=== PATIENT | male | born 1940 ===

== ENCOUNTER 2018-09-16 08:32 | Inpatient (IN) | payer MEDICARE, OTHER ==
--- NOTE | 2018-09-16 08:44 | ED PDOC ---
Arrival/HPI - General Time Seen by Provider: 09/16/18 08:44 Historian: Patient, Family (daughter) - History of Present Illness Narrative History of Present Illness (Text): 09/16/18 09:18 A 78 year old male, whose past medical history includes hypertension, orthopnea and possible cirrhosis, presents to the emergency department complaining of abdominal bloating and chest tightness. Patient is accompanied by daughter, who translates some Macedonian for patient when patient does not understand. Patient reports he has been feeling bloated for several days, having woken up to find abdomen bloated and as well as bilateral leg swelling. Per daughter, patient saw PMD yesterday and PMD instructed for patient to visit the ER as soon as possible. States also experiencing hematuria, nausea, vomiting, and shortness of breath. Patient denies any chest pain, abdominal pain, fever, chills, cough, stool changes, or any other complaints at this time. Also, patient denies any history of diabetes, cardiac issues. Patient has not taken his blood pressure medication for 1 month due to not having received them. Last bowel movement was earlier this morning. Patient denies history of smoking, however has been drinking, according to patient, since he was 9 years old. PMD: Dr. Felipe May Past Medical History - Provider Review Nursing Documentation Reviewed: Yes - Cardiac Hx Angina: No Hx Atrial Fibrillation: No Hx Congestive Heart Failure: No Hx WV: No Hx Hypertension: Yes Hx Pacemaker: No Hx Peripheral Vascular Disease: No - Pulmonary Hx Asthma: No Hx Chronic Obstructive Pulmonary Disease (COPD): No - Neurological Hx Seizures: No - Musculoskeletal/Rheumatological Hx Arthritis: Yes - Surgical History Hx Cardiac Catheterization: No Hx Coronary Artery Bypass Graft: No Family/Social History - Physician Review Nursing Documentation Reviewed: Yes Family/Social History: No Known Family HX Allergies/Home Meds Allergies/Adverse Reactions: Allergies No Known Allergies Allergy (Verified 07/24/16 11:28) Home Medications: Home Meds Medication Instructions Recorded Confirmed Aspirin [Ecotrin] 81 mg PO DAILY 07/24/16 09/16/18 Losartan [Cozaar] 50 mg PO DAILY 07/24/16 09/16/18 Review of Systems - Physician Review All systems were reviewed & negative as marked: Yes - Review of Systems Constitutional: absent: Fevers, Night Sweats Respiratory: SOB. absent: Cough Cardiovascular: absent: Chest Pain (chest tightness instead) Gastrointestinal: Nausea, Vomiting. absent: Abdominal Pain, Stool Changes Genitourinary Male: Hematuria Musculoskeletal: Other (bilateral lower extremity swelling.) Physical Exam Vital Signs Reviewed: Yes Vital Signs Temp Pulse Resp BP Pulse Ox 09/16/18 08:43 98.1 F 148 H 18 140/114 H 97 Temperature: Afebrile Blood Pressure: Normal Pulse: Tachycardic Respiratory Rate: Normal Appearance: Positive for: Well-Appearing, Non-Toxic, Comfortable Pain Distress: None Mental Status: Positive for: Alert and Oriented X 3 - Systems Exam Head: Present: Atraumatic, Normocephalic Pupils: Present: PERRL Extroacular Muscles: Present: EOMI Conjunctiva: Present: Normal Mouth: Present: Moist Mucous Membranes Neck: Present: Normal Range of Motion Respiratory/Chest: Present: Clear to Auscultation, Good Air Exchange. No: Respiratory Distress, Accessory Muscle Use Cardiovascular: Present: Tachycardic Abdomen: Present: Distention, Normal Bowel Sounds. No: Tenderness, Peritoneal Signs Genitourinary Male: Present: Other (scrotum edema) Back: Present: Normal Inspection Upper Extremity: Present: Normal Inspection. No: Cyanosis, Edema Lower Extremity: Present: Edema (from abdomen to scrotum to lower extremities b/l) Neurological: Present: GCS=15, CN II-XII Intact, Speech Normal Skin: Present: Warm, Dry, Normal Color. No: Rashes Psychiatric: Present: Alert, Oriented x 3, Normal Insight, Normal Concentration Medical Decision Making ED Course and Treatment: 09/16/18 09:22 Impression: 78 year old male with abdominal bloating, lower extremity bilateral swelling, scrotum swelling, chest tightness, nausea, vomiting, hematuria, and shortness of breath. Physical exam shows abdomen is distended with positive bowel sounds; lower extremity and scrotum edema. Plan: -- EKG -- Abd/Pelvis CT -- Chest X-ray -- Labs -- Dextrose -- Zofran -- Venous Blood Gas -- Urinalysis -- Reassess and disposition Progress Notes: EKG: Ordered, reviewed, and independently interpreted the EKG. Rate : 148 BPM Rhythm : Atrial Fibrillation Interpretation : No ST-segment elevations or depressions, no T-wave inversions, normal intervals. Comparison : No previous EKG for comparison. 09/16/2018 10:58 Abd/Pelvis CT IMPRESSION: Minimal ascites and subcutaneous edema. Moderate size right pleural effusion with adjacent consolidation in the right lo wer lobe. Small left effusion. Study otherwise unremarkable. Dictator: Guillaume Mann MD 09/16/2018 11:15 Chest X-ray IMPRESSION: Bilateral pleural effusions right larger than left with associated compressive atelectasis. These are new findings compared to the prior chest radiograph and are better visualized, confirmed on recent CT scan. Dictator: Guillaume Mann MD 09/16/18 11:24 Results discussed with patient. Lactate is 2.2 elevated; elevated BNP 8500, BUN is 25, and heart rate currently ranging from 110-mid 120s. After reviewing findings of CT Abd/Pelvis, blood culture and abx ordered for patient. Patient to be admitted. 09/16/18 12:25 Repeat EKG shows A-fib @ 125 BPM with normal QRS, no T-wave changes. Case discussed with Dr. Mckeon, who accepts patient for admission. Patient star yariel on Bernardo drip. - Lab Interpretations I have reviewed the lab results: Yes - Scribe Statement The provider has reviewed the documentation as recorded by the Scribe Gary Hernandez Provider Scribe Attestation: All medical record entries made by the Scribe were at my direction and personally dictated by me. I have reviewed the chart and agree that the record accurately reflects my personal performance of the history, physical exam, medical decision making, and the department course for this patient. I have also personally directed, reviewed, and agree with the discharge instructions and disposition. Disposition/Present on Arrival - Present on Arrival Any Indicators Present on Arrival: No History of DVT/PE: No History of Uncontrolled Diabetes: No Urinary Catheter: No History of Decub. Ulcer: No - Disposition Have Diagnosis and Disposition been Completed?: Yes Diagnosis: Cirrhosis of liver, Atrial fibrillation with RVR, Dyspnea Disposition: HOSPITALIZED Disposition Time: 12:00 Patient Plan: Admission, Telemetry Patient Problems: Current Active Problems Problem Status Onset Cirrhosis of liver Acute Atrial fibrillation with RVR Acute Dyspnea Acute Condition: FAIR
[2018-09-16] MEDS ORDERED: Multivitamin (MVI) 10 ML, Thiamine 100 MG, Folic Acid 1 MG in Dextrose 5% In Water 1,00... IV ONE (09:13)
[2018-09-16 09:32] LABS: VENOUS BLOOD GAS BASE EXCESS -1.1 mmol/L (0.0-2.0); VENOUS BLOOD GAS PO2 39 mm/Hg (30-55); VENOUS BLOOD PH 7.33 (7.32-7.43)
[2018-09-16 09:39] LABS: BASO # 0.02 K/mm3 (0.0-2.0); BASO % 0.3 % (0.0-3.0); EOS # 0.1 (0.0-0.7); EOS % 0.8 % (1.5-5.0); GRAN # 5.78 (1.4-6.5); GRAN % 76.8 % (50.0-68.0); HEMOGLOBIN 15.1 g/dL (14.0-18.0); LYMPH # 1.1 (1.2-3.4); LYMPH % 14.5 % (22.0-35.0); MEAN CELL VOLUME 91.1 fl (80.0-105.0); MEAN CORPUSCULAR HEMOGLOBIN 31.1 pg (25.0-35.0); MEAN CORPUSCULAR HGB CONC 34.2 g/dl (31.0-37.0); MEAN PLATELET VOLUME 11.8 fl (7.0-11.0); MONO # 0.6 (0.1-0.6); MONO % 7.6 % (1.0-6.0); RBC 4.85 10^6/uL (3.5-6.1); RED CELL DISTRIBUTION WIDTH 13.2 % (11.5-14.5); WHITE BLOOD COUNT 7.5 10^3/uL (4.5-11.0)
[2018-09-16 09:40] LABS: ALB/GLOB RATIO 1.3 (1.1-1.8); ALBUMIN 3.6 g/dL (3.0-4.8); ALT/SGPT 74 U/L (7-56); AST/SGOT 70 U/L (17-59); BLOOD UREA NITROGEN 25 mg/dL (7-21); CALCIUM 8.9 mg/dL (8.4-10.5); GFR NON-AFRICAN AMERICAN 58; LIPASE 230 U/L (23-300)
[2018-09-16 09:43] LABS: INR 1.39; PARTIAL THROMBOPLASTIN TIME 28.4 Seconds (25.1-36.5); PROTHROMBIN TIME 16.1 SECONDS (9.4-12.5)
[2018-09-16 09:51] LABS: B-TYPE NATRIURETIC PEPTIDE 8510 pg/mL (0-450); TROPONIN I 0.05 ng/mL
--- NOTE | 2018-09-16 11:02 | CT ---
Date of service: 09/16/2018 PROCEDURE: CT Abdomen and Pelvis with contrast HISTORY: abd pain/ascites COMPARISON: None. TECHNIQUE: Contrast dose: 150 cc of Omni 350 Radiation dose: Total exam DLP = 930.35 mGy-cm. This CT exam was performed using one or more of the following dose reduction techniques: Automated exposure control, adjustment of the mA and/or kV according to patient size, and/or use of iterative reconstruction technique. FINDINGS: LOWER THORAX: Moderate size right pleural effusion with adjacent consolidation in the right lower lobe. Small left effusion LIVER: Unremarkable. No gross lesion or ductal dilatation. GALLBLADDER AND BILE DUCTS: Unremarkable. PANCREAS: Unremarkable. No gross lesion or ductal dilatation. SPLEEN: Unremarkable. ADRENALS: Unremarkable. No mass. KIDNEYS AND URETERS: Unremarkable. No hydronephrosis. No solid mass. VASCULATURE: Unremarkable. No aortic aneurysm. Aortic calcification BOWEL: Unremarkable. No obstruction. No gross mural thickening. APPENDIX: Normal appendix. PERITONEUM: Minimal ascites. Mild subcutaneous edema LYMPH NODES: Unremarkable. No enlarged lymph nodes. BLADDER: Unremarkable. REPRODUCTIVE: Unremarkable. BONES: Multilevel disc degeneration OTHER FINDINGS: None. IMPRESSION: Minimal ascites and subcutaneous edema. Moderate size right pleural effusion with adjacent consolidation in the right lower lobe. Small left effusion The study is otherwise unremarkable
[2018-09-16] MEDS ORDERED: cefTRIAXone 1 gm 1 GM/100 ML BAG IVPB STA (11:10)
--- NOTE | 2018-09-16 11:19 | RAD ---
Date of service: 09/16/2018 HISTORY: Shortness of breath. COMPARISON: 03/20/2016 single-view chest September 16, 2018 CT abdomen and pelvis demonstrating right pleural effusion and compressive atelectasis. Small left pleural effusion was also identified. FINDINGS: LUNGS: Consolidative changes bilaterally right greater than left lower lobe distribution. PLEURA: Bilateral pleural effusions right larger than left. CARDIOVASCULAR: No atherosclerotic calcification present No radiographic findings to suggest acute or significant cardiovascular disease. OSSEOUS STRUCTURES: No significant abnormalities. VISUALIZED UPPER ABDOMEN: Normal. OTHER FINDINGS: None. IMPRESSION: Bilateral pleural effusions right larger than left with associated compressive atelectasis. These are new findings compared to the prior chest radiograph and are better visualize, confirmed on recent CT scan.
[2018-09-16] MEDS ORDERED: diltiaZEM IVPB 100mg in NS 100 ML IV PRN (12:26)
[2018-09-16 13:56] LABS: VENOUS BLOOD GAS BASE EXCESS -0.7 mmol/L (0.0-2.0); VENOUS BLOOD GAS PO2 33 mm/Hg (30-55); VENOUS BLOOD PH 7.29 (7.32-7.43)
[2018-09-16] MEDS ORDERED: Enoxaparin 100 mg Syringe SC STA (14:33)
--- NOTE | 2018-09-16 14:48 | CP.PCM.HP ---
<Mitch Reinoso - Last Filed: 09/16/18 15:34> History of Present Illness - History of Present Illness History of Present Illness: Mitch Reinoso DO, PGY-1 Hospitalist Admission History and Physical for Dr. Barraza CC: worsening LE swelling, chest discomfort, shortness of breath Mr. Arias is a 78 year old male with PMH of HTN, alcoholic liver cirrhosis, intermittent angina (stress test in 2016 was normal), and BPH presented to [facility] ED with a complaint of b/l LE swelling worsening over the past two months. He saw his PMD, Dr. Mya, about this problem who was concerned and recommended he come to ED. He admits to a history of heavy drinking, approximately 4-5 beers per day and/or hard liquor nearly everyday since he was 9 years old. He states that he also has chest discomfort that has been worsening over the past few days. He describes the pain as a dull, achy type pain that is intermittent and worse with exertion. He also admits to SOB with exertion. He also endorses dry cough, orthopnea, PND, and gross hematuria. Otherwise he denies fever, chills, palpitations, nausea/vomiting/diarrhea, peripheral numbness tingling, BENTLEY, vision changes, or dysuria. Further evaluation in the ED revealed patient is in AFib. He denies hx of AFib, and states he saw Dr. Molina in the past for stress test but has otherwise had no heart problems. 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 Denies current or prior tobacco use. Denies other drug use. Present on Admission - Present on Admission Any Indicators Present on Admission: No History of DVT/PE: No History of Uncontrolled Diabetes: No Urinary Catheter: No Decubitus Ulcer Present: No Review of Systems - Constitutional Constitutional: absent: Chills, Fever - EENT Eyes: absent: Change in Vision, Loss of Vision - Cardiovascular Cardiovascular: Chest Pain, Claudication, Dyspnea, Irregular Heart Rhythm, Orthopnea, Paroxysmal Nocturnal Dyspnea, Pedal Edema, Rapid Heart Rate. absent: Chest Pain at Rest, Diaphoresis - Respiratory Respiratory: Cough, Dyspnea, Dyspnea on Exertion. absent: Wheezing, Chest Congestion, Pain with Coughing - Gastrointestinal Gastrointestinal: Bloating. absent: Abdominal Pain, Diarrhea, Nausea, Vomiting - Genitourinary Genitourinary: Hematuria. absent: Change in Urinary Stream, Difficulty Urinating, Dysuria, Flank Pain - Reproductive: Male Additional comments: testicular and penile swelling - Musculoskeletal Musculoskeletal: Joint Swelling. absent: Muscle Weakness, Numbness - Integumentary Integumentary: Swelling. absent: Skin Pain, Sores - Neurological Neurological: absent: Numbness, Weakness - Endocrine Endocrine: absent: Excessive Sweating, Fatigue, Palpitations - Hematologic/Lymphatic Hematologic: absent: Easy Bleeding, Easy Bruising Past Patient History - Infectious Disease Hx of Infectious Diseases: None - Past Social History Smoking Status: Unknown If Ever Smoked - CARDIAC Hx Angina: No Hx Atrial Fibrillation: No Hx Congestive Heart Failure: No Hx Heart Attack: No Hx Hypertension: Yes Hx Pacemaker: No Hx Peripheral Vascular Disease: No - PULMONARY Hx Asthma: No Hx Chronic Obstructive Pulmonary Disease (COPD): No - NEUROLOGICAL Hx Seizures: No - MUSCULOSKELETAL/RHEUMATOLOGICAL Hx Arthritis: Yes - PSYCHIATRIC Hx Substance Use: No - SURGICAL HISTORY Hx Cardiac Catheterization: No Hx Coronary Artery Bypass Graft: No - ANESTHESIA Hx Anesthesia Reactions: No Meds Allergies/Adverse Reactions: Allergies Allergy/AdvReac Type Severity Reaction Status Date / Time No Known Allergies Allergy Verified 09/16/18 15:21 Physical Exam - Constitutional Appears: Non-toxic, No Acute Distress - Head Exam Head Exam: ATRAUMATIC, NORMOCEPHALIC - Eye Exam Eye Exam: EOMI, Scleral icterus - ENT Exam ENT Exam: Mucous Membranes Moist - Neck Exam Neck exam: Positive for: Full Rom, Normal Inspection - Respiratory Exam Respiratory Exam: Decreased Breath Sounds (slight decreased breath sounds at bases b/l), Clear to Auscultation Bilateral. absent: Accessory Muscle Use, Chest Wall Tenderness, Rales, Rhonchi, Wheezes - Cardiovascular Exam Cardiovascular Exam: Irregular Rhythm, +S1, +S2. absent: Diastolic murmur, Gallop, Rubs, Systolic Murmur - GI/Abdominal Exam GI & Abdominal Exam: Distended, Normal Bowel Sounds. absent: Firm, Guarding, Hernia, Rebound Additional comments: significant hepatomegaly palpated - Exam Exam: Scrotal Swelling. absent: Circumcision, Testicular Tenderness, Uretheral Discharge - Extremities Exam Extremities exam: Positive for: pedal edema, tenderness (calf tenderness on right), pedal pulses present Additional comments: significant b/l LE 2+ pitting edema - Back Exam Back exam: NORMAL INSPECTION - Neurological Exam Neurological exam: Alert, Oriented x3 - Psychiatric Exam Psychiatric exam: Normal Affect, Normal Mood - Skin Skin Exam: Dry, Intact, Warm Results - Vital Signs Recent Vital Signs: Last Vital Signs Temp 98.9 F 09/16/18 14:00 Pulse 108 H 09/16/18 14:00 Resp 18 09/16/18 13:33 BP 131/80 09/16/18 14:00 Pulse Ox 97 09/16/18 14:00 - Labs Result Diagrams: 09/16/18 09:20 09/16/18 09:20 Labs: Laboratory Results - last 24 hr 09/16/18 09/16/18 09/16/18 09:20 09:20 09:20 WBC 7.5 RBC 4.85 Hgb 15.1 Hct 44.2 MCV 91.1 MCH 31.1 MCHC 34.2 RDW 13.2 Plt Count 219 MPV 11.8 H Gran % 76.8 H Lymph % (Auto) 14.5 L Snyder % (Auto) 7.6 H Eos % (Auto) 0.8 L Baso % (Auto) 0.3 Gran # 5.78 Lymph # (Auto) 1.1 L Snyder # (Auto) 0.6 Eos # (Auto) 0.1 Baso # (Auto) 0.02 PT 16.1 H INR 1.39 APTT 28.4 pO2 39 VBG pH 7.33 VBG pCO2 48.0 VBG HCO3 25.3 VBG Total CO2 26.8 VBG O2 Sat (Calc) 74.5 H VBG Base Excess -1.1 L VBG Potassium 4.1 Sodium 133.0 Chloride 97.0 L Glucose 124 H Lactate 2.2 H FiO2 21.0 Potassium Carbon Dioxide Anion Gap BUN Creatinine Est GFR ( Amer) Est GFR (Non-Af Amer) Random Glucose Calcium Magnesium Total Bilirubin AST ALT Alkaline Phosphatase Troponin I NT-Pro-B Natriuret Pep Total Protein Albumin Globulin Albumin/Globulin Ratio Lipase Venous Blood Potassium 4.1 09/16/18 09/16/18 09:20 13:20 WBC RBC Hgb Hct MCV MCH MCHC RDW Plt Count MPV Gran % Lymph % (Auto) Snyder % (Auto) Eos % (Auto) Baso % (Auto) Gran # Lymph # (Auto) Snyder # (Auto) Eos # (Auto) Baso # (Auto) PT INR APTT pO2 33 VBG pH 7.29 L VBG pCO2 56.0 VBG HCO3 26.9 VBG Total CO2 28.6 H VBG O2 Sat (Calc) 63.6 VBG Base Excess -0.7 L VBG Potassium 4.2 Sodium 134 131.0 L Chloride 99 95.0 L Glucose 125 H Lactate 2.4 H FiO2 21.0 Potassium 4.2 Carbon Dioxide 26 Anion Gap 14 BUN 25 H Creatinine 1.2 Est GFR ( Amer) > 60 Est GFR (Non-Af Amer) 58 Random Glucose 122 H Calcium 8.9 Magnesium 1.9 Total Bilirubin 2.8 H AST 70 H ALT 74 H Alkaline Phosphatase 157 H Troponin I 0.05 NT-Pro-B Natriuret Pep 8510 H Total Protein 6.4 Albumin 3.6 Globulin 2.8 Albumin/Globulin Ratio 1.3 Lipase 230 Venous Blood Potassium 4.2 Assessment & Plan - Assessment and Plan (Free Text) Assessment: 78 yo M with PMH of HTN, alcoholic liver cirrhosis, angina (prior normal stress test) presents with worsening LE edema, in AFib, has chest discomfort, orthopnea, PND, b/l pleural effusions, and gross hematuria. Plan: 1. LE edema Likely 2/2 undiagnosed alcoholic liver cirrhosis Patient admits to heavy drinking history Patient appears jaundiced, icteric on exam, and has significant hepatomegaly CTAP shows ascites surrounding the liver and basilar pleural effusions b/l Will start lasix 40 mg IVP q12h Will get b/l LE doppler to r/o DVT On therapeutic lovenox for episode of AFib On empiric rocephin, zithromax for SBP ppx, f/u procal GI consulted, recs appreciated 2. Chest discomfort/new onset AFib Found on EKG on admission, still has irregularly irregular rhythm on exam Patient does not admit to any prior cardiac history other than negative stress test At the time he had anginal symptoms with exertion which he states have not returned He saw Dr. Molina in the past Continue diltiazem drip Monitor HR closely on telemetry Therapeutic lovenox given today BNP also elevated at 8510 Will get baseline echo F/u further cardiology recs Cardiology consulted, recs appreciated 3. Gross hematuria Patient states he has noticed blood in his urine for the past week Will get UA, urine cx Patient states he has history of BPH and has seen urologist in the past On empiric rocephin, zithromax for SBP ppx Consider urology and/or ID consult depending on results of UA, cx 4. B/l Pleural effusions Basilar effusions found on CTAP Likely 2/2 volume overload from worsening cirrhosis Has dyspnea on exertion, orthopnea, PND F/u pulmonology recs for possible thoracentesis vs medical management Pulmonology following, reccs appreciated 5. Cirrhosis Likely 2/2 chronic alcohol abuse MELD score of 18 GI consulted, recs appreciated 6. Abdominal bloating On protonix for ppx Consider adding malox as needed DVT/GI PPX: Lovenox (therapeutic for AFib, f/u further cardiology recs), SCD, protonix Full Code HHD Monitor on telemetry Case and plan reviewed and discussed with my attending Dr. Christi Reinoso, IM Resident PGY-1 Pager: [phone] <Cathi Barraza - Last Filed: 09/18/18 08:17> Results - Vital Signs Recent Vital Signs: Last Vital Signs Temp 98.3 F 09/18/18 06:00 Pulse 110 H 09/18/18 06:00 Resp 20 09/18/18 06:00 BP 103/68 09/18/18 06:00 Pulse Ox 96 09/18/18 06:00 - Labs Result Diagrams: 09/18/18 06:00 09/18/18 06:00 Labs: Laboratory Results - last 24 hr 09/16/18 09/16/18 09/17/18 17:00 17:00 06:00 WBC RBC Hgb Hct MCV MCH MCHC RDW Plt Count MPV Gran % Lymph % (Auto) Snyder % (Auto) Eos % (Auto) Baso % (Auto) Gran # Lymph # (Auto) Snyder # (Auto) Eos # (Auto) Baso # (Auto) Sodium Potassium Chloride Carbon Dioxide Anion Gap BUN Creatinine Est GFR ( Amer) Est GFR (Non-Af Amer) Random Glucose Hemoglobin A1c 6.0 Calcium Phosphorus Magnesium Total Bilirubin AST ALT Alkaline Phosphatase Total Protein Albumin Globulin Albumin/Globulin Ratio Procalcitonin < 0.05 L Hepatitis A IgM Ab Negative Hep Bs Antigen Negative Hep B Core IgM Ab Negative Hepatitis C Antibody Negative 09/18/18 09/18/18 06:00 06:00 WBC 6.0 D RBC 4.55 Hgb 13.8 L Hct 40.9 L MCV 89.9 MCH 30.3 MCHC 33.7 RDW 13.0 Plt Count 193 MPV 11.8 H Gran % 70.5 H Lymph % (Auto) 18.3 L Snyder % (Auto) 8.2 H Eos % (Auto) 2.5 Baso % (Auto) 0.5 Gran # 4.24 Lymph # (Auto) 1.1 L Snyder # (Auto) 0.5 Eos # (Auto) 0.2 Baso # (Auto) 0.03 Sodium 134 Potassium 3.3 L Chloride 95 L Carbon Dioxide 32 Anion Gap 11 BUN 21 Creatinine 1.2 Est GFR ( Amer) > 60 Est GFR (Non-Af Amer) 58 Random Glucose 88 Hemoglobin A1c Calcium 8.5 Phosphorus 4.6 H Magnesium 1.9 Total Bilirubin 1.6 H AST 47 ALT 52 Alkaline Phosphatase 106 Total Protein 5.6 L Albumin 3.0 Globulin 2.6 Albumin/Globulin Ratio 1.1 Procalcitonin Hepatitis A IgM Ab Hep Bs Antigen Hep B Core IgM Ab Hepatitis C Antibody Attending/Attestation - Attestation I have personally seen and examined this patient.: Yes I have fully participated in the care of the patient.: Yes I have reviewed all pertinent clinical information: Yes Notes (Text): 09/18/18 08:13 Attending note; Patient seen and examined with resident in ER. Patient's daughter by the bedside. History from patient's daughter. Patient is a 78 year old male with PMH of HTN, alcohol abuse, intermittent angina (stress test in 2016 was normal), BPH admitted with bilateral lower extremity swelling worsening over the past two months. Patient is also complaining of some exertional dyspnea. 1. Exertional dyspnea and bilateral lower extremity swelling. Possible CHF. Started on IV Lasix. Echocardiogram ordered. Lower extremity Doppler ordered to rule out DVT. Cardiology evaluation requested. 2. New-onset A. fib; currently on Cardizem. Started on therapeutic dose Lovenox. Follow-up with cardiology closely. 3. Chronic alcohol abuse. Complete alcohol cessation is strongly recommended. Monitor with CIWA protocol. Ativan when necessary ordered. 4. Elevated LFTs and mild ascites; secondary to alcohol abuse. Monitor closely. 5. Bilateral pleural effusion; mostly secondary to CHF. Pulmonary evaluation requested. IR requested for possible thoracentesis. 6. Dark urine; possibly concentrated urine.UA ordered. Physical therapy evaluation requested. Upon discharge the patient will follow up with PMD .
[2018-09-16 16:04] VITALS: BMI 34.3
[2018-09-16] MEDS ORDERED: Influenza Vaccine 60 mcg/0.5 mL SYR (4YR UP) IM ONE (16:04)
[2018-09-16] MEDS ORDERED: Pneumococcal 23-Valent Vaccine IM ONE (16:04)
--- NOTE | 2018-09-16 17:03 | CP.PCM.CON ---
History of Present Illness - History of Present Illness History of Present Illness: PULMONARY CONSULT NOTE HPI Patient is 78yo male with PMHx of HTN, heavy etoh abuse, BPH, presented to the ER complaining of b/l LE edema worsening over last 2 months, associated with chronic cough productive of clear sputum, and SOB, particularly on exertion. Pt denies, fever, chills, chest pain, palpitations, BENT[place], dizziness. Pt drinks 3-4 beers/day for 64years. No other constitutional symptoms. CXR revealed R>L pleural effusion, which is new. PMH: HTN, alcoholic liver cirrhosis, BPH PSH: hand surgery Allergies: NKDA Meds: as per EMR Fam Hx: non-contributory Soc Hx: admits to drinking about 4-5 beers or more daily since age 9. Denies current or prior tobacco use. Denies other drug use. 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 ASCITES,SCROTAL EDEMA - MUSCULOSKELETAL/RHEUMATOLOGICAL Hx Arthritis: Yes - GASTROINTESTINAL Hx Gastrointestinal Disorders: Yes Hx Liver Failure: Yes (CIRRHOSIS OF LIVER.) - GENITOURINARY/GYNECOLOGICAL Hx Genitourinary Disorders: No - PSYCHIATRIC Hx Substance Use: No - SURGICAL HISTORY Hx Cardiac Catheterization: No Hx Coronary Artery Bypass Graft: No - ANESTHESIA Hx Anesthesia Reactions: No Meds Allergies/Adverse Reactions: Allergies Allergy/AdvReac Type Severity Reaction Status Date / Time No Known Allergies Allergy Verified 09/16/18 15:21 - Medications Medications: Current Medications Aspirin (Aspirin Chewable) 81 mg PO DAILY [facility] Last Admin: 09/16/18 15:05 Dose: 81 mg Enoxaparin Sodium (Lovenox) 90 mg SC Q12 ROSANNE; Protocol Furosemide (Lasix) 40 mg IVP Q12H ROSANNE Last Admin: 09/16/18 15:05 Dose: 40 mg diltiaZEM IVPB 100mg in NS (Cardizem 100mg In Ns) 100 mls @ 5 mls/hr IV .Q20H PRN; Protocol PRN Reason: TITRATE PER MD ORDER Last Admin: 09/16/18 12:49 Dose: 5 mg/hr, 5 mls/hr Ceftriaxone Sodium (Rocephin 1 Gram Ivpb) 1 gm in 100 mls @ 100 mls/hr IVPB DAILY [facility]ANNE; Protocol Azithromycin (Zithromax 500mg In Ns) 500 mg in 250 mls @ 167 mls/hr IVPB DAILY [facility]ANNE; Protocol Lorazepam (Ativan) 2 mg IVP Q6H PRN; Protocol PRN Reason: Symptoms of alcohol withdrawl Pantoprazole Sodium (Protonix Ec Tab) 40 mg PO 0600 [facility] Physical Exam - Constitutional Appears: Non-toxic, No Acute Distress, Younger Than Stated Age - Head Exam Head Exam: NORMAL INSPECTION - Eye Exam Eye Exam: Normal appearance - ENT Exam ENT Exam: Mucous Membranes Moist - Neck Exam Neck exam: Positive for: Full Rom - Respiratory Exam Respiratory Exam: Decreased Breath Sounds, Rales, NORMAL BREATHING PATTERN - Cardiovascular Exam Cardiovascular Exam: REGULAR RHYTHM, +S1, +S2 - GI/Abdominal Exam GI & Abdominal Exam: Normal Bowel Sounds, Soft - Extremities Exam Additional comments: +2 edema b/l - Back Exam Back exam: NORMAL INSPECTION - Neurological Exam Neurological exam: Alert, Oriented x3 Results - Vital Signs Recent Vital Signs: Last Vital Signs Temp 98.9 F 09/16/18 14:00 Pulse 108 H 09/16/18 14:00 Resp 18 09/16/18 15:23 BP 133/87 09/16/18 15:05 Pulse Ox 97 09/16/18 14:00 - Labs Result Diagrams: 09/16/18 09:20 09/16/18 09:20 Labs: Laboratory Results - last 24 hr 09/16/18 09/16/18 09/16/18 09:20 09:20 09:20 WBC 7.5 RBC 4.85 Hgb 15.1 Hct 44.2 MCV 91.1 MCH 31.1 MCHC 34.2 RDW 13.2 Plt Count 219 MPV 11.8 H Gran % 76.8 H Lymph % (Auto) 14.5 L [place] % (Auto) 7.6 H Eos % (Auto) 0.8 L Baso % (Auto) 0.3 Gran # 5.78 Lymph # (Auto) 1.1 L [place] # (Auto) 0.6 Eos # (Auto) 0.1 Baso # (Auto) 0.02 PT 16.1 H INR 1.39 APTT 28.4 pO2 39 VBG pH 7.33 VBG pCO2 48.0 VBG HCO3 25.3 VBG Total CO2 26.8 VBG O2 Sat (Calc) 74.5 H VBG Base Excess -1.1 L VBG Potassium 4.1 Sodium 133.0 Chloride 97.0 L Glucose 124 H Lactate 2.2 H FiO2 21.0 Potassium Carbon Dioxide Anion Gap BUN Creatinine Est GFR ( Amer) Est GFR (Non-Af Amer) Random Glucose Calcium Magnesium Total Bilirubin AST ALT Alkaline Phosphatase Troponin I NT-Pro-B Natriuret Pep Total Protein Albumin Globulin Albumin/Globulin Ratio Lipase Venous Blood Potassium 4.1 09/16/18 09/16/18 09:20 13:20 WBC RBC Hgb Hct MCV MCH MCHC RDW Plt Count MPV Gran % Lymph % (Auto) Cost[place] % (Auto) Eos % (Auto) Baso % (Auto) Gran # Lymph # (Auto) Costilla # (Auto) Eos # (Auto) Baso # (Auto) PT INR APTT pO2 33 VBG pH 7.29 L VBG pCO2 56.0 VBG HCO3 26.9 VBG Total CO2 28.6 H VBG O2 Sat (Calc) 63.6 VBG Base Excess -0.7 L VBG Potassium 4.2 Sodium 134 131.0 L Chloride 99 95.0 L Glucose 125 H Lactate 2.4 H FiO2 21.0 Potassium 4.2 Carbon Dioxide 26 Anion Gap 14 BUN 25 H Creatinine 1.2 Est GFR ( Amer) > 60 Est GFR (Non-Af Amer) 58 Random Glucose 122 H Calcium 8.9 Magnesium 1.9 Total Bilirubin 2.8 H AST 70 H ALT 74 H Alkaline Phosphatase 157 H Troponin I 0.05 NT-Pro-B Natriuret Pep 8510 H Total Protein 6.4 Albumin 3.6 Globulin 2.8 Albumin/Globulin Ratio 1.3 Lipase 230 Venous Blood Potassium 4.2 Assessment & Plan - Assessment and Plan (Free Text) Assessment: 78 yo male with CAP, Pleural effusion, SOB/GOFF CAP Pleural effusion SOB/GOFF Cirrhosis EtOH abuse - currently afebrile, HD stable, comfortable on room air, on cardizem drip at 5mg/hr, Afib (new) - labs, imaging, chart reviewed - on exam has decreased breath sounds on the right and rales bilaterally - on bedside U/S of lung, demonstrates moderate to large R pleural effusion, with B lines bilaterally - Bedside ECHO demonstrates mild pericardial effusion, and depressed EF (official ECHO pending) - differential diagnosis of pleural effusions is broad, and not limited to volume overload, hepatic hydrothorax, parapneumonic effsion(less likely), mal ignancy (less likely) - obtain CT chest without contrast - obtain ECHO - IR guided thoracentesis - Rocephin, Azithro - Check Procal, Urine Legionella, Strep - Duonebs PRN - Rate control - cardiology eval - Pulmonary will continue to follow
[2018-09-16] MEDS ORDERED: Digoxin 500 mcg/2ml (0.5 mg/2ml) Inj IVP ONE ×2 (17:45→22:00)
[2018-09-16] MEDS ORDERED: metOLazone 5 MG TAB PO STA (17:48)
[2018-09-16 17:58] LABS: URINE BILIRUBIN NEGATIVE (NEGATIVE); URINE BLOOD NEGATIVE (NEGATIVE); URINE GLUCOSE (UA) NEGATIVE (NEGATIVE); URINE LEUKOCYTE ESTERASE NEGATIVE Leu/uL (NEGATIVE); URINE PROTEIN NEGATIVE mg/dL (<30 mg/dL); URINE UROBILINOGEN 0.2 E.U./dL (<1 E.U./dL)
[2018-09-16 18:00] LABS: URINE APPEARANCE CLEAR (CLEAR); URINE COLOR YELLOW (YELLOW)
[2018-09-16] MEDS: Milrinone 20mg/100ml D5W 100 ML IV PRN (18:15)
--- NOTE | 2018-09-16 18:16 | US ---
HISTORY: Leg pain and swelling. Evaluate for DVT PHYSICIAN(S): Uri oDzier MD. TECHNIQUE: Duplex sonography and color-flow Doppler with graded compression were used to evaluate the deep venous systems of both lower extremities. The exam is limited by edema. The tibial veins are not well seen FINDINGS: The visualized deep venous systems of both lower extremities are sonographically normal and compressible. Normal wave forms and augmentation are seen. There is no sonographic evidence for deep venous thrombosis in the visualized segments of both lower extremities. IMPRESSION: No sonographic evidence for deep venous thrombosis in the visualized segments of both lower extremities. Limited study
--- NOTE | 2018-09-16 18:39 | CARD ---
APPROVED REPORT Date of service: 09/16/2018 EKG Measurement Heart [id number] <Conclusion> Atrial fibrillation with rapid ventricular response Low voltage QRS Nonspecific T wave abnormality, probably digitalis effect Abnormal ECG
--- NOTE | 2018-09-16 18:45 | CARD ---
APPROVED REPORT Date of service: 09/16/2018 EKG Measurement Heart [id number] <Conclusion> Atrial fibrillation with rapid ventricular response Low voltage QRS Nonspecific T wave abnormality, probably digitalis effect Abnormal ECG
[2018-09-16 18:59] LABS: PH,URINE 5.5 (4.7-8.0); URINE BILIRUBIN NEGATIVE (NEGATIVE); URINE BLOOD NEGATIVE (NEGATIVE); URINE GLUCOSE (UA) NEGATIVE (NEGATIVE); URINE LEUKOCYTE ESTERASE NEGATIVE Leu/uL (NEGATIVE); URINE PROTEIN NEGATIVE mg/dL (<30 mg/dL); URINE UROBILINOGEN 0.2 E.U./dL (<1 E.U./dL)
[2018-09-16 19:00] LABS: URINE APPEARANCE CLEAR (CLEAR); URINE COLOR YELLOW (YELLOW)
[2018-09-16 19:20] LABS: BODY FLUID TYPE PLEURAL
--- NOTE | 2018-09-16 19:42 | US ---
PROCEDURE: Ultrasound guided right thoracentesis. CLINICAL HISTORY: ETOH abuse. Bilateral pleural effusions, greater on the right than the left. Needs diagnostic and therapeutic thoracentesis PHYSICIAN(S): Uri Dozier MD. TECHNIQUE: The relative risks and indications of the procedure were explained to the patient and consent obtained. The patient was placed in a sitting position on the stretcher and sonography of the chest performed. This revealed a small to moderate right pleural effusion and a tiny left pleural effusion.. A right posterolateral intercostal approach was selected and the area prepped and draped usual sterile fashion. 1% Xylocaine was used to anesthetize the skin and soft tissues. A 7 Bengali thoracentesis catheter was trocared into the right pleural cavity and 850of clear straw-colored fluid aspirated. Specimens were sent to the lab. IMPRESSION: 1. Ultrasound guided right thoracentesis. 850 cc of clear straw-colored fluid was aspirated. The appropriate labs were sent
[2018-09-16 20:43] LABS: BF GROSS APPEARANCE SL CLOUDY (CLEAR)
[2018-09-16 20:44] LABS: BODY FLUID TOTAL COUNT 100 (0-0)
[2018-09-16] MEDS: Enoxaparin 100 mg Syringe SC SCH (22:18)
[2018-09-17] MEDS: Milrinone 20mg/100ml D5W 100 ML IV PRN ×2 (02:32→14:49)
[2018-09-17] MEDS: Pantoprazole 40 mg EC Tab PO SCH (05:40)
[2018-09-17 06:46] LABS: ALB/GLOB RATIO 1.2 (1.1-1.8); ALT/SGPT 61 U/L (7-56); AST/SGOT 53 U/L (17-59); BLOOD UREA NITROGEN 19 mg/dL (7-21); CALCIUM 8.6 mg/dL (8.4-10.5); GFR NON-AFRICAN AMERICAN > 60; HDL CHOLESTEROL 36 mg/dL (29-60)
[2018-09-17 06:53] LABS: LDL CHOLESTEROL 80 mg/dL (0-129)
[2018-09-17 07:04] LABS: BASO # 0.04 K/mm3 (0.0-2.0); BASO % 0.5 % (0.0-3.0); EOS # 0.1 (0.0-0.7); EOS % 1.7 % (1.5-5.0); GRAN # 5.42 (1.4-6.5); GRAN % 71.9 % (50.0-68.0); HEMOGLOBIN 13.8 g/dL (14.0-18.0); LYMPH # 1.4 (1.2-3.4); LYMPH % 18.9 % (22.0-35.0); MEAN CORPUSCULAR HEMOGLOBIN 30.3 pg (25.0-35.0); MEAN CORPUSCULAR HGB CONC 33.3 g/dl (31.0-37.0); MEAN PLATELET VOLUME 11.8 fl (7.0-11.0); MONO # 0.5 (0.1-0.6); RBC 4.56 10^6/uL (3.5-6.1); WHITE BLOOD COUNT 7.6 10^3/uL (4.5-11.0)
--- NOTE | 2018-09-17 08:40 | CON ---
DATE: 09/16/2017 CARDIAC EVALUATION REASON FOR EVALUATION: Admitted with shortness of breath, possibly congestive heart failure. BRIEF CLINICAL HISTORY: A 78-year-old male with past medical history significant for hypertension, alcohol abuse, alcoholic liver disease, cirrhosis, admitted with complaint of progressively worsening shortness of breath, two months, over a period, the patient developed PND, orthopnea and now with dyspnea on minimal exertional activity initially, now with orthopnea and PND. PAST HISTORY: Significant for hypertension, alcoholic liver disease, cirrhosis. Recent cardiac workup as follows. The patient had a stress test, 07/24/2016, that shows an ejection fraction 52%, with essentially significant no reversible ischemia, 07/24/2016. SOCIAL HISTORY: Denies any smoking, but used to drink heavily, starting at the age of 9 and now drinks every day 24 ounces of beer, 3 to 4 cans everyday with hard liquor as well. Family is at the bedside, information obtained through the family, especially the daughter and the son-in-law. The daughter name Ramona, telephone number [phone]. ALLERGIES: NO KNOWN DRUG ALLERGY. CURRENT MEDICATION: The patient at home was taking losartan 50 mg, aspirin 81 mg daily. REVIEW OF SYSTEMS: As per HPI. PHYSICAL EXAMINATION VITAL SIGNS: Height of the patient 5 feet 6 inches, weight of the patient 213 pounds, body mass index 34 kg/m2. Temperature afebrile, heart rate 108, blood pressure 133/62. HEENT: PERRLA. Intact. NECK: Supple. No carotid bruit or thyromegaly. CHEST: Clear to auscultation. HEART: S1, S2, regular. ABDOMEN: Soft. EXTREMITIES: Clubbing and cyanosis negative. LABORATORY DATA: EKG shows AFib with a rate of 70. Blood workup as follows. WBC 7.5, hemoglobin 15.1, hematocrit 44.2, platelet count 215. Chemistry shows sodium 134, potassium 4.2, chloride 99, carbon dioxide 26, anion gap of 14, BUN 25, creatinine 1.2. BNP 8516. IMAGING: Chest x-ray showed possibly bilateral pleural effusion, moderate right, lesser on the left side. IMPRESSION: A 78-year-old male with past medical history significant for alcoholic abuse, alcoholic liver disease, admitted with progressively worsening shortness of breath, congestive heart failure, most likely secondary to systolic dysfunction secondary to alcoholic liver disease as well as alcoholic cardiomyopathy. New onset atrial fibrillation, paroxysmal nocturnal dyspnea, orthopnea, 2+ pedal edema. RECOMMENDATION: Aggressive diuresis, put low dose of Primacor, continue Cardizem for now and later on change to the Cardizem if the rate is well controlled to p.o. versus verapamil p.o. Continue Lovenox for DVT. Discussed with the patient. We will get echo to assess LV function. Further recommendation based on hospital course, we will follow with you. Eventually, the patient may need cardiac catheterization to evaluate coronary anatomy. We will follow with you. Thank you Dr. Barraza for providing an opportunity in taking care of the patient, Jayce Arias. Karan Moore MD
--- NOTE | 2018-09-17 09:03 | RAD ---
Date of service: 09/17/2018 HISTORY: rt thora COMPARISON: Portable chest 09/16/2018 TECHNIQUE: Chest PA and lateral FINDINGS: LUNGS: There is improved aeration of the right base may reflect improved pleural effusion and/or airspace disease. No left pleural effusion or airspace disease appreciated. No pneumothorax bilaterally. PLEURA: As above. CARDIOVASCULAR: Cardiomegaly stable. No pulmonary vascular congestion. No calcified aortic atherosclerotic plaque appreciated. OSSEOUS STRUCTURES: No significant abnormalities. VISUALIZED UPPER ABDOMEN: Normal. OTHER FINDINGS: None. IMPRESSION: Stable cardiomegaly. Improved aeration right base with diminished right pleural effusion and/or airspace disease noted.
--- NOTE | 2018-09-17 09:53 | CP.PCM.PN ---
Subjective - Date & Time of Evaluation Date of Evaluation: 09/17/18 Time of Evaluation: 06:50 - Subjective Subjective: Awake, alert, no distress Reason for consultation and follow up: Cardiac evaluation of leg swelling,shortness of breath intermittent chest pain. History of hypertension,alcoholic liver cirrhosis, intermittent angina and BPH. Seen and examined by me and Dr. Moore Objective - Vital Signs/Intake and Output Vital Signs (last 24 hours): Temp Pulse Resp BP Pulse Ox 97.5 F L 108 H 20 129/81 91 L 09/17/18 06:00 09/17/18 06:00 09/17/18 06:00 09/17/18 06:00 09/17/18 06:00 Intake and Output: 09/17/18 09/17/18 06:59 18:59 Intake Total 245 Output Total 0 Balance -1805 - Medications Medications: Current Medications Aspirin (Aspirin Chewable) 81 mg PO DAILY [facility] Last Admin: 09/16/18 15:05 Dose: 81 mg Carvedilol (Coreg) 3.125 mg PO BID [facility] Last Admin: 09/16/18 18:20 Dose: 3.125 mg Enoxaparin Sodium (Lovenox) 90 mg SC Q12 ROSANNE; Protocol Last Admin: 09/16/18 22:18 Dose: 90 mg Furosemide (Lasix) 40 mg IVP 0600,1800 [facility] Last Admin: 09/17/18 05:39 Dose: 40 mg Ceftriaxone Sodium (Rocephin 1 Gram Ivpb) 1 gm in 100 mls @ 100 mls/hr IVPB DAILY [facility]NE; Protocol Azithromycin (Zithromax 500mg In Ns) 500 mg in 250 mls @ 167 mls/hr IVPB DAILY [facility]ANNE; Protocol Milrinone Lactate/Dextrose (Primacor 20mg/100ml D5w) 100 mls @ 10.869 mls/hr IV .Q9H13M PRN; Protocol PRN Reason: TITRATE PER MD ORDER Last Admin: 09/17/18 02:32 Dose: 0.375 mcg/kg/min, 10.869 mls/hr Lisinopril (Zestril) 2.5 mg PO DAILY [facility] Lorazepam (Ativan) 2 mg IVP Q6H PRN; Protocol PRN Reason: Symptoms of alcohol withdrawl Metolazone (Zaroxolyn) 5 mg PO DAILY [facility] Stop: 09/20/18 23:59 Pantoprazole Sodium (Protonix Ec Tab) 40 mg PO 0600 [facility] Last Admin: 09/17/18 05:40 Dose: 40 mg Spironolactone (Aldactone) 25 mg PO BID [facility] Last Admin: 09/16/18 18:19 Dose: 25 mg Verapamil HCl (Calan Tab) 40 mg PO TID [facility] Last Admin: 09/16/18 18:22 Dose: 40 mg Verapamil HCl (Verapamil Inj) 2.5 mg IVP Q6H PRN PRN Reason: for heart rate >130 - Labs Labs: 09/17/18 06:00 09/17/18 06:00 PT 16.1 SECONDS (9.4-12.5) H 09/16/18 09:20 INR 1.39 09/16/18 09:20 APTT 28.4 Seconds (25.1-36.5) 09/16/18 09:20 - Constitutional Appears: Non-toxic, No Acute Distress - Head Exam Head Exam: NORMAL INSPECTION, NORMOCEPHALIC - Eye Exam Eye Exam: Normal appearance Pupil Exam: NORMAL ACCOMODATION - ENT Exam ENT Exam: Mucous Membranes Moist, Normal Exam - Respiratory Exam Respiratory Exam: Decreased Breath Sounds, NORMAL BREATHING PATTERN - Cardiovascular Exam Cardiovascular Exam: Irregular Rhythm, +S1, +S2 Additional comments: Telemetry Atrial fibrillation 100's - GI/Abdominal Exam GI & Abdominal Exam: Distended, Soft, Normal Bowel Sounds - Exam Exam: Scrotal Swelling - Extremities Exam Extremities Exam: Full ROM, Pedal Edema Additional comments: 2-3+ pedal edema - Neurological Exam Neurological Exam: Alert, Awake, Oriented x3 - Psychiatric Exam Psychiatric exam: Normal Affect, Normal Mood - Skin Skin Exam: Dry, Normal Color, Warm Assessment and Plan - Assessment and Plan (Free Text) Assessment: A 78 year old male who was sent to the ER by PMD due to increasing leg swelling for the past 2 months. Current alcohol drinker of 4-5 beers per day. He has been drinking since he was 9 years old. Also complained of chest discomfort worsening for the past few days. History of alcoholic liver cirrhosis, hypertension, BPH. EKG showed atrial fibrillation.New onset atrial fibrillation, Cardizem drip started. Congestive heart failure,systolic dysfunction,secondary to alcoholic liver cirrhosis. On Primacor drip. CT of chest positive for moderate right pleural effusion, status post right thoracenthesis (Ultrasound guided). Plan: Status post ultrasound guided right pleural thoracenthesis done by Dr. Dozier About 850 cc fluid aspirated. Telemetry Atrial fibrillation, controlled rate 100's Cardizem drip discontinued and started on Verapamil 40 mg TID Controlled blood pressure ECHO done-will follow up results Continue Primacor drip Continue to diurese Strict I&O Denies shortness of breath Alcohol withdrawal precaution On ASA 81 mg daily,Coreg 3.125 mg BID, Lovenox 90 mg every 12 hours Lasix 40 mg BID,Zestril 2.5 mg daily, Zaroxylyn 5 mg daily,Aldactone 25 mg BID Verapamil 40 mg TID Continue IV antibiotics as ordered Continue current treatment Continue current medications Chart reviewed Will follow up Plan and treatment discussed with Dr. Moore
--- NOTE | 2018-09-17 10:07 | CT ---
Date of service: 09/16/2018 PROCEDURE: CT Chest without contrast HISTORY: worsening R pleural effusion COMPARISON: CT abdomen 09/16/2018 TECHNIQUE: Contiguous axial images were obtained through the chest without intravenous contrast enhancement. Sagittal and coronal reconstructions were performed. Radiation dose: Total exam DLP = 771.84 mGy-cm. This CT exam was performed using one or more of the following dose reduction techniques: Automated exposure control, adjustment of the mA and/or kV according to patient size, and/or use of iterative reconstruction technique. FINDINGS: LUNGS: There is a moderate size right effusion and a small left effusion. There is a small amount of consolidation adjacent to the right effusion. MEDIASTINUM: Unremarkable thoracic aorta. No aneurysm. Normal sized heart. Main pulmonary artery unremarkable. No vascular congestion. No lymphadenopathy. Aortic calcification PLEURA: No pleural fluid. No pneumothorax. BONES: No fracture. No destructive lesion. UPPER ABDOMEN: Grossly unremarkable. OTHER FINDINGS: None. IMPRESSION: There is a moderate size right effusion and a small left effusion. There is a small amount of consolidation adjacent to the right effusion.
--- NOTE | 2018-09-17 11:32 | CP.PCM.PN ---
Addendum entered and electronically signed by Mitch Reinoso DO 09/18/18 12:41: Problem number 4 "gross hematuria" should read dark urine. Clarified with patient that he did not see blood, only dark urine. UA x 2 was negative for blood. Original Note: <Mitch Reinoso - Last Filed: 09/17/18 13:01> Subjective - Date & Time of Evaluation Date of Evaluation: 09/17/18 Time of Evaluation: 09:30 - Subjective Subjective: Mitch Reinoso DO, PGY-1 Hospitalist Progress Note for Dr. Barraza Patient was seen and examined at bedside this AM. He states he feels better this AM. He feels less swollen and short of breath. He continues to deny fever/chills, CP, SOB, dyspnea on exertion, or peripheral numbness/tingling. Objective - Vital Signs/Intake and Output Vital Signs (last 24 hours): Temp Pulse Resp BP Pulse Ox 97.5 F L 108 H 20 129/81 91 L 09/17/18 06:00 09/17/18 06:00 09/17/18 06:00 09/17/18 06:00 09/17/18 06:00 Intake and Output: 09/17/18 09/17/18 06:59 18:59 Intake Total 245 Output Total 0 Balance -1805 - Medications Medications: Current Medications Aspirin (Aspirin Chewable) 81 mg PO DAILY [facility] Last Admin: 09/16/18 15:05 Dose: 81 mg Carvedilol (Coreg) 3.125 mg PO BID [facility] Last Admin: 09/16/18 18:20 Dose: 3.125 mg Enoxaparin Sodium (Lovenox) 90 mg SC Q12 [facility]; Protocol Last Admin: 09/16/18 22:18 Dose: 90 mg Furosemide (Lasix) 40 mg IVP 0600,1800 [facility] Last Admin: 09/17/18 05:39 Dose: 40 mg Ceftriaxone Sodium (Rocephin 1 Gram Ivpb) 1 gm in 100 mls @ 100 mls/hr IVPB D AILY [facility]; Protocol Azithromycin (Zithromax 500mg In Ns) 500 mg in 250 mls @ 167 mls/hr IVPB DAILY [facility]; Protocol Milrinone Lactate/Dextrose (Primacor 20mg/100ml D5w) 100 mls @ 10.869 mls/hr IV .Q9H13M PRN; Protocol PRN Reason: TITRATE PER MD ORDER Last Admin: 09/17/18 02:32 Dose: 0.375 mcg/kg/min, 10.869 mls/hr Lisinopril (Zestril) 2.5 mg PO DAILY [facility] Lorazepam (Ativan) 2 mg IVP Q6H PRN; Protocol PRN Reason: Symptoms of alcohol withdrawl Metolazone (Zaroxolyn) 5 mg PO DAILY [facility] Stop: 09/20/18 23:59 Pantoprazole Sodium (Protonix Ec Tab) 40 mg PO 0600 [facility] Last Admin: 09/17/18 05:40 Dose: 40 mg Spironolactone (Aldactone) 25 mg PO BID [facility] Last Admin: 09/16/18 18:19 Dose: 25 mg Verapamil HCl (Calan Tab) 40 mg PO TID [facility] Last Admin: 09/16/18 18:22 Dose: 40 mg Verapamil HCl (Verapamil Inj) 2.5 mg IVP Q6H PRN PRN Reason: for heart rate >130 - Labs Labs: 09/17/18 06:00 09/17/18 06:00 PT 16.1 SECONDS (9.4-12.5) H 09/16/18 09:20 INR 1.39 09/16/18 09:20 APTT 28.4 Seconds (25.1-36.5) 09/16/18 09:20 - Constitutional Appears: Non-toxic, No Acute Distress - Head Exam Head Exam: ATRAUMATIC, NORMOCEPHALIC - Eye Exam Eye Exam: EOMI, PERRL, Scleral icterus - ENT Exam ENT Exam: Mucous Membranes Moist - Neck Exam Neck Exam: Full ROM, Normal Inspection. absent: Tenderness, Thyromegaly - Respiratory Exam Respiratory Exam: Decreased Breath Sounds (slight decreased breath sounds bases b/l), NORMAL BREATHING PATTERN. absent: Accessory Muscle Use, Rales, Rhonchi, Wheezes, Respiratory Distress - Cardiovascular Exam Cardiovascular Exam: REGULAR RHYTHM, RRR, +S1, +S2. absent: Gallop, Rubs, Murmur - GI/Abdominal Exam GI & Abdominal Exam: Soft, Normal Bowel Sounds. absent: Guarding, Tenderness - Extremities Exam Extremities Exam: Normal Capillary Refill, Pedal Edema. absent: Calf Ten derness, Tenderness Additional comments: 2+ pitting edema b/l improved from yesterday. Hyperpigmented, erythematous patches c/w venous stasis dermatitis b/l. A larger area of erythema surrounding a healing laceration present on LLE. May represent an area of cellulitis. - Back Exam Back Exam: NORMAL INSPECTION - Neurological Exam Neurological Exam: Alert, Awake, Oriented x3 - Psychiatric Exam Psychiatric exam: Normal Affect, Normal Mood - Skin Skin Exam: Dry, Intact, Warm Additional comments: appears diffusely jaundiced Assessment and Plan - Assessment and Plan (Free Text) Assessment: 78 yo M with PMH of HTN, alcoholic liver cirrhosis, angina (prior normal stress test) presents with worsening LE edema, in AFib, has chest discomfort, orthopnea, PND, b/l pleural effusions, and gross hematuria. Plan: 1. Acute liver dysfunction Likely 2/2 alcoholic hepatitis. May also have component of cirrhosis from chronic alcohol abuse. Patient appears less jaundiced today No sign of significant ascites at this time Continue lasix 40 q12h GI consulted, recs appreciated 2. B/l Pleural Effusions Likely 2/2 component of both liver dysfunction and CHF exacerbation Thoracentesis completed yesterday Cytology, LDH, protein sent. Called [facility] lab to verify receipt. Test will take 2-3 days to complete. LE Doppler negative for DVT Continue therapeutic lovenox per cardiology recs On empiric rocephin, zithromax for SBP ppx, f/u procal 3. New onset AFib May be 2/2 worsening alcohol induced cardiomyopathy Echo completed preliminary read with EF of 30%, official read pending Per cardiology, ok to d/c cardizem drip and start on PO verapamil Rate and rhythm controlled so far on PO verapamil Continue lovenox Also start coreg, aldactone, digoxin, milrinone F/u further cardiology recs Cardiology consulted, recs appreciated 4. Gross hematuria Patient states he has noticed blood in his urine for the past week UA x 2 negative for blood Patient states he has history of BPH and has seen urologist in the past On empiric rocephin, zithromax for SBP ppx Consider urology and/or ID consult depending on results of UA, cx 5. Abdominal bloating On protonix for ppx Consider adding malox as needed DVT/GI PPX: Lovenox (therapeutic for AFib, f/u further cardiology recs), SCD, protonix Full Code HHD Monitor on telemetry Case and plan reviewed and discussed with my attending Dr. Christi Reinoso, IM Resident PGY-1 Pager: [phone] <Cathi Barraza - Last Filed: 09/18/18 13:38> Objective - Vital Signs/Intake and Output Vital Signs (last 24 hours): Temp Pulse Resp BP Pulse Ox 98.3 F 123 H 20 149/63 96 09/18/18 06:00 09/18/18 11:05 09/18/18 06:00 09/18/18 11:05 09/18/18 06:00 Intake and Output: 09/18/18 09/18/18 06:59 18:59 Intake Total 531 Output Total 650 Balance -119 - Medications Medications: Current Medications Aspirin (Aspirin Chewable) 81 mg PO DAILY [facility] Last Admin: 09/18/18 11:05 Dose: 81 mg Atorvastatin Calcium (Lipitor) 10 mg PO DIN [facility] Carvedilol (Coreg) 3.125 mg PO BID [facility] Last Admin: 09/18/18 11:05 Dose: 3.125 mg Enoxaparin Sodium (Lovenox) 90 mg SC Q12 [facility]; Protocol Last Admin: 09/18/18 11:06 Dose: 90 mg Furosemide (Lasix) 40 mg IVP 0600,1800 [facility] Last Admin: 09/18/18 05:50 Dose: Not Given Ceftriaxone Sodium (Rocephin 1 Gram Ivpb) 1 gm in 100 mls @ 100 mls/hr IVPB DAILY [facility]; Protocol Last Admin: 09/18/18 11:06 Dose: 100 mls/hr Azithromycin (Zithromax 500mg In Ns) 500 mg in 250 mls @ 167 mls/hr IVPB DAILY [facility]; Protocol Last Admin: 09/18/18 11:07 Dose: 167 mls/hr Milrinone Lactate/Dextrose (Primacor 20mg/100ml D5w) 100 mls @ 10.869 mls/hr IV .Q9H13M PRN; Protocol PRN Reason: TITRATE PER MD ORDER Last Admin: 09/18/18 02:25 Dose: 0.375 mcg/kg/min, 10.869 mls/hr Magnesium Sulfate (Magnesium Sulfate 2 Gm/50 Ml Water) 2 gm in 50 mls @ 50 mls/hr IVPB ONCE ONE Stop: 09/18/18 14:26 Lisinopril (Zestril) 2.5 mg PO DAILY [facility] Last Admin: 09/18/18 11:05 Dose: 2.5 mg Lorazepam (Ativan) 2 mg IVP Q6H PRN; Protocol PRN Reason: Symptoms of alcohol withdrawl Metolazone (Zaroxolyn) 5 mg PO DAILY [facility] Stop: 09/20/18 23:59 Last Admin: 09/18/18 11:05 Dose: 5 mg Pantoprazole Sodium (Protonix Ec Tab) 40 mg PO 0600 [facility] Last Admin: 09/18/18 05:50 Dose: 40 mg Spironolactone (Aldactone) 25 mg PO BID [facility] Last Admin: 09/18/18 11:05 Dose: 25 mg Verapamil HCl (Calan Tab) 40 mg PO TID [facility] Last Admin: 09/18/18 11:04 Dose: 40 mg Verapamil HCl (Verapamil Inj) 2.5 mg IVP Q6H PRN PRN Reason: for heart rate >130 Last Admin: 09/18/18 08:47 Dose: 2.5 mg - Labs Labs: 09/18/18 06:00 09/18/18 06:00 PT 16.1 SECONDS (9.4-12.5) H 09/16/18 09:20 INR 1.39 09/16/18 09:20 APTT 28.4 Seconds (25.1-36.5) 09/16/18 09:20 Attending/Attestation - Attestation I have personally seen and examined this patient.: Yes I have fully participated in the care of the patient.: Yes I have reviewed all pertinent clinical information, including history, physical exam and plan: Yes Notes (Text): 09/18/18 13:31 Attending note; Patient seen and examined with resident. Patient is alert and awake. Leg swelling is improving. Shortness of breath improved significantly. Urine output increased. Patient is a 78 year old male with PMH of HTN, alcohol abuse, intermittent angina (stress test in 2016 was normal), BPH admitted with bilateral lower extr emity swelling worsening over the past two months. Patient is also complaining of some exertional dyspnea. 1. Exertional dyspnea and bilateral lower extremity swelling. Secondary to severe cardiomyopathy. Ejection fraction of 25-30%. Patient is started on milrinone drip by cardiology. Urine output is increasing. Respiratory distress is improving. on IV Lasix. Lower extremity Doppler is negative DVT. Cardiology evaluation appreciated. Continue aspirin, Coreg, lisinopril, metolazone, Lasix, Aldactone and Lipitor. 2. New-onset A. fib; currently on verapamil, Started on therapeutic dose Lovenox . Currently rate controlled. 3. Chronic alcohol abuse. Complete alcohol cessation is strongly recommended. Currently not in alcohol withdrawal. Ativan when necessary ordered. 4. Elevated LFTs and mild ascites; secondary to alcohol abuse. Monitor closely. 5. Bilateral pleural effusion; mostly secondary to CHF. Pulmonary evaluation appreciated Status post thoracentesis. Significantly improved respiratory status. Denies any fevers, chills. 6. Dark urine; possibly concentrated urine.UA is normal. Physical therapy evaluation requested. Upon discharge the patient will follow up with PMD .
[2018-09-17] MEDS: Azithromycin 500MG/NS 250ml 500 MG/250 ML BAG IVPB SCH (12:07)
[2018-09-17] MEDS: Enoxaparin 100 mg Syringe SC SCH ×2 (12:10→22:21)
[2018-09-17] MEDS: metOLazone 5 MG TAB PO SCH (12:10)
[2018-09-17] MEDS: cefTRIAXone 1 gm 1 GM/100 ML BAG IVPB SCH (12:10)
--- NOTE | 2018-09-17 12:53 | CP.PCM.CON ---
<Branden Evans - Last Filed: 09/17/18 12:54> History of Present Illness - History of Present Illness History of Present Illness: PGY-4 GI Fellow Consult Note Pt is a 78 yo Hisp Male with h/o HTN, EtOH cirrhosis (recent dx it seems as pt not aware upon interview), BPH presenting with complaint of worsening LE edema. He states over the last few weeks he has had progressive bilateral LE edema. He also reports intermittent CP as well as PND, orthopnea and dry cough. He denies any N/V, abd pain and reports "normal" BMs. Reports daily EtOH consumption since 9 years old. In the ED, he was found to be in volume overload as well was new Afib with RVR. 12 point ROS negative other than stated above MHx: HTN, EtOH liver cirrhosis, angina (prior normal stress test), BPH SurgHx: hand surgery many years ago Meds: Reviewed Fam Hx: Denied GI problems Soc Hx: admits to drinking about 4-5 beers or more daily since age 9. Denies current or prior tobacco use. Denies other drug use. 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 ASCITES,SCROTAL EDEMA - MUSCULOSKELETAL/RHEUMATOLOGICAL Hx Arthritis: Yes - GASTROINTESTINAL Hx Gastrointestinal Disorders: Yes Hx Liver Failure: Yes (CIRRHOSIS OF LIVER.) - GENITOURINARY/GYNECOLOGICAL Hx Genitourinary Disorders: No - PSYCHIATRIC Hx Substance Use: No - SURGICAL HISTORY Hx Cardiac Catheterization: No Hx Coronary Artery Bypass Graft: No - ANESTHESIA Hx Anesthesia Reactions: No Meds Allergies/Adverse Reactions: Allergies Allergy/AdvReac Type Severity Reaction Status Date / Time No Known Allergies Allergy Verified 09/16/18 15:21 - Medications Medications: Current Medications Aspirin (Aspirin Chewable) 81 mg PO DAILY [facility] Last Admin: 09/17/18 12:07 Dose: 81 mg Carvedilol (Coreg) 3.125 mg PO BID [facility] Last Admin: 09/17/18 12:08 Dose: 3.125 mg Enoxaparin Sodium (Lovenox) 90 mg SC Q12 [facility]; Protocol Last Admin: 09/17/18 12:10 Dose: 90 mg Furosemide (Lasix) 40 mg IVP 0600,1800 [facility] Last Admin: 09/17/18 05:39 Dose: 40 mg Ceftriaxone Sodium (Rocephin 1 Gram Ivpb) 1 gm in 100 mls @ 100 mls/hr IVPB DAILY [facility]; Protocol Last Admin: 09/17/18 12:10 Dose: 100 mls/hr Azithromycin (Zithromax 500mg In Ns) 500 mg in 250 mls @ 167 mls/hr IVPB DAILY [facility]; Protocol Last Admin: 09/17/18 12:07 Dose: 167 mls/hr Milrinone Lactate/Dextrose (Primacor 20mg/100ml D5w) 100 mls @ 10.869 mls/hr IV .Q9H13M PRN; Protocol PRN Reason: TITRATE PER MD ORDER Last Admin: 09/17/18 02:32 Dose: 0.375 mcg/kg/min, 10.869 mls/hr Lisinopril (Zestril) 2.5 mg PO DAILY [facility] Last Admin: 09/17/18 12:07 Dose: 2.5 mg Lorazepam (Ativan) 2 mg IVP Q6H PRN; Protocol PRN Reason: Symptoms of alcohol withdrawl Metolazone (Zaroxolyn) 5 mg PO DAILY [facility] Stop: 09/20/18 23:59 Last Admin: 09/17/18 12:10 Dose: 5 mg Pantoprazole Sodium (Protonix Ec Tab) 40 mg PO 0600 [facility] Last Admin: 09/17/18 05:40 Dose: 40 mg Spironolactone (Aldactone) 25 mg PO BID [facility] Last Admin: 09/17/18 12:07 Dose: 25 mg Verapamil HCl (Calan Tab) 40 mg PO TID [facility] Last Admin: 09/17/18 12:10 Dose: 40 mg Verapamil HCl (Verapamil Inj) 2.5 mg IVP Q6H PRN PRN Reason: for heart rate >130 Physical Exam - Constitutional Appears: Well, No Acute Distress - Head Exam Head Exam: ATRAUMATIC, NORMAL INSPECTION - Eye Exam Eye Exam: EOMI. absent: Conjunctival injection, Scleral icterus - ENT Exam ENT Exam: Mucous Membranes Moist, Normal External Ear Exam. absent: Mucous Membranes Dry - Respiratory Exam Respiratory Exam: NORMAL BREATHING PATTERN. absent: Accessory Muscle Use, Respiratory Distress - Cardiovascular Exam Cardiovascular Exam: REGULAR RHYTHM, RRR - GI/Abdominal Exam GI & Abdominal Exam: Normal Bowel Sounds, Soft. absent: Bruit, Diminished Bowel Sounds, Distended, Firm, Guarding, Hernia, Organomegaly, Pulsatile Mass, Rigid, Tenderness - Rectal Exam Rectal Exam: Deferred - Extremities Exam Additional comments: +2 pitting bilateral LE edema - Neurological Exam Neurological exam: Alert, CN II-XII Intact Additional comments: no asterixis - Psychiatric Exam Psychiatric exam: Normal Affect, Normal Mood - Skin Skin Exam: Normal Color, Warm Results - Vital Signs Recent Vital Signs: Last Vital Signs Temp 97.1 F L 09/17/18 12:00 Pulse 108 H 09/17/18 12:07 Resp 20 09/17/18 12:00 BP 90/58 L 09/17/18 12:00 Pulse Ox 91 L 09/17/18 06:00 - Labs Result Diagrams: 09/17/18 06:00 09/17/18 06:00 Labs: Laboratory Results - last 24 hr 09/16/18 09/16/18 09/16/18 13:20 17:00 17:00 WBC RBC Hgb Hct MCV MCH MCHC RDW Plt Count MPV Gran % Lymph % (Auto) Hodgeman % (Auto) Eos % (Auto) Baso % (Auto) Gran # Lymph # (Auto) Hodgeman # (Auto) Eos # (Auto) Baso # (Auto) pO2 33 VBG pH 7.29 L VBG pCO2 56.0 VBG HCO3 26.9 VBG Total CO2 28.6 H VBG O2 Sat (Calc) 63.6 VBG Base Excess -0.7 L VBG Potassium 4.2 Sodium 131.0 L Chloride 95.0 L Glucose 125 H Lactate 2.4 H FiO2 21.0 Potassium Carbon Dioxide Anion Gap BUN Creatinine Est GFR ( Amer) Est GFR (Non-Af Amer) Random Glucose Hemoglobin A1c 6.0 Calcium Phosphorus Magnesium Total Bilirubin AST ALT Alkaline Phosphatase Troponin I 0.04 Total Protein Albumin Globulin Albumin/Globulin Ratio Triglycerides Cholesterol LDL Cholesterol Direct HDL Cholesterol TSH 3rd Generation Venous Blood Potassium 4.2 Urine Color Urine Appearance Urine pH Ur Specific [place] Urine Protein Urine Glucose (UA) Urine Ketones Urine Blood Urine Nitrate Urine Bilirubin Urine Urobilinogen Ur Leukocyte Esterase Fluid Source Fluid Appearance Fluid WBC Fluid RBC Fluid Tot Cell Count Fluid Neutrophils Fluid Lymphocytes Fld Monocyte/Macrophag Fluid Comment Pleural pH 09/16/18 09/16/18 09/16/18 17:00 17:30 18:53 WBC RBC Hgb Hct MCV MCH MCHC RDW Plt Count MPV Gran % Lymph % (Auto) Hod[place]eman % (Auto) Eos % (Auto) Baso % (Auto) Gran # Lymph # (Auto) [place]eman # (Auto) Eos # (Auto) Baso # (Auto) pO2 VBG pH VBG pCO2 VBG HCO3 VBG Total CO2 VBG O2 Sat (Calc) VBG Base Excess VBG Potassium Sodium Chloride Glucose Lactate FiO2 Potassium Carbon Dioxide Anion Gap BUN Creatinine Est GFR ( Amer) Est GFR (Non-Af Amer) Random Glucose Hemoglobin A1c Calcium Phosphorus Magnesium Total Bilirubin AST ALT Alkaline Phosphatase Troponin I Total Protein Albumin Globulin Albumin/Globulin Ratio Triglycerides Cholesterol LDL Cholesterol Direct HDL Cholesterol TSH 3rd Generation 1.17 Venous Blood Potassium Urine Color Yellow Yellow Urine Appearance Clear Clear Urine pH 6.0 5.5 Ur Specific [place] 1.010 <= 1.005 Urine Protein Negative Negative Urine Glucose (UA) Negative Negative Urine Ketones Negative Negative Urine Blood Negative Negative Urine Nitrate Negative Negative Urine Bilirubin Negative Negative Urine Urobilinogen 0.2 0.2 Ur Leukocyte Esterase Negative Negative Fluid Source Fluid Appearance Fluid WBC Fluid RBC Fluid Tot Cell Count Fluid Neutrophils Fluid Lymphocytes Fld Monocyte/Macrophag Fluid Comment Pleural pH 09/16/18 09/16/18 09/16/18 19:20 19:20 21:20 WBC RBC Hgb Hct MCV MCH MCHC RDW Plt Count MPV Gran % Lymph % (Auto) [place]eman % (Auto) Eos % (Auto) Baso % (Auto) Gran # Lymph # (Auto) [place] # (Auto) Eos # (Auto) Baso # (Auto) pO2 VBG pH VBG pCO2 VBG HCO3 VBG Total CO2 VBG O2 Sat (Calc) VBG Base Excess VBG Potassium Sodium Chloride Glucose Lactate FiO2 Potassium Carbon Dioxide Anion Gap BUN Creatinine Est GFR ( Amer) Est GFR (Non-Af Amer) Random Glucose Hemoglobin A1c Calcium Phosphorus Magnesium Total Bilirubin AST ALT Alkaline Phosphatase Troponin I 0.04 Total Protein Albumin Globulin Albumin/Globulin Ratio Triglycerides Cholesterol LDL Cholesterol Direct HDL Cholesterol TSH 3rd Generation Venous Blood Potassium Urine Color Urine Appearance Urine pH Ur Specific [place] Urine Protein Urine Glucose (UA) Urine Ketones Urine Blood Urine Nitrate Urine Bilirubin Urine Urobilinogen Ur Leukocyte Esterase Fluid Source Pleural Fluid Appearance Sl cloudy Fluid WBC 508.0 H Fluid RBC 598.0 H Fluid Tot Cell Count 100 H Fluid Neutrophils 10.8 H Fluid Lymphocytes 89.2 H Fld Monocyte/Macrophag TEST NOT PERFORMED Fluid Comment TEST NOT PERFORMED Pleural pH 7.5 09/17/18 09/17/18 06:00 06:00 WBC 7.6 RBC 4.56 Hgb 13.8 L Hct 41.5 L MCV 91.0 MCH 30.3 MCHC 33.3 RDW 13.0 Plt Count 196 MPV 11.8 H Gran % 71.9 H Lymph % (Auto) 18.9 L Hodgeman % (Auto) 7.0 H Eos % (Auto) 1.7 Baso % (Auto) 0.5 Gran # 5.42 Lymph # (Auto) 1.4 Hodgeman # (Auto) 0.5 Eos # (Auto) 0.1 Baso # (Auto) 0.04 pO2 VBG pH VBG pCO2 VBG HCO3 VBG Total CO2 VBG O2 Sat (Calc) VBG Base Excess VBG Potassium Sodium 134 Chloride 96 L Glucose Lactate FiO2 Potassium 4.6 Carbon Dioxide 31 Anion Gap 12 BUN 19 Creatinine 1.1 Est GFR ( Amer) > 60 Est GFR (Non-Af Amer) > 60 Random Glucose 95 Hemoglobin A1c Calcium 8.6 Phosphorus 4.1 Magnesium 1.8 Total Bilirubin 1.9 H AST 53 ALT 61 H Alkaline Phosphatase 119 Troponin I Total Protein 5.6 L Albumin 3.0 Globulin 2.6 Albumin/Globulin Ratio 1.2 Triglycerides 47 Cholesterol 119 L LDL Cholesterol Direct 80 HDL Cholesterol 36 TSH 3rd Generation Venous Blood Potassium Urine Color Urine Appearance Urine pH Ur Specific [place] Urine Protein Urine Glucose (UA) Urine Ketones Urine Blood Urine Nitrate Urine Bilirubin Urine Urobilinogen Ur Leukocyte Esterase Fluid Source Fluid Appearance Fluid WBC Fluid RBC Fluid Tot Cell Count Fluid Neutrophils Fluid Lymphocytes Fld Monocyte/Macrophag Fluid Comment Pleural pH Assessment & Plan - Assessment and Plan (Free Text) Assessment: 78 yo Hisp Male with HTN, EtOH Cirrhosis presenting with LE edema. # LE edema and Volume Overload: Suspect more related to decompensated cardiac with due to Afib with RVR and possible new CHF with pleural effusions. Also possible some cirrhosis/portal HTN component, but ascites minimal on imaging; therefore less likely to be contributing. # EtOH Cirrhosis: MELD-Na 20 on admission. Ongoing EtOH abuse. - Ascites: Minimal. Diuretics for CHF should suffice. Low Na diet. Would benefit from paracentesis in future to eval SAAG and total protein. - EV: Needs outpatient EGD - HCC: None apparent on admission CT, though not triple phase. Check AFP - HE: None apparent at this time Plan: - Treatment of decompensated cardiac disease per primary and cardiology - Low Na diet - Outpatient f/u with GI for EGD for variceal screening, para - Screen for viral hepatitis, vaccinate if not immune - Check AFP Thank you for the consult. Will sign off. Please call if questions. Pt seen and examined with Dr. Leigh. See attestation for further recs/changes. <Balwinder Leigh - Last Filed: 09/17/18 16:38> Meds - Medications Medications: Current Medications Aspirin (Aspirin Chewable) 81 mg PO DAILY [facility] Last Admin: 09/17/18 12:07 Dose: 81 mg Carvedilol (Coreg) 3.125 mg PO BID [facility] Last Admin: 09/17/18 12:08 Dose: 3.125 mg Enoxaparin Sodium (Lovenox) 90 mg SC Q12 [facility]; Protocol Last Admin: 09/17/18 12:10 Dose: 90 mg Furosemide (Lasix) 40 mg IVP 0600,1800 [facility] Last Admin: 09/17/18 05:39 Dose: 40 mg Ceftriaxone Sodium (Rocephin 1 Gram Ivpb) 1 gm in 100 mls @ 100 mls/hr IVPB DAILY [facility]; Protocol Last Admin: 09/17/18 12:10 Dose: 100 mls/hr Azithromycin (Zithromax 500mg In Ns) 500 mg in 250 mls @ 167 mls/hr IVPB DAILY [facility]; Protocol Last Admin: 09/17/18 12:07 Dose: 167 mls/hr Milrinone Lactate/Dextrose (Primacor 20mg/100ml D5w) 100 mls @ 10.869 mls/hr IV .Q9H13M PRN; Protocol PRN Reason: TITRATE PER MD ORDER Last Admin: 09/17/18 14:49 Dose: 0.375 mcg/kg/min, 10.869 mls/hr Lisinopril (Zestril) 2.5 mg PO DAILY [facility] Last Admin: 09/17/18 12:07 Dose: 2.5 mg Lorazepam (Ativan) 2 mg IVP Q6H PRN; Protocol PRN Reason: Symptoms of alcohol withdrawl Metolazone (Zaroxolyn) 5 mg PO DAILY [facility] Stop: 09/20/18 23:59 Last Admin: 09/17/18 12:10 Dose: 5 mg Pantoprazole Sodium (Protonix Ec Tab) 40 mg PO 0600 [facility] Last Admin: 09/17/18 05:40 Dose: 40 mg Spironolactone (Aldactone) 25 mg PO BID [facility] Last Admin: 09/17/18 12:07 Dose: 25 mg Verapamil HCl (Calan Tab) 40 mg PO TID [facility] Last Admin: 09/17/18 14:48 Dose: 40 mg Verapamil HCl (Verapamil Inj) 2.5 mg IVP Q6H PRN PRN Reason: for heart rate >130 Results - Vital Signs Recent Vital Signs: Last Vital Signs Temp 97.1 F L 09/17/18 12:00 Pulse 108 H 09/17/18 14:48 Resp 20 09/17/18 12:00 BP 90/58 L 09/17/18 12:00 Pulse Ox 91 L 09/17/18 06:00 - Labs Result Diagrams: 09/17/18 06:00 09/17/18 06:00 Labs: Laboratory Results - last 24 hr 09/16/18 09/16/18 09/16/18 17:00 17:00 17:00 WBC RBC Hgb Hct MCV MCH MCHC RDW Plt Count MPV Gran % Lymph % (Auto) [place] % (Auto) Eos % (Auto) Baso % (Auto) Gran # Lymph # (Auto) [place] # (Auto) Eos # (Auto) Baso # (Auto) Sodium Potassium Chloride Carbon Dioxide Anion Gap BUN Creatinine Est GFR ( Amer) Est GFR (Non-Af Amer) Random Glucose Hemoglobin A1c 6.0 Calcium Phosphorus Magnesium Total Bilirubin AST ALT Alkaline Phosphatase Troponin I 0.04 Total Protein Albumin Globulin Albumin/Globulin Ratio Triglycerides Cholesterol LDL Cholesterol Direct HDL Cholesterol Procalcitonin < 0.05 L TSH 3rd Generation Urine Color Urine Appearance Urine pH Ur Specific [place] Urine Protein Urine Glucose (UA) Urine Ketones Urine Blood Urine Nitrate Urine Bilirubin Urine Urobilinogen Ur Leukocyte Esterase Fluid Source Fluid Appearance Fluid WBC Fluid RBC Fluid Tot Cell Count Fluid Neutrophils Fluid Lymphocytes Fld Monocyte/Macrophag Fluid Comment Pleural pH Hepatitis A IgM Ab Hep Bs Antigen Hep B Core IgM Ab 09/16/18 09/16/18 09/16/18 17:00 17:30 18:53 WBC RBC Hgb Hct MCV MCH MCHC RDW Plt Count MPV Gran % Lymph % (Auto) [place] % (Auto) Eos % (Auto) Baso % (Auto) Gran # Lymph # (Auto) [place] # (Auto) Eos # (Auto) Baso # (Auto) Sodium Potassium Chloride Carbon Dioxide Anion Gap BUN Creatinine Est GFR ( Amer) Est GFR (Non-Af Amer) Random Glucose Hemoglobin A1c Calcium Phosphorus Magnesium Total Bilirubin AST ALT Alkaline Phosphatase Troponin I Total Protein Albumin Globulin Albumin/Globulin Ratio Triglycerides Cholesterol LDL Cholesterol Direct HDL Cholesterol Procalcitonin TSH 3rd Generation 1.17 Urine Color Yellow Yellow Urine Appearance Clear Clear Urine pH 6.0 5.5 Ur Specific [place] 1.010 <= 1.005 Urine Protein Negative Negative Urine Glucose (UA) Negative Negative Urine Ketones Negative Negative Urine Blood Negative Negative Urine Nitrate Negative Negative Urine Bilirubin Negative Negative Urine Urobilinogen 0.2 0.2 Ur Leukocyte Esterase Negative Negative Fluid Source Fluid Appearance Fluid WBC Fluid RBC Fluid Tot Cell Count Fluid Neutrophils Fluid Lymphocytes Fld Monocyte/Macrophag Fluid Comment Pleural pH Hepatitis A IgM Ab Hep Bs Antigen Hep B Core IgM Ab 09/16/18 09/16/18 09/16/18 19:20 19:20 21:20 WBC RBC Hgb Hct MCV MCH MCHC RDW Plt Count MPV Gran % Lymph % (Auto) [place] % (Auto) Eos % (Auto) Baso % (Auto) Gran # Lymph # (Auto) [place] # (Auto) Eos # (Auto) Baso # (Auto) Sodium Potassium Chloride Carbon Dioxide Anion Gap BUN Creatinine Est GFR ( Amer) Est GFR (Non-Af Amer) Random Glucose Hemoglobin A1c Calcium Phosphorus Magnesium Total Bilirubin AST ALT Alkaline Phosphatase Troponin I 0.04 Total Protein Albumin Globulin Albumin/Globulin Ratio Triglycerides Cholesterol LDL Cholesterol Direct HDL Cholesterol Procalcitonin TSH 3rd Generation Urine Color Urine Appearance Urine pH Ur Specific [place] Urine Protein Urine Glucose (UA) Urine Ketones Urine Blood Urine Nitrate Urine Bilirubin Urine Urobilinogen Ur Leukocyte Esterase Fluid Source Pleural Fluid Appearance Sl cloudy Fluid WBC 508.0 H Fluid RBC 598.0 H Fluid Tot Cell Count 100 H Fluid Neutrophils 10.8 H Fluid Lymphocytes 89.2 H Fld Monocyte/Macrophag TEST NOT PERFORMED Fluid Comment TEST NOT PERFORMED Pleural pH 7.5 Hepatitis A IgM Ab Hep Bs Antigen Hep B Core IgM Ab 09/17/18 09/17/18 09/17/18 06:00 06:00 06:00 WBC 7.6 RBC 4.56 Hgb 13.8 L Hct 41.5 L MCV 91.0 MCH 30.3 MCHC 33.3 RDW 13.0 Plt Count 196 MPV 11.8 H Gran % 71.9 H Lymph % (Auto) 18.9 L [place]eman % (Auto) 7.0 H Eos % (Auto) 1.7 Baso % (Auto) 0.5 Gran # 5.42 Lymph # (Auto) 1.4 [place]eman # (Auto) 0.5 Eos # (Auto) 0.1 Baso # (Auto) 0.04 Sodium 134 Potassium 4.6 Chloride 96 L Carbon Dioxide 31 Anion Gap 12 BUN 19 Creatinine 1.1 Est GFR ( Amer) > 60 Est GFR (Non-Af Amer) > 60 Random Glucose 95 Hemoglobin A1c Calcium 8.6 Phosphorus 4.1 Magnesium 1.8 Total Bilirubin 1.9 H AST 53 ALT 61 H Alkaline Phosphatase 119 Troponin I Total Protein 5.6 L Albumin 3.0 Globulin 2.6 Albumin/Globulin Ratio 1.2 Triglycerides 47 Cholesterol 119 L LDL Cholesterol Direct 80 HDL Cholesterol 36 Procalcitonin TSH 3rd Generation Urine Color Urine Appearance Urine pH Ur Specific [place] Urine Protein Urine Glucose (UA) Urine Ketones Urine Blood Urine Nitrate Urine Bilirubin Urine Urobilinogen Ur Leukocyte Esterase Fluid Source Fluid Appearance Fluid WBC Fluid RBC Fluid Tot Cell Count Fluid Neutrophils Fluid Lymphocytes Fld Monocyte/Macrophag Fluid Comment Pleural pH Hepatitis A IgM Ab Negative Hep Bs Antigen Negative Hep B Core IgM Ab Negative Attending/Attestation - Attestation I have personally seen and examined this patient.: Yes I have fully participated in the care of the patient.: Yes I have reviewed all pertinent clinical information: Yes Notes (Text): 09/17/18 16:32 I have seen and examined patient with GI fellow. Agree with above documentation with the following additions. In brief, this is a 78 year old male with history of ETOH abuse, BPH who presents to hospital with complaint of progressive dyspnea on exertion over the past 2 days. On arrival to hospital, was found to be in rapid atrial fibrillation with RVR with associated pleural effusion. Imaging revealed hepatic cirrhosis and GI called for further evaluation. He denies abdominal pain, nausea, vomiting, diarrhea, fever/chills, weight loss, rectal bleeding, jaundice, pruritis, or change in bowel habits. He does admit to daily ETOH use over the past several years. No prior endoscopic evaluation. Suspected ETOH/cardiac cirrhosis - admission MELD 20 Atrial fibrillation Pleural effusion s/p thoracentesis - Low sodium diet as tolerated - Abdominal CT reviewed by me showing trace abdominal ascites, + cirrhosis without hepatic lesion - Obtain AFP, viral hepatitis panel - ETOH cessation counseling - Continue with diuretic therapy as per cardiology, monitor electrolytes - Continue to monitor LFTs - Patient would benefit from additional outpatient evaluation including endoscopic workup. No further GI interventions planned at this time, will sign off case. Please reconsult as necessary, thank you.
--- NOTE | 2018-09-17 14:33 | CARD ---
APPROVED REPORT Date of service: 09/17/2018 EXAM: Two-dimensional and M-mode echocardiogram with Doppler and color Doppler. INDICATION Dyspnea 2D DIMENSIONS Left Atrium (2D)4.8 (1.6-4.0cm)IVSd1.1 (0.7-1.1cm) LVDd5.0 (3.9-5.9cm)PWd1.2 (0.7-1.1cm) LVDs4.3 (2.5-4.0cm)FS (%) 14.2 % LVEF (%)30.2 (>50%) M-Mode DIMENSIONS Aortic Root2.90 (2.2-3.7cm)Aortic Cusp Exc.1.70 (1.5-2.0cm) Aortic Valve AoV Peak [id number]/Mariah Peak GR.7mmHg Mitral Valve E/A ratio0.0 TDI E/Lateral E'0.0E/Medial E'0.0 Tricuspid Valve TR Peak [id number] [id number] Peak Gr.23mmHg [id number] LEFT VENTRICLE The left ventricle is normal size. There is mild concentric left ventricular hypertrophy. The systolic function is moderately impaired.EF-25-30% There is moderate global hypokinesis of the left ventricle. pt. was in A fib.so could not be assessed No left ventricle thrombus noted on this study. There is no ventricular septal defect visualized. There is no left ventricular aneurysm. RIGHT VENTRICLE The right ventricle is mildly to moderately dilated. There is normal right ventricular wall thickness. Systolic function is mildly to moderately reduced. ATRIA The left atrium is mildly dilated. The left atrium is moderately dilated. The right atrium is moderately dilated. The interatrial septum is intact with no evidence for an atrial septal defect. AORTIC VALVE The aortic valve is thickened but opens well. Trivial AR There is no aortic valvular stenosis. There is no aortic valvular vegetation. MITRAL VALVE The mitral valve is thickened but opens well. Mitral regurgitation is mild to moderate. There is no mitral valve stenosis. There is no evidence of mitral valve prolapse. TRICUSPID VALVE The tricuspid valve leaflets are thickened , but open well. There is mild tricuspid regurgitation.RVSP-33 mmof hg. There is no tricuspid valve stenosis. There is no tricuspid valve prolapse or vegetation. PULMONIC VALVE The pulmonic valve is borderline thickened. There is trace pulmonic valvular regurgitation. There is no pulmonic valvular stenosis. GREAT VESSELS The aortic root is normal in size. The ascending aorta is normal in size. The pulmonary artery is normal. The IVC is normal in size and collapses >50% with inspiration. PERICARDIAL EFFUSION There is no pleural effusion. Trivial PE <Conclusion> The left ventricle is normal size. There is mild concentric left ventricular hypertrophy. The systolic function is moderately impaired.EF-25-30% Trivial AR Mitral regurgitation is mild to moderate. There is mild tricuspid regurgitation.RVSP-33 mmof hg. There is trace pulmonic valvular regurgitation. The IVC is normal in size and collapses >50% with inspiration. Trivial PE No Vegetation or thrombus noted.
--- NOTE | 2018-09-17 14:37 | IP.NPCORE ---
Heart Failure Core Measure - Heart Failure Left Ventricular Function to be assessed after discharge: Yes JANETTE Inhibitor Prescribed: Yes Beta-Ethan Prescribed: Carvedilol Angiotensin II Receptor Ethan Prescribed: No Contraindication/Reason for not providing: on JANETTE AnticoagulationTherapy for Atrial Fibrillation/Atrialflutter: Yes Aldosterone Antagonist Prescribed: Yes Hydralazine Nitrate Prescribed: No Contraindication/Reason for not providing: n/a Implantable Cardioverter Defibrillator Therapy: No Contraindication/Reason for not providing: non compliant Cardiac Resynchronization Therapy Prescribed: Yes - Follow up Will be discharged to: Home Follow Up Date (must be within 7 days from discharge): 09/25/18 Follow Up Time: 10:00
[2018-09-17 16:22] LABS: HEPATITIS B SURFACE AG Negative (NEGATIVE)
[2018-09-17 16:28] LABS: HEPATITIS A IGM NEGATIVE (NEGATIVE); HEPATITIS B CORE AB NEGATIVE (NEGATIVE)
[2018-09-17 16:40] LABS: HEPATITIS C ANTIBODY NEGATIVE (NEGATIVE)
--- NOTE | 2018-09-17 17:54 | PN ---
DATE: 09/17/2018 SUBJECTIVE: The patient is seen and examined at bedside. He is comfortable. He sits in the chair. He talks full sentences. He is not in respiratory or otherwise distress. PHYSICAL EXAMINATION: VITAL SIGNS: Temperature 97.1, heart rate 72, blood pressure 90/58, respiratory rate 20, oxygen saturation 92% on room air. HEENT: Head and neck atraumatic. LUNGS: A little bit decreased breath sounds on the right side. Normal breath sounds and clear to auscultation on the left side. HEART: Irregular rate and rhythm. S1 and S2 distant. ABDOMEN: Soft, nontender, nondistended. MUSCULOSKELETAL: 2+ bilateral pedal and ankle edema. NEUROLOGIC: The patient moves all extremities spontaneously. SKIN: Moist. PSYCHIATRY: The patient is alert, awake and oriented x3. LABORATORY DATA: WBC 7.6, hemoglobin 13.8, platelet count 196. Sodium 134, potassium 4.6, chloride 96, carbon dioxide 31, BUN 19, creatinine 1.1 down from 1.2, glucose 95, AST 53, ALT 61, total bilirubin 1.9. Troponin x3 negative. MEDICATIONS: Aspirin, Coreg, Lovenox 90 mg subcu every 12, Lasix 40 mg IV b.i.d., lisinopril, Ativan p.r.n., Zaroxolyn, Protonix, milrinone, ceftriaxone, spironolactone, verapamil, and azithromycin. ASSESSMENT AND PLAN: This is a 78-year-old gentleman who initially presented with some bloating, shortness of breath, atrial fibrillation with rapid ventricular rate. Concern for cardiomyopathy whether ischemic or alcohol related was raised. Echocardiogram was done. The patient was found to have right-sided pleural effusion, which was tapped and preliminary review of labs suggesting transudative effusion. Combination of above findings suggest congestive heart failure exacerbation in the setting of atrial fibrillation with rapid ventricular rate and potentially ischemic or nonischemic cardiomyopathy, which has been treated with conservative fluid management/diuresis with Lasix, heart rate control (the patient is on verapamil and metoprolol), therapeutic anticoagulation with Lovenox and afterload reduction with lisinopril. The patient is afebrile and does not have leukocytosis, very comfortable and denies cough with sputum production. I have low suspicion for infectious etiology of his initial clinical decompensation. If septic workup returns negative, I would de-escalate antibiotic therapy rather fast. We will continue to target euvolemia, euglycemia, normothermia and saturation more than 100%. We will continue with deep vein thrombosis and gastrointestinal prophylaxis. Official report of echocardiogram is pending. Felice Conde MD MTDAnna
[2018-09-18] MEDS: Milrinone 20mg/100ml D5W 100 ML IV PRN ×2 (02:25→21:35)
[2018-09-18] MEDS: Pantoprazole 40 mg EC Tab PO SCH (05:50)
[2018-09-18 07:11] LABS: BASO # 0.03 K/mm3 (0.0-2.0); BASO % 0.5 % (0.0-3.0); EOS # 0.2 (0.0-0.7); EOS % 2.5 % (1.5-5.0); GRAN # 4.24 (1.4-6.5); GRAN % 70.5 % (50.0-68.0); HEMOGLOBIN 13.8 g/dL (14.0-18.0); LYMPH # 1.1 (1.2-3.4); LYMPH % 18.3 % (22.0-35.0); MEAN CELL VOLUME 89.9 fl (80.0-105.0); MEAN CORPUSCULAR HEMOGLOBIN 30.3 pg (25.0-35.0); MEAN CORPUSCULAR HGB CONC 33.7 g/dl (31.0-37.0); MEAN PLATELET VOLUME 11.8 fl (7.0-11.0); MONO # 0.5 (0.1-0.6); MONO % 8.2 % (1.0-6.0); RBC 4.55 10^6/uL (3.5-6.1)
--- NOTE | 2018-09-18 07:50 | CP.PCM.PN ---
<Mitch Reinoso - Last Filed: 09/18/18 13:03> Subjective - Date & Time of Evaluation Date of Evaluation: 09/18/18 Time of Evaluation: 07:40 - Subjective Subjective: Mitch Reinoso DO, PGY-1 Hospitalist Progress Note for Dr. Barraza Patient was seen and examined at bedside this AM. He offers no new complaints th is AM and states his swelling is improving. He also feels less short of breath. He also stated that his dark urine has improved and he has been urinating more. He denies fever/chills, abdominal pain/nausea/vomiting. Objective - Vital Signs/Intake and Output Vital Signs (last 24 hours): Temp Pulse Resp BP Pulse Ox 98.3 F 110 H 20 103/68 96 09/18/18 06:00 09/18/18 06:00 09/18/18 06:00 09/18/18 06:00 09/18/18 06:00 Intake and Output: 09/18/18 09/18/18 06:59 18:59 Intake Total 531 Output Total 650 Balance -119 - Medications Medications: Current Medications Aspirin (Aspirin Chewable) 81 mg PO DAILY [facility] Last Admin: 09/17/18 12:07 Dose: 81 mg Carvedilol (Coreg) 3.125 mg PO BID [facility] Last Admin: 09/17/18 17:41 Dose: 3.125 mg Enoxaparin Sodium (Lovenox) 90 mg SC Q12 [facility]; Protocol Last Admin: 09/17/18 22:21 Dose: 90 mg Furosemide (Lasix) 40 mg IVP 0600,1800 [facility] Last Admin: 09/18/18 05:50 Dose: Not Given Ceftriaxone Sodium (Rocephin 1 Gram Ivpb) 1 gm in 100 mls @ 100 mls/hr IVPB DAILY [facility]; Protocol Last Admin: 09/17/18 12:10 Dose: 100 mls/hr Azithromycin (Zithromax 500mg In Ns) 500 mg in 250 mls @ 167 mls/hr IVPB DAILY [facility]; Protocol Last Admin: 09/17/18 12:07 Dose: 167 mls/hr Milrinone Lactate/Dextrose (Primacor 20mg/100ml D5w) 100 mls @ 10.869 mls/hr IV .Q9H13M PRN; Protocol PRN Reason: TITRATE PER MD ORDER Last Admin: 09/18/18 02:25 Dose: 0.375 mcg/kg/min, 10.869 mls/hr Lisinopril (Zestril) 2.5 mg PO DAILY [facility] Last Admin: 09/17/18 12:07 Dose: 2.5 mg Lorazepam (Ativan) 2 mg IVP Q6H PRN; Protocol PRN Reason: Symptoms of alcohol withdrawl Metolazone (Zaroxolyn) 5 mg PO DAILY [facility] Stop: 09/20/18 23:59 Last Admin: 09/17/18 12:10 Dose: 5 mg Pantoprazole Sodium (Protonix Ec Tab) 40 mg PO 0600 [facility] Last Admin: 09/18/18 05:50 Dose: 40 mg Spironolactone (Aldactone) 25 mg PO BID [facility] Last Admin: 09/17/18 17:41 Dose: 25 mg Verapamil HCl (Calan Tab) 40 mg PO TID [facility] Last Admin: 09/17/18 17:41 Dose: 40 mg Verapamil HCl (Verapamil Inj) 2.5 mg IVP Q6H PRN PRN Reason: for heart rate >130 - Labs Labs: 09/18/18 06:00 09/17/18 06:00 PT 16.1 SECONDS (9.4-12.5) H 09/16/18 09:20 INR 1.39 09/16/18 09:20 APTT 28.4 Seconds (25.1-36.5) 09/16/18 09:20 - Constitutional Appears: Non-toxic, No Acute Distress - Head Exam Head Exam: ATRAUMATIC, NORMOCEPHALIC - Eye Exam Eye Exam: EOMI, Normal appearance, PERRL - ENT Exam ENT Exam: Mucous Membranes Moist - Neck Exam Neck Exam: Full ROM, Normal Inspection - Respiratory Exam Respiratory Exam: Clear to Ausculation Bilateral. absent: Accessory Muscle Use, Rales, Rhonchi, Wheezes, Respiratory Distress - Cardiovascular Exam Cardiovascular Exam: REGULAR RHYTHM, RRR, +S1, +S2. absent: Gallop, Rubs, Murmur - GI/Abdominal Exam GI & Abdominal Exam: Soft, Normal Bowel Sounds. absent: Guarding, Tenderness - Extremities Exam Extremities Exam: Full ROM, Normal Capillary Refill, Pedal Edema (2+ pitting edema b/l improving from prior exams). absent: Calf Tenderness, Tenderness - Back Exam Back Exam: NORMAL INSPECTION - Neurological Exam Neurological Exam: Alert, Awake, Normal Gait (patient ambulating to bathroom without difficulty), Oriented x3 - Psychiatric Exam Psychiatric exam: Normal Affect, Normal Mood - Skin Skin Exam: Dry, Intact, Warm Assessment and Plan - Assessment and Plan (Free Text) Assessment: 78 yo M with PMH of HTN, alcoholic liver cirrhosis, angina (prior normal stress test) presents with worsening LE edema, in AFib, has chest discomfort, orthopnea, PND, b/l pleural effusions, and dark urine. Plan: 1. CHF Exacerbation with periodic episodes of AFib Likely 2/2 worsening alcohol induced cardiomyopathy Peripheral edema is likely 2/2 to CHF exacerbation primarily Continue lasix 40 IVP q12h Echo completed with EF of 30% Had 2 episodes of AFib overnight Currently on milrinone drip, coreg, therapeutic lovenox, aldactone, verapamil, and metolazone per cardiology recs Per cardiology, plan is for cardiac cath on Friday and continue to monitor on tele over the weekend Cardiology consulted, recs appreciated 2. Acute liver dysfunction Likely 2/2 alcoholic hepatitis. May also have component of cirrhosis from chronic alcohol abuse. Patient appears less jaundiced today AST/ALT downtrending, continue to monitor No sign of significant ascites at this time Continue lasix 40 IVP q12h Per GI recs, patient would benefit from outpatient EGD Will set patient up with GI appointment prior to discharge to follow up 3. B/l Pleural Effusions Likely 2/2 component of both liver dysfunction and CHF exacerbation s/p thoracentesis 2 days ago Pleural fluid pH of 7.5, so low suspicion for infectious etiology Cytology, LDH, protein sent. Called [facility] lab to verify receipt. Test will take 2-3 days to complete. LE Doppler negative for DVT Continue therapeutic lovenox per cardiology recs Blood cx, procal negative to date 4. LLE erythema LLE is slightly erythematous which may be 2/2 cellulitis Will continue rocephin, zithromax but may d/c in next few days 5. Dark Urine Patient states he noticed his urine was dark on admission UA x 2 negative for blood Patient states he has history of BPH and has seen urologist in the past Urine cx negative to date Patient states this has now improved and urine is normal color 6. Hypokalemia Repleted this AM Recheck next AM DVT/GI PPX: Lovenox (therapeutic for AFib, f/u further cardiology recs), SCD, protonix Full Code HHD Monitor on telemetry Case and plan reviewed and discussed with my attending Dr. Christi Reinoso DO IM Resident PGY-1 Pager: [phone] <Cathi Barraza - Last Filed: 09/18/18 13:41> Objective - Vital Signs/Intake and Output Vital Signs (last 24 hours): Temp Pulse Resp BP Pulse Ox 98.3 F 95 H 20 135/82 96 09/18/18 06:00 09/18/18 13:35 09/18/18 06:00 09/18/18 13:35 09/18/18 06:00 Intake and Output: 09/18/18 09/18/18 06:59 18:59 Intake Total 531 Output Total 650 Balance -119 - Medications Medications: Current Medications Aspirin (Aspirin Chewable) 81 mg PO DAILY [facility] Last Admin: 09/18/18 11:05 Dose: 81 mg Atorvastatin Calcium (Lipitor) 10 mg PO DIN [facility] Carvedilol (Coreg) 3.125 mg PO BID [facility] Last Admin: 09/18/18 11:05 Dose: 3.125 mg Enoxaparin Sodium (Lovenox) 90 mg SC Q12 [facility]; Protocol Last Admin: 09/18/18 11:06 Dose: 90 mg Furosemide (Lasix) 40 mg IVP 0600,1800 [facility] Last Admin: 09/18/18 05:50 Dose: Not Given Ceftriaxone Sodium (Rocephin 1 Gram Ivpb) 1 gm in 100 mls @ 100 mls/hr IVPB DAILY [facility]; Protocol Last Admin: 09/18/18 11:06 Dose: 100 mls/hr Azithromycin (Zithromax 500mg In Ns) 500 mg in 250 mls @ 167 mls/hr IVPB DAILY [facility]; Protocol Last Admin: 09/18/18 11:07 Dose: 167 mls/hr Milrinone Lactate/Dextrose (Primacor 20mg/100ml D5w) 100 mls @ 10.869 mls/hr IV .Q9H13M PRN; Protocol PRN Reason: TITRATE PER MD ORDER Last Admin: 09/18/18 02:25 Dose: 0.375 mcg/kg/min, 10.869 mls/hr Magnesium Sulfate (Magnesium Sulfate 2 Gm/50 Ml Water) 2 gm in 50 mls @ 50 mls/hr IVPB ONCE ONE Stop: 09/18/18 14:26 Lisinopril (Zestril) 2.5 mg PO DAILY [facility] Last Admin: 09/18/18 11:05 Dose: 2.5 mg Lorazepam (Ativan) 2 mg IVP Q6H PRN; Protocol PRN Reason: Symptoms of alcohol withdrawl Metolazone (Zaroxolyn) 5 mg PO DAILY [facility] Stop: 09/20/18 23:59 Last Admin: 09/18/18 11:05 Dose: 5 mg Pantoprazole Sodium (Protonix Ec Tab) 40 mg PO 0600 [facility] Last Admin: 09/18/18 05:50 Dose: 40 mg Spironolactone (Aldactone) 25 mg PO BID [facility] Last Admin: 09/18/18 11:05 Dose: 25 mg Verapamil HCl (Calan Tab) 40 mg PO TID [facility] Last Admin: 09/18/18 13:35 Dose: 40 mg Verapamil HCl (Verapamil Inj) 2.5 mg IVP Q6H PRN PRN Reason: for heart rate >130 Last Admin: 09/18/18 08:47 Dose: 2.5 mg - Labs Labs: 09/18/18 06:00 09/18/18 06:00 PT 16.1 SECONDS (9.4-12.5) H 09/16/18 09:20 INR 1.39 09/16/18 09:20 APTT 28.4 Seconds (25.1-36.5) 09/16/18 09:20 Attending/Attestation - Attestation I have personally seen and examined this patient.: Yes I have fully participated in the care of the patient.: Yes I have reviewed all pertinent clinical information, including history, physical exam and plan: Yes Notes (Text): 09/18/18 13:39 Attending note; Patient seen and examined with resident. Patient is alert and awake. Leg swelling is improving. Shortness of breath improved significantly. Patient is a 78 year old male with PMH of HTN, alcohol abuse, intermittent a ngina (stress test in 2016 was normal), BPH admitted with bilateral lower extremity swelling worsening over the past two months. 1. Exertional dyspnea and bilateral lower extremity swelling. severe cardiomyopathy. Ejection fraction of 25-30%. Patient is started on milrinone drip. Urine output is increasing. Respiratory distress is improving. on IV Lasix. Lower extremity Doppler is negative DVT. Cardiology evaluation appreciated. Continue aspirin, Coreg, lisinopril, metolazone, Lasix, Aldactone and Lipitor. 2. New-onset A. fib; currently on verapamil, Started on therapeutic dose Lovenox. Currently rate controlled. Possible cardiac cath early next week. Will follow-up with cardiology. 3. Chronic alcohol abuse. Complete alcohol cessation is strongly recommended. Currently not in alcohol withdrawal. 4. Elevated LFTs and mild ascites; secondary to alcohol abuse. GI evaluation appreciated. 5. Bilateral pleural effusion; mostly secondary to CHF. Pulmonary evaluation appreciated. Status post thoracentesis. Significantly improved respiratory status. Thoracentesis fluid showed transudate. Denies any fevers, chills. Rocephin and Zithromax discontinued. Physical therapy evaluation requested. Upon discharge the patient will follow up with PMD .
[2018-09-18 08:02] LABS: ALB/GLOB RATIO 1.1 (1.1-1.8); ALT/SGPT 52 U/L (7-56); AST/SGOT 47 U/L (17-59); BLOOD UREA NITROGEN 21 mg/dL (7-21); CALCIUM 8.5 mg/dL (8.4-10.5); GFR NON-AFRICAN AMERICAN 58
[2018-09-18] MEDS ORDERED: Potassium Chloride 20 mEq ER Tab PO ONE ×2 (08:45→19:00)
--- NOTE | 2018-09-18 09:50 | PN ---
DATE: 09/17/2018 REASON FOR CONSULTATION AND FOLLOWUP: Cardiac evaluation, admitted with decompensated congestive heart failure, history of alcoholic cirrhosis, and AFib possible new onset. The patient started on Primacor, feels a lot better, having a good diuresis and 2 L negative fluid balance. The patient is able to lay flat on the bed. This note is in addition to the dictated by our nurse practitioner. The patient had echocardiography done that shows ejection fraction 25% to 30%, trivial AR, [id number] mitral regurgitation, mild tricuspid regurgitation, and RV systolic pressure of 33. History of alcoholic liver disease, history of alcohol abuse, used to drink 24 ounces of beer 3 cans everyday plus hard liquor. Admitted with new onset of atrial fibrillation, decompensated congestive heart failure. RECOMMENDATIONS: Started on JANETTE inhibitor, Coreg, and diuretics. We will add on digoxin as well p.o. from today and continue for now. Continue milrinone for aggressive diuresis and monitor H and H. Continue milrinone once the patient stabilizes and able to lay flat, I will consider cardiac catheterization. Discuss with daughter and the patient. Also, the patient has bilateral pleural effusion, moderate size. We will repeat the chest x-ray PA and lateral tomorrow. Overall, the patient is improving, seizures are improving as well as radiologically pleural effusion is decreased significantly. . When the patient stabilizes, consider cardiac catheterization possibly early next week. Thank you Dr. Barraza for providing us the opportunity in taking care of the patient, Jayce Arias. Karan Moore MD
--- NOTE | 2018-09-18 09:55 | RAD ---
Date of service: 09/18/2018 HISTORY: F/U pneumonia and compare COMPARISON: 09/17/2018 TECHNIQUE: Chest PA and lateral FINDINGS: LUNGS: No active pulmonary disease. PLEURA: Small right effusion CARDIOVASCULAR: Minimal aortic calcification Normal cardiac size. No pulmonary vascular congestion. OSSEOUS STRUCTURES: No significant abnormalities. VISUALIZED UPPER ABDOMEN: Normal. OTHER FINDINGS: None. IMPRESSION: Small right pleural effusion
[2018-09-18] MEDS: metOLazone 5 MG TAB PO SCH (11:05)
[2018-09-18] MEDS: Enoxaparin 100 mg Syringe SC SCH ×2 (11:06→22:18)
[2018-09-18] MEDS: cefTRIAXone 1 gm 1 GM/100 ML BAG IVPB SCH (11:06)
[2018-09-18] MEDS: Azithromycin 500MG/NS 250ml 500 MG/250 ML BAG IVPB SCH (11:07)
[2018-09-18] MEDS ORDERED: Magnesium Sulfate 2 gm/50 ml 2 GM/50 ML BAG IVPB ONE (13:27)
--- NOTE | 2018-09-18 16:54 | PN ---
DATE: 09/18/2018 SUBJECTIVE: The patient is seen and examined at bedside. He is comfortable. He is sitting in the chair. He is smiling. He talks full sentences. He is not in respiratory or otherwise distress. PHYSICAL EXAMINATION: VITAL SIGNS: Temperature 97.5, heart rate 103, blood pressure 135/82, respiratory rate 19. ENT: Head and neck atraumatic. LUNGS: Clear to auscultation bilaterally. HEART: Regular rate and rhythm. S1 and S2 normal. ABDOMEN: Soft, nontender and nondistended. MUSCULOSKELETAL: No C/C/E. NEURO: The patient moves all extremities spontaneously. SKIN: Moist. PSYCH: The patient is alert, awake and oriented x3. LABORATORY DATA: WBC 6, hemoglobin 13.8, platelet count 193. Sodium 134, potassium 3.3, chloride 95, BUN 21, creatinine 1.2, glucose 88, AST 47, ALT 52, total bilirubin 1.6. MEDICATIONS: Aspirin, Lipitor, Coreg, Lovenox 90 mg subcu every 12, Lasix 40 mg IV b.i.d., lisinopril, Ativan p.r.n., Zaroxolyn, Protonix, milrinone, spironolactone, verapamil. ASSESSMENT AND PLAN: This is a 78-year-old gentleman with congestive heart failure and left ventricular systolic dysfunction, who presented to [facility] ([facility]) with atrial fibrillation with rapid ventricular response and congestive heart failure exacerbation. At present time, his condition and especially respiratory status substantially improved. I would continue with heart rate control, conservative fluid management/diuresis, afterload reduction and therapeutic anticoagulation. Apparently, the patient is going for cardiac cath on Friday. We will continue to target euvolemia, euglycemia, normothermia and oxygen saturation more than 90%. We will continue with deep venous thrombosis, gastrointestinal prophylaxis. Felice Conde MD
--- NOTE | 2018-09-18 23:27 | PN ---
DATE: 09/18/2018 REASON FOR CONSULTATION AND FOLLOWUP: Cardiac evaluation, admitted with decompensated congestive heart failure, acute on chronic, secondary to possible systolic dysfunction; history of cirrhosis; AFib, new onset. SUBJECTIVE: The patient is on IV Primacor, improved, feels a lot better, having massive diuresis. Yesterday, was 2 L negative and today is 1 L negative fluid balance. PHYSICAL EXAMINATION: VITAL SIGNS: Afebrile, heart rate 109, blood pressure 129/67. HEENT: PERRLA. Extraocular muscles intact. NECK: Supple. No carotid bruit or thyromegaly. CHEST: Clear to auscultation. HEART: S1, S2, regular. ABDOMEN: Soft. EXTREMITIES: Clubbing and cyanosis negative. LABORATORY DATA: WBC 6, hemoglobin 13.8, hematocrit 40.9, platelet count 193. Chemistry shows sodium 134, potassium 3.3, chloride 95, carbon dioxide 32, anion gap of 11, BUN 21, creatinine 1.2. IMPRESSION: This is a 78-year-old male with past medical history significant for heavy alcohol abuse, admitted with acutely decompensated congestive heart failure, new onset of atrial fibrillation, history of paroxysmal nocturnal dyspnea, orthopnea, and dyspnea. The patient had echocardiography done yesterday that revealed ejection fraction 25% to 30%, [id number] mitral regurgitation, mild tricuspid regurgitation, trace pulmonary insufficiency, trace pleural effusion. Acutely decompensated congestive heart failure secondary to systolic dysfunction. Yesterday, patient underwent ultrasound-guided thoracentesis, 850 mL of fluid is aspirated. PLAN: To continue Primacor. Continue diuresis. Repeat chest x-ray to see the improvement. Once the patient is stable to lay flat, we will consider cardiac catheterization, possibly on Friday. Discussed with the family. Repeat chest x-ray shows small pleural effusion. Continue to supplement potassium. Continue Spironolactone. Continue Coreg. Continue angiotensin-converting enzyme inhibitors. Continue IV Primacor. Continue metolazone. We will follow with you. Aggressively supplement potassium as needed. We will start Plavix and keep n.p.o after Friday midnight for possible cardiac catheterization on Friday. Most likely this cardiomyopathy is secondary to alcohol-related disease, but cannot rule out underlying coronary artery disease. We will follow with you. We will hold Lovenox after Friday 11:00 a.m. dose. Thank you, Dr. Barraza, for providing us the opportunity in taking care of patient, Jayce Arias. Karan Moore MD
[2018-09-19] MEDS: Pantoprazole 40 mg EC Tab PO SCH (05:21)
[2018-09-19] MEDS: Milrinone 20mg/100ml D5W 100 ML IV PRN ×2 (06:38→17:57)
[2018-09-19 07:27] LABS: BASO # 0.04 K/mm3 (0.0-2.0); BASO % 0.8 % (0.0-3.0); EOS # 0.1 (0.0-0.7); EOS % 2.5 % (1.5-5.0); GRAN # 3.09 (1.4-6.5); GRAN % 58.3 % (50.0-68.0); HEMOGLOBIN 13.1 g/dL (14.0-18.0); LYMPH # 1.4 (1.2-3.4); LYMPH % 25.5 % (22.0-35.0); MEAN CELL VOLUME 90.7 fl (80.0-105.0); MEAN CORPUSCULAR HEMOGLOBIN 29.6 pg (25.0-35.0); MEAN CORPUSCULAR HGB CONC 32.6 g/dl (31.0-37.0); MEAN PLATELET VOLUME 11.3 fl (7.0-11.0); MONO # 0.7 (0.1-0.6); MONO % 12.9 % (1.0-6.0); RBC 4.43 10^6/uL (3.5-6.1); RED CELL DISTRIBUTION WIDTH 13.1 % (11.5-14.5); WHITE BLOOD COUNT 5.3 10^3/uL (4.5-11.0)
[2018-09-19 07:45] LABS: GLUCOSE PLEURAL FLUID 151 mg/dL; TOTAL PROTEIN PLEURAL FLUID <3.0 g/dL
[2018-09-19 07:52] LABS: ALB/GLOB RATIO 1.1 (1.1-1.8); ALT/SGPT 54 U/L (7-56); AST/SGOT 44 U/L (17-59); BLOOD UREA NITROGEN 18 mg/dL (7-21); CALCIUM 8.4 mg/dL (8.4-10.5); GFR NON-AFRICAN AMERICAN > 60
--- NOTE | 2018-09-19 09:44 | CP.PCM.PN ---
Subjective - Date & Time of Evaluation Date of Evaluation: 09/19/18 Time of Evaluation: 06:50 - Subjective Subjective: Awake, alert, no distress Reason for consultation and follow up: Cardiac evaluation of leg swelling,shortness of breath intermittent chest pain. History of hypertension,alcoholic liver cirrhosis, intermittent angina and BPH. Seen and examined by me and Dr. Moore Objective - Vital Signs/Intake and Output Vital Signs (last 24 hours): Temp Pulse Resp BP Pulse Ox 97.5 F L 100 H 18 105/57 L 97 09/19/18 05:58 09/19/18 06:38 09/19/18 05:58 09/19/18 06:38 09/19/18 05:58 Intake and Output: 09/19/18 09/19/18 06:59 18:59 Intake Total 340 Output Total 950 Balance -610 - Medications Medications: Current Medications Aspirin (Aspirin Chewable) 81 mg PO DAILY [facility] Last Admin: 09/18/18 11:05 Dose: 81 mg Atorvastatin Calcium (Lipitor) 10 mg PO DIN [facility] Last Admin: 09/18/18 16:26 Dose: 10 mg Carvedilol (Coreg) 3.125 mg PO BID [facility] Last Admin: 09/18/18 17:49 Dose: 3.125 mg Clopidogrel Bisulfate (Plavix) 75 mg PO DAILY [facility] Enoxaparin Sodium (Lovenox) 90 mg SC Q12 [facility]; Protocol Stop: 09/20/18 11:00 Last Admin: 09/18/18 22:18 Dose: 90 mg Furosemide (Lasix) 40 mg IVP DAILY [facility] Milrinone Lactate/Dextrose (Primacor 20mg/100ml D5w) 100 mls @ 10.869 mls/hr IV .Q9H13M PRN; Protocol PRN Reason: TITRATE PER MD ORDER Last Admin: 09/19/18 06:38 Dose: 0.375 mcg/kg/min, 10.869 mls/hr Lisinopril (Zestril) 2.5 mg PO DAILY [facility] Last Admin: 09/18/18 11:05 Dose: 2.5 mg Lorazepam (Ativan) 2 mg IVP Q6H PRN; Protocol PRN Reason: Symptoms of alcohol withdrawl Metolazone (Zaroxolyn) 5 mg PO DAILY [facility] Stop: 09/20/18 23:59 Last Admin: 09/18/18 11:05 Dose: 5 mg Pantoprazole Sodium (Protonix Ec Tab) 40 mg PO 0600 [facility] Last Admin: 09/19/18 05:21 Dose: 40 mg Spironolactone (Aldactone) 25 mg PO BID [facility] Last Admin: 09/18/18 17:49 Dose: 25 mg Verapamil HCl (Calan Tab) 40 mg PO TID [facility] Last Admin: 09/18/18 17:48 Dose: 40 mg Verapamil HCl (Verapamil Inj) 2.5 mg IVP Q6H PRN PRN Reason: for heart rate >130 Last Admin: 09/18/18 08:47 Dose: 2.5 mg - Labs Labs: 09/19/18 06:30 09/19/18 06:30 PT 16.1 SECONDS (9.4-12.5) H 09/16/18 09:20 INR 1.39 09/16/18 09:20 APTT 28.4 Seconds (25.1-36.5) 09/16/18 09:20 - Constitutional Appears: Non-toxic, No Acute Distress - Head Exam Head Exam: NORMAL INSPECTION, NORMOCEPHALIC - Eye Exam Eye Exam: Normal appearance Pupil Exam: NORMAL ACCOMODATION - ENT Exam ENT Exam: Mucous Membranes Moist, Normal Exam - Respiratory Exam Respiratory Exam: Decreased Breath Sounds, NORMAL BREATHING PATTERN - Cardiovascular Exam Cardiovascular Exam: Irregular Rhythm, +S1, +S2 Additional comments: telemetry atrial fibrillation 90-100's - GI/Abdominal Exam GI & Abdominal Exam: Soft, Normal Bowel Sounds - Neurological Exam Neurological Exam: Alert, Awake, Oriented x3 - Psychiatric Exam Psychiatric exam: Normal Affect, Normal Mood - Skin Skin Exam: Dry, Normal Color, Warm Assessment and Plan - Assessment and Plan (Free Text) Assessment: A 78 year old male who was sent to the ER by PMD due to increasing leg swelling for the past 2 months. Current alcohol drinker of 4-5 beers per day. He has been drinking since he was 9 years old. Also complained of chest discomfort worsening for the past few days. History of alcoholic liver cirrhosis, hypertension, BPH. EKG showed atrial fibrillation.New onset atrial fibrillation, Cardizem drip started. Congestive heart failure,systolic dysfunction,secondary to alcoholic liver cirrhosis. On Primacor drip. CT of chest positive for moderate right pleural effusion, status post right thoracenthesis (Ultrasound guided) about 850 cc fluid aspirated. diuresing,Echo done- Moderately impaired LV function LVEF 25-30%, mild to moderate mitral regurgitation, mild tricuspid regurgitation RVSP 33 mmHg, For cardiac catheterization on Friday. Symptoms clinically improved. Plan: For cardiac catherization on Friday NPO post midnight Friday Telemetry Atrial fibrillation, controlled rate 90- 100's On Verapamil 40 mg TID Controlled blood pressure Continue Primacor drip Continue to diurese Strict I&O, about 2 liters negative for the past 2 days PRN replenish potassium Denies shortness of breath Alcohol withdrawal precaution On ASA 81 mg daily,Coreg 3.125 mg BID, Lovenox 90 mg every 12 hours Lasix 40 mg BID,Zestril 2.5 mg daily, Zaroxylyn 5 mg daily,Aldactone 25 mg BID Verapamil 40 mg TID Continue IV antibiotics as ordered Continue current treatment Continue current medications Chart reviewed Will follow up Plan and treatment discussed with Dr. Moore
[2018-09-19] MEDS: Enoxaparin 100 mg Syringe SC SCH ×2 (09:51→22:16)
[2018-09-19] MEDS: metOLazone 5 MG TAB PO SCH (09:53)
--- NOTE | 2018-09-19 13:20 | CP.PCM.PN ---
<Eliana Mendieta - Last Filed: 09/19/18 13:13> Subjective - Date & Time of Evaluation Date of Evaluation: 09/19/18 Time of Evaluation: 13:13 - Subjective Subjective: Eliana Mendieta DO PGY-[address] Barraza Pt was seen and examined at bedside. He states that his leg swelling has improv ed drastically and that he feels lubricator granulator. He denies any acute overnight events and states that he is not having any SOB, or coughing. He denies having any issues urinating, and states that he is just going frequently. He denies any fevers, chills, nausea, vomiting, abdominal pain or chest pain. Objective - Vital Signs/Intake and Output Vital Signs (last 24 hours): Temp Pulse Resp BP Pulse Ox 97.8 F 82 18 112/73 97 09/19/18 12:00 09/19/18 12:00 09/19/18 12:00 09/19/18 12:00 09/19/18 05:58 Intake and Output: 09/19/18 09/19/18 06:59 18:59 Intake Total 340 Output Total 950 Balance -610 - Medications Medications: Current Medications Aspirin (Aspirin Chewable) 81 mg PO DAILY [facility] Last Admin: 09/19/18 09:53 Dose: 81 mg Atorvastatin Calcium (Lipitor) 10 mg PO DIN [facility] Last Admin: 09/18/18 16:26 Dose: 10 mg Carvedilol (Coreg) 3.125 mg PO BID [facility] Last Admin: 09/19/18 09:53 Dose: 3.125 mg Clopidogrel Bisulfate (Plavix) 75 mg PO DAILY [facility] Last Admin: 09/19/18 09:53 Dose: 75 mg Enoxaparin Sodium (Lovenox) 90 mg SC Q12 [facility]; Protocol Stop: 09/20/18 11:00 Last Admin: 09/19/18 09:51 Dose: 90 mg Furosemide (Lasix) 40 mg IVP DAILY [facility] Milrinone Lactate/Dextrose (Primacor 20mg/100ml D5w) 100 mls @ 10.869 mls/hr IV .Q9H13M PRN; Protocol PRN Reason: TITRATE PER MD ORDER Last Admin: 09/19/18 06:38 Dose: 0.375 mcg/kg/min, 10.869 mls/hr Lisinopril (Zestril) 2.5 mg PO DAILY [facility] Last Admin: 09/19/18 09:53 Dose: 2.5 mg Lorazepam (Ativan) 2 mg IVP Q6H PRN; Protocol PRN Reason: Symptoms of alcohol withdrawl Metolazone (Zaroxolyn) 5 mg PO DAILY [facility] Stop: 09/20/18 23:59 Last Admin: 09/19/18 09:53 Dose: 5 mg Pantoprazole Sodium (Protonix Ec Tab) 40 mg PO 0600 [facility] Last Admin: 09/19/18 05:21 Dose: 40 mg Spironolactone (Aldactone) 25 mg PO BID [facility] Last Admin: 09/19/18 09:53 Dose: 25 mg Verapamil HCl (Calan Tab) 40 mg PO TID [facility] Last Admin: 09/19/18 09:53 Dose: 40 mg Verapamil HCl (Verapamil Inj) 2.5 mg IVP Q6H PRN PRN Reason: for heart rate >130 Last Admin: 09/18/18 08:47 Dose: 2.5 mg - Labs Labs: 09/19/18 06:30 09/19/18 06:30 PT 16.1 SECONDS (9.4-12.5) H 09/16/18 09:20 INR 1.39 09/16/18 09:20 APTT 28.4 Seconds (25.1-36.5) 09/16/18 09:20 - Constitutional Appears: Well, Non-toxic, No Acute Distress - Head Exam Head Exam: ATRAUMATIC, NORMAL INSPECTION, NORMOCEPHALIC - Eye Exam Eye Exam: EOMI, Normal appearance Pupil Exam: NORMAL ACCOMODATION - Respiratory Exam Respiratory Exam: Clear to Ausculation Bilateral, NORMAL BREATHING PATTERN. absent: Accessory Muscle Use, Rales, Rhonchi, Wheezes, Respiratory Distress, Stridor - Cardiovascular Exam Cardiovascular Exam: RRR, +S1, +S2 - GI/Abdominal Exam GI & Abdominal Exam: Soft, Normal Bowel Sounds. absent: Firm, Rigid, Tenderness - Extremities Exam Extremities Exam: Full ROM, Normal Capillary Refill, Normal Inspection, Pedal Edema (trace). absent: Calf Tenderness - Back Exam Back Exam: tenderness. absent: CVA tenderness (L), CVA tenderness (R) - Neurological Exam Neurological Exam: Alert, Awake, Oriented x3 - Psychiatric Exam Psychiatric exam: Normal Affect, Normal Mood - Skin Skin Exam: Dry, Intact, Normal Color, Warm Assessment and Plan - Assessment and Plan (Free Text) Assessment: 78 yo M with PMH of HTN, alcoholic liver cirrhosis, angina (prior normal stress test) presents with worsening LE edema, in AFib, has chest discomfort, orthopnea, PND, b/l pleural effusions, and dark urine. Pts urine is improving in color and is no longer dark and LE edema is improved. Plan: 1. CHF Exacerbation with periodic episodes of AFib likely 2/2 worsening alcohol induced cardiomyopathy - Peripheral edema is likely 2/2 to CHF exacerbation primarily - Lasix dose adjusted to be 40 IV QD - Echo completed with EF of 30% - Currently on milrinone drip, coreg, therapeutic lovenox, aldactone, verapamil, and metolazone per cardiology recs - Per cardiology, plan is for cardiac cath on Friday and continue to monitor on tele over the weekend - Cardiology consulted, recs appreciated 2. Acute liver dysfunction Likely 2/2 alcoholic hepatitis - May also have component of cirrhosis from chronic alcohol abuse. - Patient appears less jaundiced today - AST/ALT downtrending, continue to monitor - No sign of significant ascites at this time - Changed to lasix 40 IV QD - Per GI recs, patient would benefit from outpatient EGD - Will set patient up with GI appointment prior to discharge to follow up 3. B/l Pleural Effusions Likely 2/2 component of both liver dysfunction and CHF exacerbation s/p thoracentesis 3 days ago - Pleural fluid pH of 7.5, so low suspicion for infectious etiology - Cytology, LDH, protein sent. Called [facility] lab to verify receipt. Test will take 2-3 days to complete. - LE Doppler negative for DVT - Continue therapeutic lovenox per cardiology recs - Blood cx, procal negative to date 4. LLE erythema - Improving - LLE is imprvoing and responding to lasix therapy - rocephin, zithromax d/yolande since LE swelling no longer suspected to be cellulitis 5. Dark Urine - Improving - Patient states he noticed his urine was dark on admission - UA x 2 negative for blood - Patient states he has history of BPH and has seen urologist in the past - Urine cx negative to date - Patient states this has now improved and urine is normal color 6. Hypokalemia - Improved Normal this AM Recheck next AM 7. PPX DVT/GI PPX: Lovenox (therapeutic for AFib, f/u further cardiology recs), SCD, protonix Full Code HHD Monitor on telemetry <Cathi Barraza - Last Filed: 09/19/18 14:18> Objective - Vital Signs/Intake and Output Vital Signs (last 24 hours): Temp Pulse Resp BP Pulse Ox 97.8 F 97 H 18 112/73 97 09/19/18 12:00 09/19/18 13:14 09/19/18 12:00 09/19/18 13:14 09/19/18 05:58 Intake and Output: 09/19/18 09/19/18 06:59 18:59 Intake Total 340 Output Total 950 Balance -610 - Medications Medications: Current Medications Aspirin (Aspirin Chewable) 81 mg PO DAILY [facility] Last Admin: 09/19/18 09:53 Dose: 81 mg Atorvastatin Calcium (Lipitor) 10 mg PO DIN [facility] Last Admin: 09/18/18 16:26 Dose: 10 mg Carvedilol (Coreg) 3.125 mg PO BID [facility] Last Admin: 09/19/18 09:53 Dose: 3.125 mg Clopidogrel Bisulfate (Plavix) 75 mg PO DAILY [facility] Last Admin: 09/19/18 09:53 Dose: 75 mg Enoxaparin Sodium (Lovenox) 90 mg SC Q12 [facility]; Protocol Stop: 09/20/18 11:00 Last Admin: 09/19/18 09:51 Dose: 90 mg Furosemide (Lasix) 40 mg IVP DAILY [facility] Milrinone Lactate/Dextrose (Primacor 20mg/100ml D5w) 100 mls @ 10.869 mls/hr IV .Q9H13M PRN; Protocol PRN Reason: TITRATE PER MD ORDER Last Admin: 09/19/18 06:38 Dose: 0.375 mcg/kg/min, 10.869 mls/hr Lisinopril (Zestril) 2.5 mg PO DAILY [facility] Last Admin: 09/19/18 09:53 Dose: 2.5 mg Lorazepam (Ativan) 2 mg IVP Q6H PRN; Protocol PRN Reason: Symptoms of alcohol withdrawl Metolazone (Zaroxolyn) 5 mg PO DAILY [facility] Stop: 09/20/18 23:59 Last Admin: 09/19/18 09:53 Dose: 5 mg Pantoprazole Sodium (Protonix Ec Tab) 40 mg PO 0600 [facility] Last Admin: 09/19/18 05:21 Dose: 40 mg Spironolactone (Aldactone) 25 mg PO BID [facility] Last Admin: 09/19/18 09:53 Dose: 25 mg Verapamil HCl (Calan Tab) 40 mg PO TID [facility] Last Admin: 09/19/18 13:14 Dose: 40 mg Verapamil HCl (Verapamil Inj) 2.5 mg IVP Q6H PRN PRN Reason: for heart rate >130 Last Admin: 09/18/18 08:47 Dose: 2.5 mg - Labs Labs: 09/19/18 06:30 09/19/18 06:30 PT 16.1 SECONDS (9.4-12.5) H 09/16/18 09:20 INR 1.39 09/16/18 09:20 APTT 28.4 Seconds (25.1-36.5) 09/16/18 09:20 Attending/Attestation - Attestation I have personally seen and examined this patient.: Yes I have fully participated in the care of the patient.: Yes I have reviewed all pertinent clinical information, including history, physical exam and plan: Yes Notes (Text): 09/19/18 14:15 Attending note; Patient seen and examined with resident. Patient is alert and awake. Leg swelling is improving. Shortness of breath improved significantly. Patient is a 78 year old male with PMH of HTN, alcohol abuse, intermittent angina (stress test in 2016 was normal), BPH admitted with bilateral lower extremity swelling worsening over the past two months. 1. Exertional dyspnea and bilateral lower extremity swelling. severe cardiomyopathy. Ejection fraction of 25-30%. Patient is started on milrinone drip. Urine output is increasing. Respiratory distress is improving. on IV Lasix. Lower extremity Doppler is negative DVT. Cardiology evaluation appreciated. Continue aspirin, Coreg, lisinopril, metolazone, Lasix, Aldactone and Lipitor. 2. New-onset A. fib; currently on verapamil, Started on therapeutic dose Lovenox. Currently rate controlled. Possible cardiac cath early next week. Case discussed with cardiology in detail. 3. Chronic alcohol abuse. Complete alcohol cessation is strongly recommended. Currently not in alcohol withdrawal. 4. Elevated LFTs and mild ascites; secondary to alcohol abuse. GI evaluation appreciated. 5. Bilateral pleural effusion; mostly secondary to CHF. Pulmonary evaluation appreciated. Status post thoracentesis. Significantly improved respiratory status. Thoracentesis fluid showed transudate. Pleural fluid culture is negative. Denies any fevers, chills. Rocephin and Zithromax discontinued. Physical therapy evaluation appreciated. Upon discharge the patient will follow up with PMD .
--- NOTE | 2018-09-19 17:26 | PN ---
DATE: 09/19/2018 This note is an addition to dictated by nurse practitioner. REASON FOR CONSULTATION AND FOLLOWUP: Acute decompensated congestive heart failure, cardiomyopathy, rule out DE, coronary artery disease, history of heavy alcohol abuse. Plan is to continue IV Primacor for next 24 hours. Continue aggressive diuresis. Patient is everyday negative liter of fluid balance. Started aspirin and Plavix. Continue Lovenox until tomorrow. Keep n.p.o. for cardiac catheterization on Friday. Continue JANETTE inhibitor, Coreg and metolazone. For AFib, the patient is on Lovenox. Once cardiac catheterization is completed and they find no significant we will start Eliquis. We will follow with you. Thank you Dr. Barraza for providing us the opportunity in taking care of the patientJayce. Karan Moore MD
[2018-09-20] MEDS: Milrinone 20mg/100ml D5W 100 ML IV PRN ×3 (02:24→20:28)
[2018-09-20 06:00] VITALS: O2SAT 98
[2018-09-20] MEDS: Pantoprazole 40 mg EC Tab PO SCH (06:03)
[2018-09-20 08:12] LABS: BASO # 0.05 K/mm3 (0.0-2.0); BASO % 0.9 % (0.0-3.0); EOS # 0.1 (0.0-0.7); EOS % 2.1 % (1.5-5.0); GRAN # 3.87 (1.4-6.5); GRAN % 67.5 % (50.0-68.0); HEMOGLOBIN 14.6 g/dL (14.0-18.0); LYMPH # 1.2 (1.2-3.4); LYMPH % 20.8 % (22.0-35.0); MEAN CELL VOLUME 91.1 fl (80.0-105.0); MEAN CORPUSCULAR HEMOGLOBIN 30.2 pg (25.0-35.0); MEAN CORPUSCULAR HGB CONC 33.1 g/dl (31.0-37.0); MEAN PLATELET VOLUME 11.5 fl (7.0-11.0); MONO # 0.5 (0.1-0.6); MONO % 8.7 % (1.0-6.0); RBC 4.84 10^6/uL (3.5-6.1); WHITE BLOOD COUNT 5.7 10^3/uL (4.5-11.0)
--- NOTE | 2018-09-20 08:13 | CP.PCM.PN ---
Subjective - Date & Time of Evaluation Date of Evaluation: 09/20/18 Time of Evaluation: 06:40 - Subjective Subjective: Sitting in chair,awake, alert, no distress, denies shortness of breath Reason for consultation and follow up: Cardiac evaluation of leg swelling,shortness of breath intermittent chest pain. History of hypertension,alcoholic liver cirrhosis, intermittent angina and BPH. Seen and examined by me and Dr. Moore Objective - Vital Signs/Intake and Output Vital Signs (last 24 hours): Temp Pulse Resp BP Pulse Ox 98.3 F 103 H 20 133/78 98 09/20/18 05:59 09/20/18 05:59 09/20/18 05:59 09/20/18 05:59 09/20/18 05:59 Intake and Output: 09/20/18 09/20/18 06:59 18:59 Intake Total Output Total Balance - Medications Medications: Current Medications Aspirin (Aspirin Chewable) 81 mg PO DAILY [facility] Last Admin: 09/19/18 09:53 Dose: 81 mg Atorvastatin Calcium (Lipitor) 10 mg PO DIN [facility] Last Admin: 09/19/18 17:58 Dose: 10 mg Carvedilol (Coreg) 3.125 mg PO BID [facility] Last Admin: 09/19/18 17:59 Dose: 3.125 mg Clopidogrel Bisulfate (Plavix) 75 mg PO DAILY [facility] Last Admin: 09/19/18 09:53 Dose: 75 mg Enoxaparin Sodium (Lovenox) 90 mg SC Q12 [facility]; Protocol Stop: 09/20/18 11:00 Last Admin: 09/19/18 22:16 Dose: 90 mg Furosemide (Lasix) 40 mg IVP DAILY [facility] Milrinone Lactate/Dextrose (Primacor 20mg/100ml D5w) 100 mls @ 10.869 mls/hr IV .Q9H13M PRN; Protocol PRN Reason: TITRATE PER MD ORDER Last Admin: 09/20/18 02:24 Dose: 0.375 mcg/kg/min, 10.869 mls/hr Lisinopril (Zestril) 2.5 mg PO DAILY [facility] Last Admin: 09/19/18 09:53 Dose: 2.5 mg Lorazepam (Ativan) 2 mg IVP Q6H PRN; Protocol PRN Reason: Symptoms of alcohol withdrawl Metolazone (Zaroxolyn) 5 mg PO DAILY [facility] Stop: 09/20/18 23:59 Last Admin: 09/19/18 09:53 Dose: 5 mg Pantoprazole Sodium (Protonix Ec Tab) 40 mg PO 0600 [facility] Last Admin: 09/20/18 06:03 Dose: 40 mg Spironolactone (Aldactone) 25 mg PO BID [facility] Last Admin: 09/19/18 17:58 Dose: 25 mg Verapamil HCl (Calan Tab) 40 mg PO TID [facility] Last Admin: 09/19/18 17:58 Dose: 40 mg Verapamil HCl (Verapamil Inj) 2.5 mg IVP Q6H PRN PRN Reason: for heart rate >130 Last Admin: 09/18/18 08:47 Dose: 2.5 mg - Labs Labs: 09/19/18 06:30 09/19/18 06:30 PT 16.1 SECONDS (9.4-12.5) H 09/16/18 09:20 INR 1.39 09/16/18 09:20 APTT 28.4 Seconds (25.1-36.5) 09/16/18 09:20 - Constitutional Appears: Non-toxic, No Acute Distress - Eye Exam Eye Exam: Normal appearance Pupil Exam: NORMAL ACCOMODATION - ENT Exam ENT Exam: Mucous Membranes Moist, Normal Exam - Respiratory Exam Respiratory Exam: Decreased Breath Sounds, Clear to Ausculation Bilateral, NORMAL BREATHING PATTERN - Cardiovascular Exam Cardiovascular Exam: Irregular Rhythm, +S1, +S2 Additional comments: Telemetry Atrial fibrillation 70-100's - GI/Abdominal Exam GI & Abdominal Exam: Soft, Normal Bowel Sounds - Extremities Exam Extremities Exam: Full ROM Additional comments: 2+ leg edema - Neurological Exam Neurological Exam: Alert, Awake, Oriented x3 - Psychiatric Exam Psychiatric exam: Normal Affect, Normal Mood - Skin Skin Exam: Dry, Normal Color, Warm Assessment and Plan - Assessment and Plan (Free Text) Assessment: A 78 year old male who was sent to the ER by PMD due to increasing leg swelling for the past 2 months. Current alcohol drinker of 4-5 beers per day. He has been drinking since he was 9 years old. Also complained of chest discomfort worsening for the past few days. History of alcoholic liver cirrhosis, hypertension, BPH. EKG showed atrial fibrillation.New onset atrial fibrillation, Cardizem drip started. Congestive heart failure,systolic dysfunction,secondary to alcoholic liver cirrhosis. On Primacor drip. CT of chest positive for moderate right pleural effusion, status post right thoracenthesis (Ultrasound guided) about 850 cc fluid aspirated. diuresing,Echo done- Moderately impaired LV function LVEF 25-30%, mild to moderate mitral regurgitation, mild tricuspid regurgitation RVSP 33 mmHg, For cardiac catheterization on Friday. Symptoms clinically improved.For cardiac catherization on Friday Plan: Denies chest pain or shortness of breath, verbalized feeling better For cardiac catherization on Friday NPO post midnight Friday Telemetry Atrial fibrillation, controlled rate 70- 100's Controlled blood pressure Continue Primacor drip I & O negative 2100 for the past 24 hours Alcohol withdrawal precaution On ASA 81 mg daily,Coreg 3.125 mg BID, Lovenox 90 mg every 12 hours Lasix 40 mg BID,Zestril 2.5 mg daily, Zaroxylyn 5 mg daily,Aldactone 25 mg BID Verapamil 40 mg TID Continue IV antibiotics as ordered Continue current treatment Continue current medications Chart reviewed Will follow up Plan and treatment discussed with Dr. Moore
[2018-09-20 08:55] LABS: ALB/GLOB RATIO 1.2 (1.1-1.8); ALBUMIN 3.6 g/dL (3.0-4.8); ALT/SGPT 61 U/L (7-56); AST/SGOT 67 U/L (17-59); BLOOD UREA NITROGEN 18 mg/dL (7-21); CALCIUM 9.3 mg/dL (8.4-10.5); GFR NON-AFRICAN AMERICAN > 60
[2018-09-20] MEDS: Enoxaparin 100 mg Syringe SC SCH (10:06)
[2018-09-20] MEDS: metOLazone 5 MG TAB PO SCH (10:08)
--- NOTE | 2018-09-20 13:43 | CP.PCM.PN ---
<Eliana Mendieta - Last Filed: 09/20/18 13:38> Subjective - Date & Time of Evaluation Date of Evaluation: 09/20/18 Time of Evaluation: 13:39 - Subjective Subjective: Eliana Mendieta DO PGY-[address] Barraza Pt was seen and examined at bedside. He states that his leg swelling continues to be well controlled. He denies any acute overnight events and states that he is not having any SOB, or coughing. He denies having any issues urinating, and states that he is going but less frequently with the decrease in his medication. He denies any fevers, chills, nausea, vomiting, abdominal pain or chest pain. He also denies any other acute complaints at this time. He is scheduled for a cardi ac cath on 09/21. Objective - Vital Signs/Intake and Output Vital Signs (last 24 hours): Temp Pulse Resp BP Pulse Ox 97.8 F 92 H 18 104/75 98 09/20/18 11:48 09/20/18 11:48 09/20/18 11:48 09/20/18 11:48 09/20/18 05:59 Intake and Output: 09/20/18 09/20/18 06:59 18:59 Intake Total 100 Output Total Balance 100 - Medications Medications: Current Medications Aspirin (Aspirin Chewable) 81 mg PO DAILY [facility] Last Admin: 09/20/18 10:08 Dose: 81 mg Atorvastatin Calcium (Lipitor) 10 mg PO DIN [facility] Last Admin: 09/19/18 17:58 Dose: 10 mg Carvedilol (Coreg) 3.125 mg PO BID [facility] Last Admin: 09/20/18 10:08 Dose: 3.125 mg Clopidogrel Bisulfate (Plavix) 75 mg PO DAILY [facility] Last Admin: 09/20/18 10:08 Dose: 75 mg Furosemide (Lasix) 40 mg PO DAILY [facility] Milrinone Lactate/Dextrose (Primacor 20mg/100ml D5w) 100 mls @ 10.869 mls/hr IV .Q9H13M PRN; Protocol PRN Reason: TITRATE PER MD ORDER Stop: 09/21/18 06:00 Last Admin: 09/20/18 11:28 Dose: 0.375 mcg/kg/min, 10.869 mls/hr Sodium Chloride (Sodium Chloride 0.9%) 1,000 mls @ 75 mls/hr IV .[id number] [facility] Lisinopril (Zestril) 2.5 mg PO DAILY [facility] Last Admin: 09/20/18 10:08 Dose: 2.5 mg Lorazepam (Ativan) 2 mg IVP Q6H PRN; Protocol PRN Reason: Symptoms of alcohol withdrawl Metolazone (Zaroxolyn) 5 mg PO DAILY [facility] Stop: 09/20/18 23:59 Last Admin: 09/20/18 10:08 Dose: 5 mg Pantoprazole Sodium (Protonix Ec Tab) 40 mg PO 0600 [facility] Last Admin: 09/20/18 06:03 Dose: 40 mg Spironolactone (Aldactone) 25 mg PO DAILY [facility] Verapamil HCl (Calan Tab) 40 mg PO TID [facility] Last Admin: 09/20/18 10:09 Dose: 40 mg Verapamil HCl (Verapamil Inj) 2.5 mg IVP Q6H PRN PRN Reason: for heart rate >130 Last Admin: 09/18/18 08:47 Dose: 2.5 mg - Labs Labs: 09/20/18 07:30 09/20/18 07:30 PT 16.1 SECONDS (9.4-12.5) H 09/16/18 09:20 INR 1.39 09/16/18 09:20 APTT 28.4 Seconds (25.1-36.5) 09/16/18 09:20 - Constitutional Appears: Well, Non-toxic, No Acute Distress - Head Exam Head Exam: ATRAUMATIC, NORMAL INSPECTION - Eye Exam Eye Exam: EOMI, Normal appearance, PERRL - ENT Exam ENT Exam: Mucous Membranes Moist - Respiratory Exam Respiratory Exam: Clear to Ausculation Bilateral, NORMAL BREATHING PATTERN. absent: Accessory Muscle Use, Rales, Rhonchi, Wheezes, Respiratory Distress, Stridor - Cardiovascular Exam Cardiovascular Exam: RRR, +S1, +S2. absent: Gallop, Rubs - GI/Abdominal Exam GI & Abdominal Exam: Soft, Normal Bowel Sounds. absent: Firm, Guarding, Rigid, Tenderness - Extremities Exam Extremities Exam: Full ROM, Normal Capillary Refill, Pedal Edema (trace). absent: Calf Tenderness, Tenderness - Back Exam Back Exam: NORMAL INSPECTION. absent: CVA tenderness (L), CVA tenderness (R) - Neurological Exam Neurological Exam: Alert, Awake, Oriented x3 - Psychiatric Exam Psychiatric exam: Normal Affect, Normal Mood - Skin Skin Exam: Dry, Intact, Normal Color, Warm Assessment and Plan - Assessment and Plan (Free Text) Assessment: 78 yo M with PMH of HTN, alcoholic liver cirrhosis, angina (prior normal stress test) presents with worsening LE edema, in AFib, has chest discomfort, o rthopnea, PND, b/l pleural effusions, and dark urine. Pts urine is improving in color and is no longer dark and LE edema is improved. Plan: 1. CHF Exacerbation with periodic episodes of AFib likely 2/2 worsening alcohol induced cardiomyopathy - Peripheral edema is likely 2/2 to CHF exacerbation primarily - Lasix dose adjusted to be 40 IV QD - Echo completed with EF of 30% - Currently on milrinone drip, coreg, therapeutic lovenox, aldactone, verapamil, and metolazone per cardiology recs - Per cardiology, plan is for cardiac cath on Friday and continue to monitor on tele today - Cardiology consulted, recs appreciated 2. Acute liver dysfunction Likely 2/2 alcoholic hepatitis - May also have component of cirrhosis from chronic alcohol abuse. - Patient appears less jaundiced today - AST/ALT downtrending, continue to monitor - No sign of significant ascites at this time - Changed to lasix 40 IV QD - Per GI recs, patient would benefit from outpatient EGD - Will set patient up with GI appointment prior to discharge to follow up 3. B/l Pleural Effusions Likely 2/2 component of both liver dysfunction and CHF exacerbation s/p thoracentesis 3 days ago - Pleural fluid pH of 7.5, so low suspicion for infectious etiology - Cytology, LDH, protein sent. Called [facility] lab to verify receipt. Test will take 2-3 days to complete. - Continue therapeutic lovenox per cardiology recs - Blood cx, procal negative to date 4. LLE erythema - Improving - LLE is imprvoing and responding to lasix therapy - B/l dopplers are negative for DVT - rocephin, zithromax d/yolande since LE swelling no longer suspected to be cellulitis 5. Dark Urine - Improving - Patient states he noticed his urine was dark on admission - UA x 2 negative for blood - Patient states he has history of BPH and has seen urologist in the past - Urine cx negative to date - Patient states this has now improved and urine is normal color 6. Hypokalemia - Improved Normal this AM Recheck next AM 7. PPX DVT/GI PPX: Lovenox (therapeutic for AFib, f/u further cardiology recs), SCD, protonix Full Code HHD Monitor on telemetry Case seen and discussed with Dr. Christi Mendieta PGY1 <Cathi Barraza - Last Filed: 09/20/18 14:00> Objective - Vital Signs/Intake and Output Vital Signs (last 24 hours): Temp Pulse Resp BP Pulse Ox 97.8 F 92 H 18 104/75 98 09/20/18 11:48 09/20/18 13:37 09/20/18 11:48 09/20/18 13:37 09/20/18 05:59 Intake and Output: 09/20/18 09/20/18 06:59 18:59 Intake Total 100 Output Total Balance 100 - Medications Medications: Current Medications Aspirin (Aspirin Chewable) 81 mg PO DAILY [facility] Last Admin: 09/20/18 10:08 Dose: 81 mg Atorvastatin Calcium (Lipitor) 10 mg PO DIN [facility] Last Admin: 09/19/18 17:58 Dose: 10 mg Carvedilol (Coreg) 3.125 mg PO BID [facility] Last Admin: 09/20/18 10:08 Dose: 3.125 mg Clopidogrel Bisulfate (Plavix) 75 mg PO DAILY [facility] Last Admin: 09/20/18 10:08 Dose: 75 mg Furosemide (Lasix) 40 mg PO DAILY [facility] Milrinone Lactate/Dextrose (Primacor 20mg/100ml D5w) 100 mls @ 10.869 mls/hr IV .Q9H13M PRN; Protocol PRN Reason: TITRATE PER MD ORDER Stop: 09/21/18 06:00 Last Admin: 09/20/18 11:28 Dose: 0.375 mcg/kg/min, 10.869 mls/hr Sodium Chloride (Sodium Chloride 0.9%) 1,000 mls @ 75 mls/hr IV .[id number] [facility] Lisinopril (Zestril) 2.5 mg PO DAILY [facility] Last Admin: 09/20/18 10:08 Dose: 2.5 mg Lorazepam (Ativan) 2 mg IVP Q6H PRN; Protocol PRN Reason: Symptoms of alcohol withdrawl Metolazone (Zaroxolyn) 5 mg PO DAILY [facility] Stop: 09/20/18 23:59 Last Admin: 09/20/18 10:08 Dose: 5 mg Pantoprazole Sodium (Protonix Ec Tab) 40 mg PO 0600 [facility] Last Admin: 09/20/18 06:03 Dose: 40 mg Spironolactone (Aldactone) 25 mg PO DAILY [facility] Verapamil HCl (Calan Tab) 40 mg PO TID [facility] Last Admin: 09/20/18 13:37 Dose: 40 mg Verapamil HCl (Verapamil Inj) 2.5 mg IVP Q6H PRN PRN Reason: for heart rate >130 Last Admin: 09/18/18 08:47 Dose: 2.5 mg - Labs Labs: 09/20/18 07:30 09/20/18 07:30 PT 16.1 SECONDS (9.4-12.5) H 09/16/18 09:20 INR 1.39 09/16/18 09:20 APTT 28.4 Seconds (25.1-36.5) 09/16/18 09:20 Attending/Attestation - Attestation I have personally seen and examined this patient.: Yes I have fully participated in the care of the patient.: Yes I have reviewed all pertinent clinical information, including history, physical exam and plan: Yes Notes (Text): 09/20/18 13:59 Attending note; Patient seen and examined with resident. Patient is alert and awake. Leg swelling is improving. Shortness of breath improved significantly. Patient is a 78 year old male with PMH of HTN, alcohol abuse, intermittent angina (stress test in 2016 was normal), BPH admitted with bilateral lower extremity swelling worsening over the past two months. 1. Exertional dyspnea and bilateral lower extremity swelling. severe cardiomyopathy. Ejection fraction of 25-30%. Patient is started on milrinone drip. Urine output is increasing. Respiratory distress is improving. on IV Lasix. Lower extremity Doppler is negative DVT. Cardiology evaluation appreciated. Continue aspirin, Coreg, lisinopril, metolazone, Lasix, Aldactone and Lipitor. 2. New-onset A. fib; currently on verapamil. lovenox on hold. Start eliquis after cath. Currently rate controlled. Plan for cardiac cath tomorrow. nothing by mouth past midnight. Case discussed with cardiology in detail. 3. Chronic alcohol abuse. Complete alcohol cessation is strongly recommended. Currently not in alcohol withdrawal. 4. Elevated LFTs and mild ascites; secondary to alcohol abuse. GI evaluation appreciated. 5. Bilateral pleural effusion; mostly secondary to CHF. Pulmonary evaluation appreciated. Status post thoracentesis. Significantly improved respiratory status. Thoracentesis fluid showed transudate. Pleural fluid culture is negative. Physical therapy evaluation appreciated. Upon discharge the patient will follow up with PMD . 09/20/18 13:59
--- NOTE | 2018-09-20 16:41 | PN ---
DATE: 09/20/2018 REASON FOR CONSULTATION : Acute decompensated congestive heart failure, rule out underlying coronary artery disease; history of alcohol abuse. This note is in addition to the dictated by our nurse practitioner. The patient started on Primacor, feels a lot better, is scheduled for cardiac catheterization tomorrow. Echo shows decreased LV function; history of atrial fibrillation on Lovenox. Echo 09/17/2018 revealed ejection fraction 25 to 30%, mild TR, RV systolic pressure of 33. Admitted due to decompensated congestive heart failure, rule out underlying coronary artery disease for this acute decompensation. Discussed with family, agreed for cardiac catheterization. We will proceed for cardiac catheterization. Interim, continue aspirin, continue Coreg, continue verapamil, continue Lasix and we will switch Lasix to 40 mg from tomorrow. We will discontinue enoxaparin today. Continue Plavix, discontinue milrinone tomorrow. We will discontinue metaxalone after two days dose, start Lasix p.o. from tomorrow. Further recommendation based on hospital course, we will follow with you. Keep n.p.o. after midnight. We will start 75 mL of IV fluids from tomorrow at 7 a.m. for pre-cath protect the renal function for . Karan Moore MD
[2018-09-21] MEDS: Pantoprazole 40 mg EC Tab PO SCH (05:57)
[2018-09-21] MEDS ORDERED: Sodium Chloride 0.9% 1,000 ML IV SCH ×2 (06:00→08:30)
--- NOTE | 2018-09-21 06:12 | CP.PCM.PN ---
Subjective - Date & Time of Evaluation Date of Evaluation: 09/21/18 Time of Evaluation: 06:35 - Subjective Subjective: No distress, denies chest pain,sitting in chair,awake, alert, for cardiac cath today Reason for consultation and follow up: Cardiac evaluation of leg swelling,shortness of breath intermittent chest pain. History of hypertension,alcoholic liver cirrhosis, intermittent angina and BPH. Seen and examined by me and Dr. Moore Objective - Vital Signs/Intake and Output Vital Signs (last 24 hours): Temp Pulse Resp BP Pulse Ox 97.7 F 89 20 91/47 L 98 09/20/18 23:22 09/21/18 02:00 09/20/18 23:22 09/20/18 23:22 09/20/18 05:59 Intake and Output: 09/20/18 09/21/18 18:59 06:59 Intake Total 770 340 Output Total 2575 1200 Balance -1805 -860 - Medications Medications: Current Medications Aspirin (Aspirin Chewable) 81 mg PO DAILY [facility] Last Admin: 09/20/18 10:08 Dose: 81 mg Atorvastatin Calcium (Lipitor) 10 mg PO DIN [facility] Last Admin: 09/20/18 17:07 Dose: 10 mg Carvedilol (Coreg) 3.125 mg PO BID [facility] Last Admin: 09/20/18 17:09 Dose: 3.125 mg Clopidogrel Bisulfate (Plavix) 75 mg PO DAILY [facility] Last Admin: 09/20/18 10:08 Dose: 75 mg Furosemide (Lasix) 40 mg PO DAILY [facility] Sodium Chloride (Sodium Chloride 0.9%) 1,000 mls @ 75 mls/hr IV .[id number] [facility] Last Admin: 09/21/18 05:57 Dose: 75 mls/hr Lisinopril (Zestril) 2.5 mg PO DAILY [facility] Last Admin: 09/20/18 10:08 Dose: 2.5 mg Lorazepam (Ativan) 2 mg IVP Q6H PRN; Protocol PRN Reason: Symptoms of alcohol withdrawl Pantoprazole Sodium (Protonix Ec Tab) 40 mg PO 0600 [facility] Last Admin: 09/21/18 05:57 Dose: 40 mg Spironolactone (Aldactone) 25 mg PO DAILY [facility] Verapamil HCl (Calan Tab) 40 mg PO TID [facility] Last Admin: 09/20/18 17:07 Dose: 40 mg Verapamil HCl (Verapamil Inj) 2.5 mg IVP Q6H PRN PRN Reason: for heart rate >130 Last Admin: 09/18/18 08:47 Dose: 2.5 mg - Labs Labs: 09/20/18 07:30 09/20/18 07:30 PT 16.1 SECONDS (9.4-12.5) H 09/16/18 09:20 INR 1.39 09/16/18 09:20 APTT 28.4 Seconds (25.1-36.5) 09/16/18 09:20 - Constitutional Appears: Non-toxic, No Acute Distress - Head Exam Head Exam: NORMAL INSPECTION, NORMOCEPHALIC - Eye Exam Eye Exam: Normal appearance Pupil Exam: NORMAL ACCOMODATION - ENT Exam ENT Exam: Mucous Membranes Moist, Normal Exam - Respiratory Exam Respiratory Exam: Decreased Breath Sounds, Clear to Ausculation Bilateral, NORMAL BREATHING PATTERN - Cardiovascular Exam Cardiovascular Exam: Irregular Rhythm, +S1, +S2 Additional comments: Telemetry atrial fibrillation 90's - GI/Abdominal Exam GI & Abdominal Exam: Soft, Normal Bowel Sounds - Extremities Exam Extremities Exam: Full ROM Additional comments: 2+ leg edema - Neurological Exam Neurological Exam: Alert, Awake, Oriented x3 - Psychiatric Exam Psychiatric exam: Normal Affect, Normal Mood - Skin Skin Exam: Dry, Normal Color, Warm Assessment and Plan - Assessment and Plan (Free Text) Assessment: A 78 year old male who was sent to the ER by PMD due to increasing leg swelling for the past 2 months. Current alcohol drinker of 4-5 beers per day. He has been drinking since he was 9 years old. Also complained of chest discomfort worsening for the past few days. History of alcoholic liver cirrhosis, hypertension, BPH. EKG showed atrial fibrillation.New onset atrial fibrillation, Cardizem drip started. Congestive heart failure,systolic dysfunction,secondary to alcoholic liver cirrhosis. On Primacor drip. CT of chest positive for moderate right pleural effusion, status post right thoracenthesis (Ultrasound guided) about 850 cc fluid aspirated. diuresing,Echo done- Moderately impaired LV function LVEF 25-30%, mild to moderate mitral regurgitation, mild tricuspid regurgitation RVSP 33 mmHg, For cardiac catheterization on Friday. Symptoms clinically improved.For cardiac catherization today. Plan: For cardiac catherization today Denies chest pain or shortness of breath Telemetry Atrial fibrillation, controlled rate 90's Controlled blood pressure Continue Primacor drip On ASA 81 mg daily,Coreg 3.125 mg BID, Lovenox 90 mg every 12 hours Lasix 40 mg BID,Zestril 2.5 mg daily, Zaroxylyn 5 mg daily, Aldactone 25 mg BID Verapamil 40 mg TID Continue IV antibiotics as ordered Continue current treatment Continue current medications Chart reviewed Will follow up Further recommendation after cardiac catheterization Plan and treatment discussed with Dr. Moore
[2018-09-21] MEDS ORDERED: Verapamil 2 ML ONE (07:00)
[2018-09-21] MEDS ORDERED: Lidocaine 2% PF (10 ml) Amp ONE (07:00)
[2018-09-21] MEDS ORDERED: Iodixanol 320 MG/ML 200 ML BOTTLE IV ONE (07:01)
[2018-09-21] MEDS ORDERED: Iodixanol 320 MG/ML 100 ML BOTTLE IV ONE (07:01)
[2018-09-21] MEDS ORDERED: Nitroglycerin 50mg in D5W 50 MG/250 ML BOTTLE IV ONE (07:01)
[2018-09-21] MEDS ORDERED: Iohexol 350mgl/ml 50 ML ONE (07:01)
[2018-09-21 07:09] LABS: BASO # 0.02 K/mm3 (0.0-2.0); BASO % 0.3 % (0.0-3.0); EOS # 0.2 (0.0-0.7); EOS % 3.1 % (1.5-5.0); GRAN # 3.87 (1.4-6.5); GRAN % 66.6 % (50.0-68.0); LYMPH # 1.3 (1.2-3.4); LYMPH % 21.6 % (22.0-35.0); MEAN CELL VOLUME 90.8 fl (80.0-105.0); MEAN CORPUSCULAR HEMOGLOBIN 30.1 pg (25.0-35.0); MEAN CORPUSCULAR HGB CONC 33.2 g/dl (31.0-37.0); MEAN PLATELET VOLUME 11.6 fl (7.0-11.0); MONO # 0.5 (0.1-0.6); MONO % 8.4 % (1.0-6.0); RBC 4.65 10^6/uL (3.5-6.1); WHITE BLOOD COUNT 5.8 10^3/uL (4.5-11.0)
[2018-09-21 07:19] LABS: ALB/GLOB RATIO 1.2 (1.1-1.8); ALBUMIN 3.4 g/dL (3.0-4.8); ALT/SGPT 71 U/L (7-56); AST/SGOT 80 U/L (17-59); BLOOD UREA NITROGEN 20 mg/dL (7-21); GFR NON-AFRICAN AMERICAN > 60
[2018-09-21] MEDS ORDERED: Midazolam 2 MG/2 ML VIAL ONE (07:45)
[2018-09-21] MEDS ORDERED: Bacitracin 500 Units/gm Oint Foilpak UD TOP ONE (08:17)
--- NOTE | 2018-09-21 08:21 | IP.NPCORE ---
Heart Failure Core Measure - Heart Failure Ejection Fraction: Less Than 40 % JANETTE Inhibitor Prescribed: Yes Beta-Ethan Prescribed: Carvedilol Angiotensin II Receptor Ethan Prescribed: Yes AnticoagulationTherapy for Atrial Fibrillation/Atrialflutter: Yes Aldosterone Antagonist Prescribed: Yes Hydralazine Nitrate Prescribed: No Contraindication/Reason for not providing: hypotension Implantable Cardioverter Defibrillator Therapy: No Contraindication/Reason for not providing: noncompliance Cardiac Resynchronization Therapy Prescribed: No Contraindication/Reason for not providing: noncompliance - Follow up Will be discharged to: Home Follow Up Date (must be within 7 days from discharge): 09/28/18 Follow Up Time: 12:30
--- NOTE | 2018-09-21 09:02 | CPOSTOP ---
DATE: 09/21/2018 CARDIOVASCULAR LAB POST PROCEDURE NOTE DICTATING PHYSICIAN: Karan Moore MD. SWING GRINDER: MYAH Acharya. TYPE OF ANESTHESIA: Moderate conscious sedation, total of 2 mg of Versed, 100 of fentanyl given. Periodically started 1 mg of Versed and 50 of fentanyl. PRE-PROCEDURE DIAGNOSES: Chest pain, unstable angina, acutely decompensated congestive heart failure. PROCEDURE PERFORMED: Left heart catheterization. FINDINGS: Mid RCA 50% stenosis and very distal LAD 95% stenosis near the apex. FINAL DIAGNOSES: Small vessel coronary artery disease, major epicardial normal, and cardiomyopathy, possibly related to alcohol. POST PROCEDURE PATIENT CONDITION: Stable. VASCULAR ACCESS SITE: Left radial. CLOSURE DEVICE: TR band. TOTAL RADIATION DOSE: 5060.6 milligray unit. TOTAL FLUORO TIME: 1.6 minutes. TOTAL CONTRAST USED: 30 mL. Karan Moore MD
--- NOTE | 2018-09-21 11:37 | PN ---
DATE: 09/21/2018 REASON FOR THE CONSULTATION: Followup acute decompensated congestive heart failure, cardiomyopathy. SUBJECTIVE: The patient denies any chest pain, shortness of breath or any palpitation. The patient underwent left heart catheterization, nonobstructive coronary artery disease, very distal LAD near the apex and mid RCA has 50% stenosis. Medical treatment recommended. We will start digoxin, Coreg, JANETTE inhibitor, diuretics and we will start Eliquis 5 mg tomorrow b.i.d. for atrial fibrillation. Follow up in 1 week. Nonischemic cardiomyopathy, nonobstructive coronary artery disease, alcohol abuse cirrhosis. FINAL DIAGNOSES: Atrial fibrillation, possibly secondary to alcohol-related disease. Thank you, Dr. Lewis for providing us the opportunity in taking care of the patient, Jayce Arias. Karan Moore MD cc: Zulma Zimmer MD.
[2018-09-21] MEDS ORDERED: Bacitracin 500 Units/gm Oint Foilpak UD ONE (12:32)
[2018-09-21 12:58] VITALS: BP 112/60; RESP 18; TEMP 98
[2018-09-21] MEDS: Digoxin 125 mcg (0.125 mg) Tab PO SCH ×2 (14:00→18:04)
[2018-09-21 15:47] VITALS: PULSE 88
[2018-09-21 18:05] VITALS: PULSE 89
--- NOTE | 2018-09-21 18:59 | CARD ---
APPROVED REPORT Date of service: 09/21/2018 Procedure(s) performed: Left Heart Catheterization HISTORY The patient is a 78 year-old male with a history of : most recent EF: 25%. (EF Method: Echocardiogram), previous CHF, hypertension , dyslipidemia , Hx of heavy ETOH abuse admitted with acute CHF secondary to systolic dys function and A fib, possible New onset.. INDICATION The indication(s) include : arrhythmia, atrial fibrillation, dyspnea, New CHF with decresed Lv FX. CASE TECHNIQUE The patient was brought electively to the Cardiac Catheterization Laboratory in a fasting state and was prepped and draped in a sterile manner. The left wrist was infiltrated with 2% Lidocaine subcutaneous anesthesia. A 6FR GLIDESHEATH ACCESS KIT sheath was inserted into the left radial artery without difficulty. Coronary angiography was performed using coronary diagnostic catheters. The left coronary system was accessed and visualized with a Diagnostic ,5F JL 4 CATH DXT 100 CM catheter. The right coronary system was accessed and visualized with a Diagnostic ,5F JR 4 CATH DXT 100 CM catheter. The left ventricle was accessed and visualized with a 5F JR 4 CATH DXT 100 CM catheter. Left ventricular/Aortic Valve gradient assessed on pullback. Left ventriculogram was performed in SIDDIQUI projection. Closure device was deployed with a Fr TR Band (Regular) without any complications. The patient tolerated the procedure well and there were no complications associated with the procedure. Vessel Analysis The patient's coronary anatomy is co-dominant. The left main coronary artery is a large size vessel without significant stenosis. The left main bifurcates to the left anterior descending and circumflex. The left anterior descending artery is a medium size vessel with diffuse calcification noted throughout this vessel and with significant stenosis. There is a 90% stenosis in the Very distal segment at apex, not suitable for PCI.. The first diagonal branch is a small size vessel with intimal irregularities and without significant stenosis. The second diagonal branch is a small size vessel with intimal irregularities and without significant stenosis. The third diagonal branch is a large size vessel without significant stenosis. The circumflex artery is a large size vessel with intimal irregularities and without significant stenosis. The first obtuse marginal branch is a medium size vessel with diffuse calcification noted throughout this vessel and without significant stenosis. The second obtuse marginal branch is a medium size vessel with diffuse calcification noted throughout this vessel and without significant stenosis. The third obtuse marginal branch is a large size vessel with diffuse calcification noted throughout this vessel and without significant stenosis. The left posterior descending artery is a medium size vessel with diffuse calcification noted throughout this vessel and without significant stenosis. The right coronary artery is a large size vessel with diffuse calcification noted throughout this vessel and without significant stenosis. There is a 40-50% stenosis in the mid segment. The right posterolateral branch is a medium size vessel with diffuse calcification noted throughout this vessel and without significant stenosis. Left Ventricle The left ventricle is Enlarged in size with Moderately decreased contractility. Non-Ischemic cardiomyopathy. There was no cardiomyopathy. The left ventricular ejection fraction is estimated to be 30-35%. The left ventricular end diastolic pressure is 8-12 mmHg. There was no gradient across the aortic valve upon pullback. Conclusion Non Obstructive CAD. Very Distal LAD at apex 90% stenosis, not Suitable for PCI Mild to moderate Dis in Mid RCA. Decreased LV Fx. EF-30-35%, EDP-8-12 mmof Hg ( 4 hours off Primacor) Non Ischemic CMP, possible ETOH related A Fib secodary CMP, ETOH Recommendations Aggressive Medical TherapyCardiac Risk Reduction Program Weight Loss Reduction Program complete Abstinence of ETOH abuse. Add Dig, diuretic, JANETTE, Coreg, spironolactone and eliquis for A fib. reassess LV Fx in 3-6 months after gets sober. Cc; Drs. May/ Tracy.
--- NOTE | 2018-09-21 22:24 | CP.PCM.DIS ---
<Eh Garcia - Last Filed: 09/21/18 22:33> Provider - Provider Date of Admission: 09/16/18 12:31 Attending physician: Cathi Barraza MD Primary care physician: Felipe May MD Consults: Cardiology, Dr. Oscar SIFUENTES, Dr. Dozier Pulmonology, Dr. Raman Time Spent in preparation of Discharge (in minutes): 35 Hospital Course - Lab Results Lab Results: Micro Results 09/16/18 10:00 Blood-Venous Blood Culture - Final NO GROWTH AFTER 5 DAYS 09/16/18 10:00 Blood-Venous Gram Stain - Final TEST NOT PERFORMED 09/16/18 09:30 Blood-Venous Blood Culture - Final NO GROWTH AFTER 5 DAYS 09/16/18 09:30 Blood-Venous Gram Stain - Final TEST NOT PERFORMED 09/16/18 19:20 Pleural Fluid Gram Stain - Final 09/16/18 19:20 Pleural Fluid Anaerobic Culture - Final NO ANAEROBES ISOLATED. 09/16/18 19:20 Pleural Fluid Body Fluid Culture - Final No growth. 09/16/18 19:20 Other: Please Indicate Fungal Culture - Preliminary 09/16/18 19:20 Other: Please Indicate Mycobacterial Culture - Preliminary 09/16/18 18:53 Urine,Clean Catch Urine Culture - Final No Growth (<1,000 CFU/ML) Most Recent Lab Values WBC 5.8 10^3/uL (4.5-11.0) 09/21/18 06:30 RBC 4.65 10^6/uL (3.5-6.1) 09/21/18 06:30 Hgb 14.0 g/dL (14.0-18.0) 09/21/18 06:30 Hct 42.2 % (42.0-52.0) 09/21/18 06:30 MCV 90.8 fl (80.0-105.0) 09/21/18 06:30 MCH 30.1 pg (25.0-35.0) 09/21/18 06:30 MCHC 33.2 g/dl (31.0-37.0) 09/21/18 06:30 RDW 13.0 % (11.5-14.5) 09/21/18 06:30 Plt Count 198 10^3/uL (120.0-450.0) 09/21/18 06:30 MPV 11.6 fl (7.0-11.0) H 09/21/18 06:30 Gran % 66.6 % (50.0-68.0) 09/21/18 06:30 Lymph % (Auto) 21.6 % (22.0-35.0) L 09/21/18 06:30 Gaines % (Auto) 8.4 % (1.0-6.0) H 09/21/18 06:30 Eos % (Auto) 3.1 % (1.5-5.0) 09/21/18 06:30 Baso % (Auto) 0.3 % (0.0-3.0) 09/21/18 06:30 Gran # 3.87 (1.4-6.5) 09/21/18 06:30 Lymph # (Auto) 1.3 (1.2-3.4) 09/21/18 06:30 Gaines # (Auto) 0.5 (0.1-0.6) 09/21/18 06:30 Eos # (Auto) 0.2 (0.0-0.7) 09/21/18 06:30 Baso # (Auto) 0.02 K/mm3 (0.0-2.0) 09/21/18 06:30 PT 16.1 SECONDS (9.4-12.5) H 09/16/18 09:20 INR 1.39 09/16/18 09:20 APTT 28.4 Seconds (25.1-36.5) 09/16/18 09:20 pO2 33 mm/Hg (30-55) 09/16/18 13:20 VBG pH 7.29 (7.32-7.43) L 09/16/18 13:20 VBG pCO2 56.0 (40-60) 09/16/18 13:20 VBG HCO3 26.9 mmol/l (21-28) 09/16/18 13:20 VBG Total CO2 28.6 mmol.L (22-28) H 09/16/18 13:20 VBG O2 Sat (Calc) 63.6 % (40-65) 09/16/18 13:20 VBG Base Excess -0.7 mmol/L (0.0-2.0) L 09/16/18 13:20 VBG Potassium 4.2 mmol/L (3.6-5.2) 09/16/18 13:20 Sodium 131.0 mmol/L (132-148) L 09/16/18 13:20 Chloride 95.0 mmol/L (98-107) L 09/16/18 13:20 Glucose 125 mg/dl (75-110) H 09/16/18 13:20 Lactate 2.4 mmol/L (0.7-2.1) H 09/16/18 13:20 FiO2 21.0 % 09/16/18 13:20 Sodium 132 mmol/L (132-148) 09/21/18 06:30 Potassium 4.4 mmol/L (3.6-5.0) 09/21/18 06:30 Chloride 91 mmol/L (98-107) L 09/21/18 06:30 Carbon Dioxide 35 mmol/L (21-33) H 09/21/18 06:30 Anion Gap 11 (10-20) 09/21/18 06:30 BUN 20 mg/dL (7-21) 09/21/18 06:30 Creatinine 1.1 mg/dl (0.8-1.5) 09/21/18 06:30 Est GFR ( Amer) > 60 09/21/18 06:30 Est GFR (Non-Af Amer) > 60 09/21/18 06:30 Random Glucose 92 mg/dL (70-110) 09/21/18 06:30 Hemoglobin A1c 6.0 % (4.2-6.5) 09/16/18 17:00 Calcium 9.0 mg/dL (8.4-10.5) 09/21/18 06:30 Phosphorus 4.4 mg/dL (2.5-4.5) 09/21/18 06:30 Magnesium 1.9 mg/dL (1.7-2.2) 09/21/18 06:30 Total Bilirubin 1.4 mg/dL (0.2-1.3) H 09/21/18 06:30 AST 80 U/L (17-59) H 09/21/18 06:30 ALT 71 U/L (7-56) H 09/21/18 06:30 Alkaline Phosphatase 90 U/L (38-126) 09/21/18 06:30 Lactate Dehydrogenase 473 U/L (333-699) 09/21/18 06:30 Troponin I 0.04 ng/mL 09/16/18 21:20 NT-Pro-B Natriuret Pep 8510 pg/mL (0-450) H 09/16/18 09:20 Total Protein 6.4 g/dL (5.8-8.3) 09/21/18 06:30 Albumin 3.4 g/dL (3.0-4.8) 09/21/18 06:30 Globulin 2.9 gm/dL 09/21/18 06:30 Albumin/Globulin Ratio 1.2 (1.1-1.8) 09/21/18 06:30 Triglycerides 47 mg/dL (35-160) 09/17/18 06:00 Cholesterol 119 mg/dL (130-200) L 09/17/18 06:00 LDL Cholesterol Direct 80 mg/dL (0-129) 09/17/18 06:00 HDL Cholesterol 36 mg/dL (29-60) 09/17/18 06:00 Lipase 230 U/L (23-300) 09/16/18 09:20 Alpha Fetoprotein 2.4 ng/mL (0.0-7.5) 09/18/18 06:00 Procalcitonin < 0.05 NG/ML (0.19-0.49) L 09/16/18 17:00 TSH 3rd Generation 1.17 mIU/mL (0.46-4.68) 09/16/18 17:00 Venous Blood Potassium 4.2 mmol/L (3.6-5.2) 09/16/18 13:20 Urine Color Yellow (YELLOW) 09/16/18 18:53 Urine Appearance Clear (CLEAR) 09/16/18 18:53 Urine pH 5.5 (4.7-8.0) 09/16/18 18:53 Ur Specific [place] <= 1.005 (1.005-1.035) 09/16/18 18:53 Urine Protein Negative mg/dL (<30 mg/dL) 09/16/18 18:53 Urine Glucose (UA) Negative mg/dL (NEGATIVE) 09/16/18 18:53 Urine Ketones Negative mg/dL (NEGATIVE) 09/16/18 18:53 Urine Blood Negative (NEGATIVE) 10/31/18 18:53 Urine Nitrate Negative (NEGATIVE) 09/16/18 18:53 Urine Bilirubin Negative (NEGATIVE) 09/16/18 18:53 Urine Urobilinogen 0.2 E.U./dL (<1 E.U./dL) 09/16/18 18:53 Ur Leukocyte Esterase Negative Solitario/uL (NEGATIVE) 09/16/18 18:53 Fluid Source Pleural 09/16/18 19:20 Fluid Appearance Sl cloudy (CLEAR) 09/16/18 19:20 Fluid WBC 508.0 /uL (0.0-300.0) H 09/16/18 19:20 Fluid RBC 598.0 /uL (0.0-0.0) H 09/16/18 19:20 Fluid Tot Cell Count 100 (0-0) H 09/16/18 19:20 Fluid Neutrophils 10.8 % (0-0) H 09/16/18 19:20 Fluid Lymphocytes 89.2 % (0-0) H 09/16/18 19:20 Fld Monocyte/Macrophag TEST NOT PERFORMED 09/16/18 19:20 Fluid Comment TEST NOT PERFORMED 09/16/18 19:20 Pleural pH 7.5 09/16/18 19:20 Pleural Total Protein <3.0 g/dL 09/16/18 19:20 Pleural LDH 70 U/L 09/16/18 19:20 Pleural Glucose 151 mg/dL 09/16/18 19:20 Hepatitis A IgM Ab Negative (NEGATIVE) 09/17/18 06:00 Hep Bs Antigen Negative (NEGATIVE) 09/17/18 06:00 Hep B Core IgM Ab Negative (NEGATIVE) 09/17/18 06:00 Hepatitis C Antibody Negative (NEGATIVE) 09/17/18 06:00 - Hospital Course Hospital Course: On Presentation: Mr. Arias is a 78 year old male with PMH of HTN, alcoholic liver cirrhosis, intermittent angina (stress test in 2016 was normal), and BPH presented to [facility] with a complaint of b/l LE swelling worsening over the past two months. He saw his PMD, Dr. May, about this problem who was concerned and recommended he c ome to ED. He admits to a history of heavy drinking, approximately 4-5 beers per day and/or hard liquor nearly everyday since he was 9 years old. He states that he also has chest discomfort that has been worsening over the past few days. He describes the pain as a dull, achy type pain that is intermittent and worse with exertion. He also admits to SOB with exertion. He also endorses dry cough, or thopnea, PND, and gross hematuria. Otherwise he denies fever, chills, palpitations, nausea/vomiting/diarrhea, peripheral numbness tingling, BENTLEY, vision changes, or dysuria. Further evaluation in the ED revealed patient is in AFib. He denies hx of AFib, and states he saw Dr. Molina in the past for stress test but has otherwise had no heart problems. During 6 day hospital course, patient was treated for CHF Exacerbation with periodic episodes of AFib likely 2/2 worsening alcohol induced cardiomyopathy, acute liver dysfunction likely 2/2 alcoholic hepatitis, B/l Pleural Effusions Likely 2/2 component of both liver dysfunction, and CHF exacerbation s/p thoracentesis and hypokalemia. Thoracentesis fluid showed transudate. Cytology sent for review. Pleural fluid culture is negative. Echo showed moderately impaired LV function LVEF 25-30%, mild to moderate mitral regurgitation, mild tricuspid regurgitation RVSP 33 mmHg. Cardiac cath on 09/21/18 showed non obstructive CAD, very distal LAD at apex 90% not suitable for PCI and milt to moderate disease in mid RCA. Patient started on eliquis after cardiac cath. Risks explained to patient of bleeding while on eliquis, and the danger of continued alcohol consumption. Patient to get outpatient EGD. Discharge Exam - Head Exam Head Exam: NORMAL INSPECTION, NORMOCEPHALIC - Eye Exam Eye Exam: EOMI Pupil Exam: PERRL - ENT Exam ENT Exam: Mucous Membranes Dry - Respiratory Exam Respiratory Exam: absent: Accessory Muscle Use, Respiratory Distress Additional comments: CTA B/L - Cardiovascular Exam Cardiovascular Exam: REGULAR RHYTHM, +S1, +S2 - GI/Abdominal Exam GI & Abdominal Exam: Normal Bowel Sounds. absent: Distended, Firm - Back Exam Back exam: NORMAL INSPECTION - Neurological Exam Neurological exam: Alert, Oriented x3 - Skin Skin Exam: Normal Color, Warm Discharge Plan - Discharge Medications Prescriptions: Apixaban [Eliquis] 5 mg PO BID 14 Days #28 tablet RX: Carvedilol [Coreg] 3.125 mg PO BID 14 Days #28 tab RX: Digoxin 0.125 mg PO 1400 14 Days #14 tab RX: Furosemide [Lasix] 40 mg PO DAILY #14 tab RX: Lisinopril [Zestril] 2.5 mg PO DAILY 14 Days #14 tab RX: Spironolactone [Aldactone] 25 mg PO DAILY 14 Days #14 tab RX: Verapamil [Calan Tab] 40 mg PO TID 14 Days #42 tab - Follow Up Plan Condition: FAIR Disposition: HOME/ ROUTINE Instructions: Atrial Fibrillation (DC), Shortness of Breath (Dyspnea) (DC), Cirrhosis (DC) Additional Instructions: Please follow up with your primary care doctor, Dr. May, within 3-5 days of discharge, and get a referral to f/u with Dr. Moore. You will need blood work done with your primary care doctor to check your digoxin level (this is a new medication that you have been started on). You have also been started on a water pill called lasix. You will need blood work with your primary care doctor to monitor your electrolytes. You will need to get any refills needed on your new medications from your primary care doctor. Please follow up with your associate merchandise planner, Dr. Moore with 5-7 days of discharge. Please follow up with your truck chauffeur doctor, Dr. Leigh with 5-7 days of discharge for your liver cirrhosis. You will need an EGD done. You will also need hepatitis A and B vaccines. STOP YOUR HOME ASPIRIN AND COZAAR. Please stop all alcohol use. You are now on a blood thinner and are at high risk for bleeding. Alcohol can increase this risk. Please return to the ED for any new or worsening of symptoms. Please follow a low sodium diet. Referrals: Karan Moore MD [Staff Provider] - Felipe May MD [Primary Care Provider] - Balwinder Leigh MD [Staff Provider] - <CliffordLarissa R - Last Filed: 09/23/18 20:56> Provider - Provider Date of Admission: 09/16/18 12:31 Attending physician: Cathi Barraza MD Primary care physician: Felipe May MD Hospital Course - Lab Results Lab Results: Micro Results 09/16/18 10:00 Blood-Venous Blood Culture - Final NO GROWTH AFTER 5 DAYS 09/16/18 10:00 Blood-Venous Gram Stain - Final TEST NOT PERFORMED 09/16/18 09:30 Blood-Venous Blood Culture - Final NO GROWTH AFTER 5 DAYS 10/31/18 09:30 Blood-Venous Gram Stain - Final TEST NOT PERFORMED 09/16/18 19:20 Pleural Fluid Gram Stain - Final 09/16/18 19:20 Pleural Fluid Anaerobic Culture - Final NO ANAEROBES ISOLATED. 09/16/18 19:20 Pleural Fluid Body Fluid Culture - Final No growth. 09/16/18 19:20 Other: Please Indicate Fungal Culture - Preliminary 09/16/18 19:20 Other: Please Indicate Mycobacterial Culture - Preliminary 09/16/18 18:53 Urine,Clean Catch Urine Culture - Final No Growth (<1,000 CFU/ML) Most Recent Lab Values WBC 5.8 10^3/uL (4.5-11.0) 09/21/18 06:30 RBC 4.65 10^6/uL (3.5-6.1) 09/21/18 06:30 Hgb 14.0 g/dL (14.0-18.0) 09/21/18 06:30 Hct 42.2 % (42.0-52.0) 09/21/18 06:30 MCV 90.8 fl (80.0-105.0) 09/21/18 06:30 MCH 30.1 pg (25.0-35.0) 09/21/18 06:30 MCHC 33.2 g/dl (31.0-37.0) 09/21/18 06:30 RDW 13.0 % (11.5-14.5) 09/21/18 06:30 Plt Count 198 10^3/uL (120.0-450.0) 09/21/18 06:30 MPV 11.6 fl (7.0-11.0) H 09/21/18 06:30 Gran % 66.6 % (50.0-68.0) 09/21/18 06:30 Lymph % (Auto) 21.6 % (22.0-35.0) L 09/21/18 06:30 Gaines % (Auto) 8.4 % (1.0-6.0) H 09/21/18 06:30 Eos % (Auto) 3.1 % (1.5-5.0) 09/21/18 06:30 Baso % (Auto) 0.3 % (0.0-3.0) 09/21/18 06:30 Gran # 3.87 (1.4-6.5) 09/21/18 06:30 Lymph # (Auto) 1.3 (1.2-3.4) 09/21/18 06:30 Gaines # (Auto) 0.5 (0.1-0.6) 09/21/18 06:30 Eos # (Auto) 0.2 (0.0-0.7) 09/21/18 06:30 Baso # (Auto) 0.02 K/mm3 (0.0-2.0) 09/21/18 06:30 PT 16.1 SECONDS (9.4-12.5) H 09/16/18 09:20 INR 1.39 09/16/18 09:20 APTT 28.4 Seconds (25.1-36.5) 09/16/18 09:20 pO2 33 mm/Hg (30-55) 09/16/18 13:20 VBG pH 7.29 (7.32-7.43) L 09/16/18 13:20 VBG pCO2 56.0 (40-60) 09/16/18 13:20 VBG HCO3 26.9 mmol/l (21-28) 09/16/18 13:20 VBG Total CO2 28.6 mmol.L (22-28) H 09/16/18 13:20 VBG O2 Sat (Calc) 63.6 % (40-65) 09/16/18 13:20 VBG Base Excess -0.7 mmol/L (0.0-2.0) L 09/16/18 13:20 VBG Potassium 4.2 mmol/L (3.6-5.2) 09/16/18 13:20 Sodium 131.0 mmol/L (132-148) L 09/16/18 13:20 Chloride 95.0 mmol/L (98-107) L 09/16/18 13:20 Glucose 125 mg/dl (75-110) H 09/16/18 13:20 Lactate 2.4 mmol/L (0.7-2.1) H 09/16/18 13:20 FiO2 21.0 % 09/16/18 13:20 Sodium 132 mmol/L (132-148) 09/21/18 06:30 Potassium 4.4 mmol/L (3.6-5.0) 09/21/18 06:30 Chloride 91 mmol/L (98-107) L 09/21/18 06:30 Carbon Dioxide 35 mmol/L (21-33) H 09/21/18 06:30 Anion Gap 11 (10-20) 09/21/18 06:30 BUN 20 mg/dL (7-21) 09/21/18 06:30 Creatinine 1.1 mg/dl (0.8-1.5) 09/21/18 06:30 Est GFR ( Amer) > 60 09/21/18 06:30 Est GFR (Non-Af Amer) > 60 09/21/18 06:30 Random Glucose 92 mg/dL (70-110) 09/21/18 06:30 Hemoglobin A1c 6.0 % (4.2-6.5) 09/16/18 17:00 Calcium 9.0 mg/dL (8.4-10.5) 09/21/18 06:30 Phosphorus 4.4 mg/dL (2.5-4.5) 09/21/18 06:30 Magnesium 1.9 mg/dL (1.7-2.2) 09/21/18 06:30 Total Bilirubin 1.4 mg/dL (0.2-1.3) H 09/21/18 06:30 AST 80 U/L (17-59) H 09/21/18 06:30 ALT 71 U/L (7-56) H 09/21/18 06:30 Alkaline Phosphatase 90 U/L (38-126) 09/21/18 06:30 Lactate Dehydrogenase 473 U/L (333-699) 09/21/18 06:30 Troponin I 0.04 ng/mL 09/16/18 21:20 NT-Pro-B Natriuret Pep 8510 pg/mL (0-450) H 09/16/18 09:20 Total Protein 6.4 g/dL (5.8-8.3) 09/21/18 06:30 Albumin 3.4 g/dL (3.0-4.8) 09/21/18 06:30 Globulin 2.9 gm/dL 09/21/18 06:30 Albumin/Globulin Ratio 1.2 (1.1-1.8) 11/05/18 06:30 Triglycerides 47 mg/dL (35-160) 09/17/18 06:00 Cholesterol 119 mg/dL (130-200) L 09/17/18 06:00 LDL Cholesterol Direct 80 mg/dL (0-129) 09/17/18 06:00 HDL Cholesterol 36 mg/dL (29-60) 09/17/18 06:00 Lipase 230 U/L (23-300) 09/16/18 09:20 Alpha Fetoprotein 2.4 ng/mL (0.0-7.5) 09/18/18 06:00 Procalcitonin < 0.05 NG/ML (0.19-0.49) L 09/16/18 17:00 TSH 3rd Generation 1.17 mIU/mL (0.46-4.68) 09/16/18 17:00 Venous Blood Potassium 4.2 mmol/L (3.6-5.2) 09/16/18 13:20 Urine Color Yellow (YELLOW) 09/16/18 18:53 Urine Appearance Clear (CLEAR) 09/16/18 18:53 Urine pH 5.5 (4.7-8.0) 09/16/18 18:53 Ur Specific [place] <= 1.005 (1.005-1.035) 09/16/18 18:53 Urine Protein Negative mg/dL (<30 mg/dL) 09/16/18 18:53 Urine Glucose (UA) Negative mg/dL (NEGATIVE) 09/16/18 18:53 Urine Ketones Negative mg/dL (NEGATIVE) 09/16/18 18:53 Urine Blood Negative (NEGATIVE) 09/16/18 18:53 Urine Nitrate Negative (NEGATIVE) 09/16/18 18:53 Urine Bilirubin Negative (NEGATIVE) 09/16/18 18:53 Urine Urobilinogen 0.2 E.U./dL (<1 E.U./dL) 09/16/18 18:53 Ur Leukocyte Esterase Negative Solitario/uL (NEGATIVE) 09/16/18 18:53 Fluid Source Pleural 09/16/18 19:20 Fluid Appearance Sl cloudy (CLEAR) 09/16/18 19:20 Fluid WBC 508.0 /uL (0.0-300.0) H 09/16/18 19:20 Fluid RBC 598.0 /uL (0.0-0.0) H 09/16/18 19:20 Fluid Tot Cell Count 100 (0-0) H 09/16/18 19:20 Fluid Neutrophils 10.8 % (0-0) H 09/16/18 19:20 Fluid Lymphocytes 89.2 % (0-0) H 09/16/18 19:20 Fld Monocyte/Macrophag TEST NOT PERFORMED 09/16/18 19:20 Fluid Comment TEST NOT PERFORMED 09/16/18 19:20 Pleural pH 7.5 09/16/18 19:20 Pleural Total Protein <3.0 g/dL 09/16/18 19:20 Pleural LDH 70 U/L 09/16/18 19:20 Pleural Glucose 151 mg/dL 09/16/18 19:20 Hepatitis A IgM Ab Negative (NEGATIVE) 09/17/18 06:00 Hep Bs Antigen Negative (NEGATIVE) 09/17/18 06:00 Hep B Core IgM Ab Negative (NEGATIVE) 09/17/18 06:00 Hepatitis C Antibody Negative (NEGATIVE) 09/17/18 06:00 Attending/Attestation - Attestation I have personally seen and examined this patient.: Yes I have fully participated in the care of the patient.: Yes I have reviewed all pertinent clinical information, including history, physical exam and plan: Yes Notes (Text): Patient seen and examined by me with resident at 1:25PM on 09/21/18. Case including discharge plan discussed with resident. Agree with above with following additions/corrections. Patient is 78 year old male with past medical history significant for hypertension, alcoholic liver cirrhosis, intermittent angina, and BPH that presented to the emergency room with worsening lower extremity edema for 2 months. Please see H&P for full details. Patient was admitted with lower extremity edema, chest discomfort, new onset atrial fibrillation, gross hematuria, bilateral pleural effusions, cirrhosis, and abdominal bloating. Patient was started on Lasix. GI was consulted. Cardiology was consulted. Patient was initially found to be in a-fib on admission and was started on Cardizem drip and therapeutic lovenox. BNP was 8510. 2D echo per associate merchandise planner showed left ventricle is normal size, mild concentric left ventricular hypertrophy, systolic function is moderately impaired with EF of 25-30%, trivial AR, mitral regurgitation is mild to moderate, no vegetation or thrombus noted. Cardizem drip was stopped and and verapamil was started per cardiology. Patient was also started on coreg, aldactone, digoxin, and milrinone drip. CT abd/pelvis on 09/16/18 per radiologist showed minimal ascites and subcutaneous edema, moderate size right pleural effusion with adjacent consolidation in the right lower lobe, small left pleural effusion. Chest CT on 09/16/18 per radiologist showed moderate size right effusion and a small left effusion, small amount of consolidation to the right of the effusion. Patient had thoracentesis. Patient was placed on empiric rocephin and Zithromax. Chest xray on 09/18/18 per radiologist showed small right pleural effusion. Bilateral lower extremity venous dopplers were negative for DVT. Lower extremity edema improved with diuresis. Patient was also found to have jaundice and elevated LFTS secondary to chronic alcohol abuse and cirrhosis. GI recommended outpatient EGD. Dark urine improved. Urine was negative for infection. Patient had hypokalemia which resolved with replacement. 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 Patient was cleared for discharge by cardiology on Eliquis, Coreg, Digoxin, Lasix, Lisinopril, Aldactone, and Verapamil. Patient was feeling much better and was discharged home. Risks of Eliquis including increased risk of bleeding was discussed with patient and patients daughter. Patient agreed to take medication. All instructions were discussed with patients daughter at bedside prior to discharge. On day of discharge, patient stated he was feeling much better. Patient was ambulating well. Edema in lower extremities had improved. No chest pain or palpitations. No nausea, vomiting, or abdominal pain. No headaches or dizziness. No lightheadedness. No fevers or chills. No dysuria. No diarrhea or constipation. Physical exam: General: Awake and alert sitting up in chair in bed in no acute distress HEENT: Normocephalic atraumatic. Extraocular muscles intact. Pupils equal and reactive. No scleral icterus. Oropharynx is pink and moist. No pharyngeal erythema or exudate appreciated. Neck is supple. Cardiovascular: Irregularly irregular rhythm. No murmurs, rubs, or gallops appreciated Pulmonary: Normal respiratory effort. No rhonchi, rales or wheezing appreciated. Gastrointestinal: Soft, nondistended. Nontender. Positive bowel sounds all 4 quadrants, no guarding. Musculoskeletal: Moves all extremities, no calf tenderness. No CVA tenderness. Positive bilateral lower extremity pitting edema. Central nervous system: AAOx3. CN2-12 grossly intact. 5/5 muscle strength all extremities. Dermatologic: Skin warm and dry. Please see chart for full details. Follow up instructions: Patient to follow up with primary care doctor within 3- 5 days. Patient will need blood work done with your primary care doctor to check his digoxin level. Patient will need blood work with your primary care doctor to monitor electrolytes as patient is on Lasix. Patient will need to get any refills needed new medications from primary care doctor. Patient to follow up with his associate merchandise planner, Dr. Moore with 5-7 days of discharge. Patient to follow up with his truck chauffeur doctor, Dr. Leigh within 5-7 days of discharge for liver cirrhosis. Patient will need an EGD done. Patient to stop home ASA and Cozaar. Patient to stop all alcohol use. All instructions explained to patient and patients daughter at bedside in detail. Patient both understands and agrees to all instructions. Written instructions also given. Time spent in discharging the patient including chart review, medication reconciliation, discussion with the patient and patients daughter at bedside, bacteriologist medical, consultants, and nursing staff was 45 minutes.
== END 2018-09-21 20:52 | disposition home or self-care (01) | DRG 287 ==
LOC: ED 08:32 → ERH 12:31 → 2RSO 14:22
PROVIDERS: ADMIT Internal Medicine; ATTEND Internal Medicine
PROC: 0W993ZZ Drainage of Right Pleural Cavity, Percutaneous Approach (ICD-10-PCS; principal; 2018-09-16 17:15)
PROC: 4A023N7 Measurement of Cardiac Sampling and Pressure, Left Heart, Percutaneous Approach (ICD-10-PCS; 2018-09-21)
PROC: B2151ZZ Fluoroscopy of Left Heart using Low Osmolar Contrast (ICD-10-PCS; 2018-09-21)
PROC: B2111ZZ Fluoroscopy of Multiple Coronary Arteries using Low Osmolar Contrast (ICD-10-PCS; 2018-09-21)
DX: I11.0 Hypertensive heart disease with heart failure (principal); J90 Pleural effusion, not elsewhere classified; J98.11 Atelectasis; K76.6 Portal hypertension; I50.23 Acute on chronic systolic (congestive) heart failure; I25.119 Atherosclerotic heart disease of native coronary artery with unspecified angina pectoris; I42.6 Alcoholic cardiomyopathy; K70.31 Alcoholic cirrhosis of liver with ascites; K70.11 Alcoholic hepatitis with ascites; N40.0 Benign prostatic hyperplasia without lower urinary tract symptoms; F10.10 Alcohol abuse, uncomplicated; I48.0 Paroxysmal atrial fibrillation; M32.9 Systemic lupus erythematosus, unspecified; E87.6 Hypokalemia; I08.1 Rheumatic disorders of both mitral and tricuspid valves; N50.89 Other specified disorders of the male genital organs; R31.0 Gross hematuria; R14.0 Abdominal distension (gaseous); E78.5 Hyperlipidemia, unspecified; R06.01 Orthopnea; Z79.02 Long term (current) use of antithrombotics/antiplatelets; Z79.82 Long term (current) use of aspirin

== ENCOUNTER 2018-12-30 11:36 | Outpatient (CLI) | payer MEDICARE | END 2018-12-30 11:37 | disposition home or self-care (01) | LOC: RAD 11:36 | DX: M79.675 Pain in left toe(s) (principal) ==

== ENCOUNTER 2019-01-05 13:29 | Outpatient (CLI) | payer MEDICARE | END 2019-01-05 13:30 | disposition home or self-care (01) | LOC: RAD 13:29 ==

== ENCOUNTER 2019-01-12 08:44 | Inpatient (IN) | payer MEDICARE, OTHER ==
[2019-01-12 09:09] VITALS: RESP 18
--- NOTE | 2019-01-12 09:37 | ED PDOC ---
Arrival/HPI - General Chief Complaint: Lower Extremity Problem/Injury Historian: Patient, Family - History of Present Illness Narrative History of Present Illness (Text): 01/12/19 09:33 78 y/o male, pmh including htn/cirrhosis/bph/a.fibb, nkda, send in by manager government dr. oneil for lt. foot heel toe ulcer x 1 month and need admission for IV Telfaro q12hr. Pt. has calcified blood vessel disease on the LLE, no extremity coldness, has lt. foot 1st digit great toe ulcer wound x 1 month, never healed, send to the ER as he has leg wound infection, advised to come to the ER for admission for IV telfaro with ID Boghossian/vascular consult Dr. River for c onsult. Pt. has no fever or chills, no night sweat, no rash, no dizziness, no change in vision, no other medical or psychological complaints. 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 ASCITES,SCROTAL EDEMA - Musculoskeletal/Rheumatological Hx Arthritis: Yes - Gastrointestinal Hx Gastrointestinal Disorders: Yes Hx Liver Failure: Yes (CIRRHOSIS OF LIVER.) - Genitourinary/Gynecological Hx Genitourinary Disorders: No - Psychiatric Hx Psychophysiologic Disorder: No Hx Substance Use: No - Surgical History Hx Cardiac Catheterization: No Hx Coronary Artery Bypass Graft: No - Anesthesia Hx Anesthesia Reactions: No Family/Social History - Physician Review Nursing Documentation Reviewed: Yes Family/Social History: Unknown Family HX Smoking Status: Unknown If Ever Smoked Hx Alcohol Use: No Hx Substance Use: No Allergies/Home Meds Allergies/Adverse Reactions: Allergies No Known Allergies Allergy (Verified 09/16/18 15:21) Home Medications: Home Meds Medication Instructions Recorded Confirmed Furosemide [Lasix] 40 mg PO BID 01/12/19 01/12/19 Tamsulosin [Flomax] 0.4 mg PO DAILY 01/12/19 01/12/19 Review of Systems - Review of Systems Constitutional: absent: Fatigue, Fevers Eyes: absent: Vision Changes ENT: absent: Hearing Changes Respiratory: absent: SOB, Cough Cardiovascular: absent: Chest Pain Gastrointestinal: absent: Abdominal Pain, Diarrhea, Nausea, Vomiting Skin: Skin Lesions, Cellulitis. absent: Rash, Pruritis, Ulcer Neurological: absent: Headache, Dizziness Psychiatric: absent: Anxiety, Depression, Suicidal Ideation Physical Exam Vital Signs Reviewed: Yes Vital Signs Temp Pulse Resp BP Pulse Ox 01/12/19 09:03 98.6 F 80 18 130/67 99 Temperature: Afebrile Blood Pressure: Normal Pulse: Regular Respiratory Rate: Normal Appearance: Positive for: Well-Appearing, Non-Toxic, Comfortable Pain Distress: Mild Mental Status: Positive for: Alert and Oriented X 3 - Systems Exam Head: Present: Atraumatic, Normocephalic Pupils: Present: PERRL Extroacular Muscles: Present: EOMI Conjunctiva: Present: Normal Mouth: Present: Moist Mucous Membranes Neck: Present: Normal Range of Motion Respiratory/Chest: Present: Clear to Auscultation, Good Air Exchange. No: Respiratory Distress, Accessory Muscle Use Cardiovascular: Present: Regular Rate and Rhythm, Normal S1, S2. No: Murmurs Abdomen: No: Tenderness, Distention, Peritoneal Signs Back: Present: Normal Inspection Upper Extremity: Present: Normal Inspection. No: Cyanosis, Edema Lower Extremity: Present: Normal Inspection, Other (Lt. foot: visible 1st digit superficial to moderate ulcerated wound noted, no fluctuant abscess, no streaki ng but there is mild redness, foot is warmth with neurovascular intact. ). No: Edema Neurological: Present: GCS=15, CN II-XII Intact, Speech Normal Skin: Present: Warm, Dry, Normal Color. No: Rashes Psychiatric: Present: Alert, Oriented x 3, Normal Insight, Normal Concentration Medical Decision Making ED Course and Treatment: 01/12/19 09:39 -labs/wound and blood cultures -ekg -cxr -iv telfaro -routine consults ordered for dr. hobbs and dr. river as routine consult request by dr. oneil. -admission for IV antibiotic, pmd is dr. burt, will be admitted as hospitalist service. 01/12/19 11:43 -EKG: Chronic A.fibb @ 78 BPM, no acute ST or T wave changes compared with pr evious ekgs. -CXR: ER wet read: no active disease -LLE venuous doppler: as per preliminary report, no acute DVT -Lt. foot xray: ER wet read: +calcaneal spur, no fracture/dislocation/subluxation, +DJD, calcified vessels noted -Labs are non-significant -ESR 32 -I discussed labs/radiology results with the patient. 01/12/19 12:09 -I spoke to DR. Jaun Horton, hospitalist, discussed about the case/labs/radiology results, agreed to admit to her service and she would follow up. - RAD Interpretation Radiology Orders: 01/12/19 09:31 CHEST PORTABLE [RAD] Stat FOOT LEFT GREAT TOE ROUTINE [RAD] Stat DUPLEX LOWER EXTRM VEIN LEFT [US] Stat Chest xray: Date of service: 01/12/2019 HISTORY: admission, medical clearance COMPARISON: 09/18/2018 FINDINGS: LUNGS: No active pulmonary disease. PLEURA: No significant pleural effusion identified, no pneumothorax apparent. CARDIOVASCULAR: No aortic atherosclerotic calcification present. Normal cardiac size. No pulmonary vascular congestion. OSSEOUS STRUCTURES: No significant abnormalities. VISUALIZED UPPER ABDOMEN: Normal. OTHER FINDINGS: None. IMPRESSION: No active disease. Lt. foot xray: PROCEDURE: Radiographs of the left great toe. TECHNIQUE:: AP radiograph of the left foot, with oblique and lateral view of the left great toe. COMPARISON: None. FINDINGS: BONES: No fracture. Plantar calcaneal spur. JOINTS: Normal. SOFT TISSUES: Vascular calcification noted OTHER FINDINGS: None. IMPRESSION: No acute fracture. LLE venuous doppler: PROCEDURE: Left lower extremity venous US HISTORY: Leg pain and swelling. Evaluate for DVT. PHYSICIAN(S): Uri River MD. TECHNIQUE: Duplex sonography and color-flow Doppler with graded compression were used to evaluate the deep venous system of the left lower extremity. The exam is somewhat limited by edema FINDINGS: The visualized deep venous system of the left lower extremity is sonographically normal and compressible. Normal wave forms and augmentation are seen. There is no sonographic evidence for deep venous thrombosis in the visualized segments of the left lower extremity. IMPRESSION: 1. No sonographic evidence for deep venous thrombosis in the visualized segments of the left lower extremity. Claims Specialist: Radiologist - EKG Interpretation EKG Interpretation (Text): 01/12/19 11:43 Chronic A.fibb @ 78 BPM, no acute ST or T wave changes compared with previous ekgs. Interpreted by ED Physician: Yes Type: 12 lead EKG Comparison: Com.w/previous EKG - Medication Orders Current Medication Orders: Ceftaroline Fosamil 400 mg/ (Sodium Chloride) 100 mls @ 100 mls/hr IVPB STAT STA; Protocol Stop: 01/12/19 10:30 - PA / BREAK UP WORKER / Resident Statement / has reviewed & agrees with the documentation as recorded. Disposition/Present on Arrival - Present on Arrival Any Indicators Present on Arrival: No History of DVT/PE: No History of Uncontrolled Diabetes: No Urinary Catheter: No History of Decub. Ulcer: No History Surgical Site Infection Following: None - Disposition Have Diagnosis and Disposition been Completed?: Yes Diagnosis: Foot ulcer, Cellulitis Disposition: HOSPITALIZED Disposition Time: 09:42 Patient Plan: Admission, Observation Patient Problems: Current Active Problems Problem Status Onset Foot ulcer Acute Cellulitis Acute Condition: STABLE
[2019-01-12 10:01] LABS: BASO # 0.04 K/mm3 (0.0-2.0); BASO % 0.6 % (0.0-3.0); EOS # 0.1 (0.0-0.7); EOS % 1.3 % (1.5-5.0); HEMOGLOBIN 11.4 g/dL (14.0-18.0); LYMPH # 1.5 (1.2-3.4); LYMPH % 21.3 % (22.0-35.0); MEAN CELL VOLUME 89.5 fl (80.0-105.0); MEAN CORPUSCULAR HEMOGLOBIN 29.8 pg (25.0-35.0); MEAN CORPUSCULAR HGB CONC 33.3 g/dl (31.0-37.0); MEAN PLATELET VOLUME 10.1 fl (7.0-11.0); MONO # 0.4 (0.1-0.6); RBC 3.82 10^6/uL (3.5-6.1); RED CELL DISTRIBUTION WIDTH 12.7 % (11.5-14.5)
[2019-01-12 10:07] LABS: ALB/GLOB RATIO 1.3 (1.1-1.8); ALBUMIN 4.2 g/dL (3.0-4.8); ALT/SGPT 10 U/L (7-56); AST/SGOT 18 U/L (17-59); BLOOD UREA NITROGEN 21 mg/dL (7-21); CALCIUM 9.5 mg/dL (8.4-10.5); GFR NON-AFRICAN AMERICAN > 60
--- NOTE | 2019-01-12 10:46 | US ---
PROCEDURE: Left lower extremity venous US HISTORY: Leg pain and swelling. Evaluate for DVT. PHYSICIAN(S): Uri Dozier MD. TECHNIQUE: Duplex sonography and color-flow Doppler with graded compression were used to evaluate the deep venous system of the left lower extremity. The exam is somewhat limited by edema FINDINGS: The visualized deep venous system of the left lower extremity is sonographically normal and compressible. Normal wave forms and augmentation are seen. There is no sonographic evidence for deep venous thrombosis in the visualized segments of the left lower extremity. IMPRESSION: 1. No sonographic evidence for deep venous thrombosis in the visualized segments of the left lower extremity.
[2019-01-12] MEDS ORDERED: Morphine 4 mg/ml ISec IVP STA (12:11)
--- NOTE | 2019-01-12 13:22 | CP.PCM.HP ---
<Mitch Reinoso - Last Filed: 01/12/19 14:34> History of Present Illness - History of Present Illness History of Present Illness: Mitch Reinoso DO, PGY-1 Hospitalist Admission History and Physical for Dr. Jaun Horton CC: L foot wound HPI: Patient is a 78 year old male with PMH of HTN, alcoholic liver cirrhosis, angina (prior normal stress test), and BPH who presents to ED at the recommendation of Dr. Jean for concern of worsening L foot wound and possible infection. Patient admits to having L foot pain worsening over the past month. He had been following with Dr. Jean for the foot pain and an ulcer on his L great toe. He was seen by Dr. Jean in the office yesterday and was told to present to ED for concern of worsening infection of this L great toe ulcer and the need for IV antibiotics. Patient states he was unable to get here yesterday, prompting him to present to ED today. He otherwise offers no complaints and denies fever/chills, CP, SOB, abdominal pain/nausea/vomiting, peripheral numbness/tingling, R leg or foot pain, or urinary complaints. PMD: Lalo. 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 Denies current or prior tobacco use. Denies other drug use. Pharmacy: [facility] [place] [facility] Present on Admission - Present on Admission Any Indicators Present on Admission: No History of DVT/PE: No History of Uncontrolled Diabetes: No Urinary Catheter: No Decubitus Ulcer Present: No Review of Systems - Constitutional Constitutional: absent: Chills, Fever - EENT Eyes: absent: Change in Vision - Cardiovascular Cardiovascular: absent: Chest Pain, Chest Pain at Rest, Dyspnea on Exertion, Palpitations, Paroxysmal Nocturnal Dyspnea - Respiratory Respiratory: absent: Cough, Dyspnea - Gastrointestinal Gastrointestinal: absent: Abdominal Pain, Nausea, Vomiting - Genitourinary Genitourinary: absent: Change in Urinary Stream, Dysuria Past Patient History - Infectious Disease Hx of Infectious Diseases: None - Past Social History Smoking Status: Unknown If Ever Smoked - CARDIAC Hx Hypertension: Yes - PULMONARY Hx Chronic Obstructive Pulmonary Disease (COPD): No - NEUROLOGICAL Hx Seizures: No - HEENT Hx HEENT Problems: Yes Hx Cataracts: Yes (BILATERAL SURGERY) 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 ASCITES,SCROTAL EDEMA - MUSCULOSKELETAL/RHEUMATOLOGICAL Hx Arthritis: Yes - GASTROINTESTINAL Hx Gastrointestinal Disorders: Yes Hx Liver Failure: Yes (CIRRHOSIS OF LIVER.) - GENITOURINARY/GYNECOLOGICAL Hx Genitourinary Disorders: No - PSYCHIATRIC Hx Psychophysiologic Disorder: No Hx Substance Use: No - SURGICAL HISTORY Hx Cardiac Catheterization: No Hx Coronary Artery Bypass Graft: No - ANESTHESIA Hx Anesthesia Reactions: No Meds Allergies/Adverse Reactions: Allergies Allergy/AdvReac Type Severity Reaction Status Date / Time No Known Allergies Allergy Verified 01/12/19 16:30 Physical Exam - Constitutional Appears: Non-toxic, No Acute Distress - Head Exam Head Exam: ATRAUMATIC, NORMOCEPHALIC - Eye Exam Eye Exam: EOMI, PERRL - ENT Exam ENT Exam: Mucous Membranes Moist - Neck Exam Neck exam: Positive for: Full Rom, Normal Inspection. Negative for: Tenderness - Respiratory Exam Respiratory Exam: Clear to Auscultation Bilateral, NORMAL BREATHING PATTERN. absent: Rales, Rhonchi, Wheezes - Cardiovascular Exam Cardiovascular Exam: REGULAR RHYTHM, RRR, +S1, +S2. absent: Diastolic murmur, Gallop, Rubs, Systolic Murmur - GI/Abdominal Exam GI & Abdominal Exam: Normal Bowel Sounds, Soft. absent: Guarding, Tenderness - Extremities Exam Extremities exam: Positive for: pedal edema (non-pitting edema noted LLE > RLE with venous stasis dermatitis) - Back Exam Back exam: NORMAL INSPECTION - Neurological Exam Neurological exam: Alert, Oriented x3 - Psychiatric Exam Psychiatric exam: Normal Affect, Normal Mood - Skin Skin Exam: Dry, Intact, Warm Additional comments: diffuse xerosis cutis, venous stasis dermatitis as above Results - Vital Signs Recent Vital Signs: Last Vital Signs Temp 98.6 F 01/12/19 09:03 Pulse 77 01/12/19 12:51 Resp 18 01/12/19 12:51 BP 146/85 01/12/19 12:51 Pulse Ox 100 01/12/19 12:51 - Labs Result Diagrams: 01/12/19 09:40 01/12/19 09:40 Labs: Laboratory Results - last 24 hr 01/12/19 01/12/19 09:40 09:40 WBC 7.0 D RBC 3.82 Hgb 11.4 L D Hct 34.2 L MCV 89.5 MCH 29.8 MCHC 33.3 RDW 12.7 Plt Count 247 MPV 10.1 Neut % (Auto) 70.8 H Lymph % (Auto) 21.3 L Hood % (Auto) 6.0 Eos % (Auto) 1.3 L Baso % (Auto) 0.6 Lymph # (Auto) 1.5 Hood # (Auto) 0.4 Eos # (Auto) 0.1 Baso # (Auto) 0.04 Absolute Neuts (auto) 4.97 ESR 32 H Sodium 138 Potassium 4.1 Chloride 103 Carbon Dioxide 26 Anion Gap 13 BUN 21 Creatinine 0.8 Est GFR ( Amer) > 60 Est GFR (Non-Af Amer) > 60 Random Glucose 125 H Calcium 9.5 Magnesium 1.9 Total Bilirubin 1.0 AST 18 ALT 10 Alkaline Phosphatase 59 Total Protein 7.4 Albumin 4.2 Globulin 3.2 Albumin/Globulin Ratio 1.3 Assessment & Plan - Assessment and Plan (Free Text) Assessment: 78 yo M with PMH of HTN, alcoholic liver cirrhosis, angina (prior normal stress test), BPH presents to ED at the recommendation of Dr. Jean for worsening L foot ulcer and pain. 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 Molina outpatient HTN Continue home meds BPH Continue flomax DVT/GI PPX: Lovenox/pepcid Full Code HHD Monitor on med/surg Patient seen, examined, and plan discussed with my attending Dr. Jaun Reinoso D.O. IM Resident PGY-1 Pager: [phone] <Larissa Horton R - Last Filed: 01/14/19 07:41> Results - Vital Signs Recent Vital Signs: Last Vital Signs Temp 98.5 F 01/13/19 22:00 Pulse 85 01/13/19 22:00 Resp 18 01/13/19 22:00 BP 111/66 01/13/19 22:00 Pulse Ox 100 01/13/19 22:00 - Labs Result Diagrams: 01/14/19 07:00 01/13/19 06:20 Labs: Laboratory Results - last 24 hr 01/13/19 01/14/19 06:20 07:00 WBC 7.4 RBC 3.91 Hgb 11.9 L Hct 35.6 L MCV 91.0 MCH 30.4 MCHC 33.4 RDW 12.9 Plt Count 280 MPV 10.5 Neut % (Auto) 64.4 Lymph % (Auto) 24.2 Hood % (Auto) 7.0 H Eos % (Auto) 3.5 Baso % (Auto) 0.9 Lymph # (Auto) 1.8 Hood # (Auto) 0.5 Eos # (Auto) 0.3 Baso # (Auto) 0.07 Absolute Neuts (auto) 4.76 Hemoglobin A1c 6.1 Attending/Attestation - Attestation I have personally seen and examined this patient.: Yes I have fully participated in the care of the patient.: Yes I have reviewed all pertinent clinical information: Yes Notes (Text): Patient seen and examined by me with resident on 01/12/19 in the emergency room. Case including HPI, physical exam, and assessment and plan discussed with kenneth mas. Agree with above with following additions/corrections. Patient is a 78-year-old male with past medical history significant for hypertension, alcoholic liver cirrhosis, angina, BPH, chronic atrial fibrillation, chronic systolic CHF, and hypertension that presented to the emergency room with worsening of left great toe pain and possible infection. Patient states that the pain started approximately a month ago. The pain became worse approximately 1 week ago. Patient states he went to see his trigonometry teacher, Dr. Jean, yesterday on 01/11/2019. Patient states that they cut some skin off of the left great toe and was told to come to the emergency room. However, patient was unable to find a ride to get to the emergency room yesterday and therefore came in today. Patient has tried Motrin at home for pain with some relief. Patient is able to ambulate. Patient denies any current drainage from the area. No associated fevers or chills. Patient states that the pain is a sharp pain comes and goes. Patient denies any chest pain or palpitations. No shortness of breath. No headaches or dizziness. No fevers or chills. No nausea, vomiting, or abdominal pain. No dysuria. No diarrhea or constipation. 12 point review of systems reviewed by me. Please see above HPI. All other systems negative. Physical exam: General: Awake and alert lying in bed in no acute distress HEENT: Normocephalic, atraumatic. Extraocular muscles intact, pupils equal and reactive, no scleral icterus. Oropharynx is pink moist. No pharyngeal erythema or exudate appreciated. Neck is supple. Hearing grossly intact. Ears and nose externally unremarkable. Cardiovascular: Regular rhythm. Normal S1 and S2. No murmurs, rubs, or gallops appreciated Pulmonary: Normal respiratory effort. No rhonchi, rales, or wheezing appr eciated. Gastrointestinal: Soft, nondistended. Nontender. Positive bowel sounds all 4 quadrants. No guarding. Musculoskeletal: Moves all extremities. No calf tenderness. Positive left lower extremity edema. Left great toe with removed skin, no drainage, mild erythema, tender to palpation. Central nervous system: AAOx3. Dermatologic: Skin warm and dry. Assessment and plan: Patient is a 78-year-old male with past medical history significant for hypertension, alcoholic liver cirrhosis, angina, BPH, chronic atrial fibrillation, chronic systolic CHF, and hypertension that presented to the emergency room with worsening of left great toe pain and possible infection. 1. Left great toe wound. Left great toe x-ray per radiologist showed no acute fracture. Left lower extremity venous Doppler negative for DVT. ID consulted, follow-up recommendations. Patient received a dose of Teflaro in the ED. Hand Splitter consulted, follow up recommendations. Patient afebrile. No leukocytosis. 2. Chronic a-fib. Rate controlled. Continue home Verapamil, Eliquis, adn Coreg. Continue home digoxin. 3. Chronic systolic CHF. Compensated. Continue home Coreg, Lisinopril, Lasix, and aldactone 4. Essential hypertension. Continue home Coreg, Lisinopril, and Verapamil. 5. BPH. Continue home Verapamil. 6. GI/DVT prophylaxis. Pepcid/Eliquis 7. Patient is a full code. Case was discussed in detail with patient regarding current diagnosis and treatment plan. All questions answered.
--- NOTE | 2019-01-12 13:28 | RAD ---
Date of service: 01/12/2019 HISTORY: admission, medical clearance COMPARISON: 09/18/2018 FINDINGS: LUNGS: No active pulmonary disease. PLEURA: No significant pleural effusion identified, no pneumothorax apparent. CARDIOVASCULAR: No aortic atherosclerotic calcification present. Normal cardiac size. No pulmonary vascular congestion. OSSEOUS STRUCTURES: No significant abnormalities. VISUALIZED UPPER ABDOMEN: Normal. OTHER FINDINGS: None. IMPRESSION: No active disease.
--- NOTE | 2019-01-12 13:30 | RAD ---
PROCEDURE: Radiographs of the left great toe. TECHNIQUE:: AP radiograph of the left foot, with oblique and lateral view of the left great toe. COMPARISON: None. FINDINGS: BONES: No fracture. Plantar calcaneal spur. JOINTS: Normal. SOFT TISSUES: Vascular calcification noted OTHER FINDINGS: None. IMPRESSION: No acute fracture.
--- NOTE | 2019-01-12 14:20 | CP.PCM.CON ---
History of Present Illness - History of Present Illness History of Present Illness: Podiatry consult note for Dr. Jean: 78 year old male with PMH of HTN, alcoholic liver cirrhosis, angina ), and BPH seen and evaluated in the ED at the recommendation of Dr. Jean for concern of worsening L foot wound and possible infection. Patient admits to having L foot pain and blistering started 3 days ago. He had been following with Dr. Jean for the foot pain and an ulcer on his L great toe. He was seen by Dr. Jean in the office yesterday and was told to present to ED for concern of worsening infection of this L great toe ulcer and the need for IV antibiotics. Patient shows to the ED today with his daughter. He otherwise offers no other pedal complaints at this time. He denies any recent fever/chills, CP, SOB, abdominal pain/nausea/vomiting, peripheral numbness/tingling, R leg or foot pain, or urinary complaints. Past Medical Hx: HTN, alcoholic liver cirrhosis, angina (prior normal stress test), BPH Past Surgical Hx: hand surgery many years ago Allergies: NKDA Family Hx: reviewed, non-contributory Social Hx: admits to drinking about 4-5 beers or more daily since age 9. Denies current or prior tobacco use. Denies other drug use. 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 ASCITES,SCROTAL EDEMA - MUSCULOSKELETAL/RHEUMATOLOGICAL Hx Arthritis: Yes - GASTROINTESTINAL Hx Gastrointestinal Disorders: Yes Hx Liver Failure: Yes (CIRRHOSIS OF LIVER.) - GENITOURINARY/GYNECOLOGICAL Hx Genitourinary Disorders: No - PSYCHIATRIC Hx Psychophysiologic Disorder: No Hx Substance Use: No - SURGICAL HISTORY Hx Cardiac Catheterization: No Hx Coronary Artery Bypass Graft: No - ANESTHESIA Hx Anesthesia Reactions: No Meds Allergies/Adverse Reactions: Allergies Allergy/AdvReac Type Severity Reaction Status Date / Time No Known Allergies Allergy Verified 09/16/18 15:21 - Medications Medications: Current Medications Carvedilol (Coreg) 3.125 mg PO BID [facility] Digoxin (Digoxin) 0.125 mg PO 1400 [facility] Enoxaparin Sodium (Lovenox) 40 mg SC DAILY [facility]; Protocol Famotidine (Pepcid) 40 mg PO HS [facility] Furosemide (Lasix) 40 mg PO BID [facility] Lisinopril (Zestril) 2.5 mg PO DAILY [facility] Spironolactone (Aldactone) 25 mg PO DAILY [facility] Tamsulosin HCl (Flomax) 0.4 mg PO DAILY [facility] Verapamil HCl (Calan Tab) 40 mg PO TID [facility] Physical Exam - Constitutional Appears: Well, Non-toxic, No Acute Distress - Head Exam Head Exam: ATRAUMATIC, NORMOCEPHALIC - Extremities Exam Additional comments: B/L lower extremity focused exam: Vascular: DP/PT are not palpable b/l, Cap refill < 4 seconds to all digits, Temp gradient warm to cool from proximal to distal, no edema appreciated to b/l extremities. Neuro: Gross sensation intact, protective sensation diminished. Derm: An ulcer noted in thetip of the left hallux 3 cm X 1 cm X 0.3 cm. Base is granular. minimal serous drainage noted. No tracking, probing to bone or undermining. No clinical signs of active bacterial infection. Interdigital macerations present at all interdigital spaces b/l. MSK: Muscle power 5/5 to all groups, Pain on palpating the jovi-ulcerative area. - Neurological Exam Neurological exam: Alert, Oriented x3 Results - Vital Signs Recent Vital Signs: Last Vital Signs Temp 98.6 F 01/12/19 09:03 Pulse 77 01/12/19 12:51 Resp 18 01/12/19 12:51 BP 146/85 01/12/19 12:51 Pulse Ox 100 01/12/19 12:51 - Labs Result Diagrams: 01/12/19 09:40 01/12/19 09:40 Labs: Laboratory Results - last 24 hr 01/12/19 01/12/19 09:40 09:40 WBC 7.0 D RBC 3.82 Hgb 11.4 L D Hct 34.2 L MCV 89.5 MCH 29.8 MCHC 33.3 RDW 12.7 Plt Count 247 MPV 10.1 Neut % (Auto) 70.8 H Lymph % (Auto) 21.3 L Lynn % (Auto) 6.0 Eos % (Auto) 1.3 L Baso % (Auto) 0.6 Lymph # (Auto) 1.5 Lynn # (Auto) 0.4 Eos # (Auto) 0.1 Baso # (Auto) 0.04 Absolute Neuts (auto) 4.97 ESR 32 H Sodium 138 Potassium 4.1 Chloride 103 Carbon Dioxide 26 Anion Gap 13 BUN 21 Creatinine 0.8 Est GFR ( Amer) > 60 Est GFR (Non-Af Amer) > 60 Random Glucose 125 H Calcium 9.5 Magnesium 1.9 Total Bilirubin 1.0 AST 18 ALT 10 Alkaline Phosphatase 59 Total Protein 7.4 Albumin 4.2 Globulin 3.2 Albumin/Globulin Ratio 1.3 Assessment & Plan - Assessment and Plan (Free Text) Assessment: 78 year old male with PMH of HTN, alcoholic liver cirrhosis, angina, and BPH seen and evaluated in the ED worsening L foot wound and possible infection. Plan: Patient seen and evaluated Discussed in detail with Dr. Jean Charts, labs and vitals reviewed; Afebrile, WBC 7.0. Wound culture collected and sent to lab from the left hallux ulcer. left foot 3 views X-ray; No signs of OM. CHARLY/PVR done in 01/05: Limited study due to calcefic vessels, Relatively normal and symmetric PVR to b/l Ankles. B/L venous duplex: No evidence of DVT. Left hallux dressed using xeroform, and optifoam. Ordered bactroban to be added to the dressing starting tomorrow. Thank you for the consult. Podiatry will fllow up the patient while in house. - Date & Time Date: 01/12/19 Time: 14:21
--- NOTE | 2019-01-12 17:54 | CARD ---
APPROVED REPORT Date of service: 01/12/2019 EKG Measurement Heart [id number] <Conclusion> Atrial fibrillation Abnormal ECG
[2019-01-12] MEDS: Mupirocin 2% Ointment 15 GM TUBE TOP SCH (18:51)
[2019-01-12 22:27] VITALS: BMI 27.7
[2019-01-12] MEDS ORDERED: Pneumococcal 23-Valent Vaccine IM ONE (22:28)
[2019-01-12] MEDS ORDERED: Influenza Vaccine 60 mcg/0.5 mL SYR (4YR UP) IM ONE (22:28)
[2019-01-13 07:03] LABS: BASO # 0.08 K/mm3 (0.0-2.0); EOS # 0.3 (0.0-0.7); EOS % 3.2 % (1.5-5.0); HEMOGLOBIN 11.8 g/dL (14.0-18.0); LYMPH # 2.1 (1.2-3.4); LYMPH % 25.3 % (22.0-35.0); MEAN CELL VOLUME 90.1 fl (80.0-105.0); MEAN CORPUSCULAR HEMOGLOBIN 29.9 pg (25.0-35.0); MEAN CORPUSCULAR HGB CONC 33.1 g/dl (31.0-37.0); MEAN PLATELET VOLUME 10.2 fl (7.0-11.0); MONO # 0.5 (0.1-0.6); MONO % 6.5 % (1.0-6.0); RBC 3.95 10^6/uL (3.5-6.1); RED CELL DISTRIBUTION WIDTH 12.7 % (11.5-14.5); WHITE BLOOD COUNT 8.3 10^3/uL (4.5-11.0)
[2019-01-13 07:11] LABS: LDL CHOLESTEROL 105 mg/dL (0-129)
[2019-01-13 07:18] LABS: ALB/GLOB RATIO 1.3 (1.1-1.8); ALBUMIN 3.9 g/dL (3.0-4.8); ALT/SGPT < 6 U/L (7-56); AST/SGOT 19 U/L (17-59); BLOOD UREA NITROGEN 21 mg/dL (7-21); CALCIUM 9.3 mg/dL (8.4-10.5); GFR NON-AFRICAN AMERICAN > 60; HDL CHOLESTEROL 41 mg/dL (29-60)
[2019-01-13] MEDS ORDERED: Enoxaparin 40 mg Syringe SC SCH (10:00)
[2019-01-13] MEDS: Mupirocin 2% Ointment 15 GM TUBE TOP SCH ×2 (10:26→18:04)
--- NOTE | 2019-01-13 12:17 | CON ---
DATE OF CONSULTATION: 01/13/2019 TIME: 10:15 a.m. CHIEF COMPLAINT/HISTORY OF PRESENT ILLNESS: This is a 78-year-old gentleman, who was admitted with an ischemic left great toe ulcer. He was referred in by Dr. Jean for IV antibiotics and further management. I reviewed his CHARLY/PVR exam. His PVR waveforms on the left are normal to the ankle. The left metatarsal waveforms are flat, which could represent some pedal occlusive disease. I spoke briefly with Dr. Jean. We will try to manage this conservatively at this time given his pulse exam and CHARLY/PVR results. If the wound deteriorates, an arteriogram can be performed as an outpatient to evaluate the below-knee/pedal circulation. Mr. Arias has a history of alcoholic cirrhosis and cardiomyopathy. Hopefully, we can avoid the need for revascularization. Uri Dozier MD MTDAnna
--- NOTE | 2019-01-13 12:34 | CP.PCM.APN ---
Subjective - Date & Time of Evaluation Date of Evaluation: 01/13/19 Time of Evaluation: 11:30 - Subjective Subjective: Pt seen and examined at bedside. C/O mild pain to L foot that is on and off. Otherwise, pt is in no acute distress. Denies chest pain, SOB, abd pain, n/v. Objective - Vital Signs/Intake and Output Vital Signs (last 24 hours): Temp Pulse Resp BP Pulse Ox 98 F 75 18 141/88 98 01/13/19 06:00 01/13/19 09:45 01/13/19 06:00 01/13/19 09:45 01/13/19 06:00 Intake and Output: 01/13/19 01/13/19 06:59 18:59 Intake Total 240 Output Total 1200 Balance -960 - Medications Medications: Current Medications Apixaban (Eliquis) 5 mg PO BID [facility]; Protocol Last Admin: 01/13/19 09:45 Dose: 5 mg Carvedilol (Coreg) 3.125 mg PO BID [facility] Last Admin: 01/13/19 09:45 Dose: 3.125 mg Digoxin (Digoxin) 0.125 mg PO 1400 [facility] Famotidine (Pepcid) 40 mg PO HS [facility] Last Admin: 01/12/19 21:21 Dose: 40 mg Furosemide (Lasix) 40 mg PO BID [facility] Last Admin: 01/13/19 09:44 Dose: 40 mg Ketorolac Tromethamine (Toradol) 15 mg IVP Q4 PRN PRN Reason: Pain, moderate (4-7) Stop: 01/17/19 22:23 Last Admin: 01/12/19 22:39 Dose: 15 mg Lisinopril (Zestril) 2.5 mg PO DAILY [facility] Last Admin: 01/13/19 09:43 Dose: 2.5 mg Mupirocin (Bactroban Ointment) 1 gm TOP BID [facility] Last Admin: 01/13/19 10:26 Dose: Not Given Spironolactone (Aldactone) 25 mg PO DAILY [facility] Last Admin: 01/13/19 09:45 Dose: 25 mg Tamsulosin HCl (Flomax) 0.4 mg PO DAILY [facility] Last Admin: 01/13/19 09:45 Dose: 0.4 mg Verapamil HCl (Calan Tab) 40 mg PO TID [facility] Last Admin: 01/13/19 09:45 Dose: 40 mg - Labs Labs: 01/13/19 06:20 01/13/19 06:20 - Constitutional Appears: No Acute Distress - Respiratory Exam Respiratory Exam: Clear to Ausculation Bilateral, NORMAL BREATHING PATTERN - Cardiovascular Exam Cardiovascular Exam: REGULAR RHYTHM, +S1, +S2 - GI/Abdominal Exam GI & Abdominal Exam: Soft, Normal Bowel Sounds - Extremities Exam Additional comments: +mild swelling to L lower ext. L foot with dressing, c/d/i - Neurological Exam Neurological Exam: Alert, Awake, Oriented x3 Assessment and Plan - Assessment and Plan (Free Text) Assessment: Pt is a 78 y.o. male with pmhx of HTN, cirrhosis, BPH and afib who presented in ED 2/2 L heel ulcer [id number]. ITS Impressions Chest X-Ray 01/12/19 09:31 IMPRESSION: No active disease. Extremity Ultrasound 01/12/19 09:31 IMPRESSION: 1. No sonographic evidence for deep venous thrombosis in the visualized segments of the left lower extremity. Foot X-Ray 01/12/19 09:31 IMPRESSION: No acute fracture. Plan: Per Podiatry, will get MRI of L ft to r/o osteo Pending wound cx ID, Podiatry and Vascular on consult Meds per MAR Will continue to follow
--- NOTE | 2019-01-13 14:54 | CP.PCM.PN ---
<Jay Irizarry - Last Filed: 01/13/19 14:46> Subjective - Date & Time of Evaluation Date of Evaluation: 01/13/19 Time of Evaluation: 14:46 - Subjective Subjective: Podiatry consult note for Dr. Jean: 78 year old male patient seen and evaluated in the bedside for L foot ulcer and possible infection. Patient states that he still has the pain in his left big toe ulcer site when any one attempt to touch it. he denies any other pedal complaints at this time. He denies any overnight fever/chills, CP, SOB, abdominal pain/nausea/vomiting, peripheral numbness/tingling, R leg or foot pain, or urinary complaints. Objective - Vital Signs/Intake and Output Vital Signs (last 24 hours): Temp Pulse Resp BP Pulse Ox 98 F 75 18 141/88 98 01/13/19 06:00 01/13/19 09:45 01/13/19 06:00 01/13/19 09:45 01/13/19 06:00 Intake and Output: 01/13/19 01/13/19 06:59 18:59 Intake Total 240 Output Total 1200 Balance -960 - Medications Medications: Current Medications Apixaban (Eliquis) 5 mg PO BID [facility]; Protocol Last Admin: 01/13/19 09:45 Dose: 5 mg Carvedilol (Coreg) 3.125 mg PO BID [facility] Last Admin: 01/13/19 09:45 Dose: 3.125 mg Digoxin (Digoxin) 0.125 mg PO 1400 [facility] Famotidine (Pepcid) 40 mg PO HS [facility] Last Admin: 01/12/19 21:21 Dose: 40 mg Furosemide (Lasix) 40 mg PO BID [facility] Last Admin: 01/13/19 09:44 Dose: 40 mg Ketorolac Tromethamine (Toradol) 15 mg IVP Q4 PRN PRN Reason: Pain, moderate (4-7) Stop: 01/17/19 22:23 Last Admin: 01/12/19 22:39 Dose: 15 mg Lisinopril (Zestril) 2.5 mg PO DAILY [facility] Last Admin: 01/13/19 09:43 Dose: 2.5 mg Mupirocin (Bactroban Ointment) 1 gm TOP BID [facility] Last Admin: 02/27/19 10:26 Dose: Not Given Spironolactone (Aldactone) 25 mg PO DAILY [facility] Last Admin: 01/13/19 09:45 Dose: 25 mg Tamsulosin HCl (Flomax) 0.4 mg PO DAILY [facility] Last Admin: 01/13/19 09:45 Dose: 0.4 mg Verapamil HCl (Calan Tab) 40 mg PO TID [facility] Last Admin: 01/13/19 09:45 Dose: 40 mg - Labs Labs: 01/13/19 06:20 01/13/19 06:20 - Constitutional Appears: Well, Non-toxic, No Acute Distress - Head Exam Head Exam: ATRAUMATIC, NORMOCEPHALIC - Extremities Exam Additional comments: B/L lower extremity focused exam: Vascular: DP/PT are not palpable b/l, Cap refill < 4 seconds to all digits, Temp gradient warm to cool from proximal to distal, no edema appreciated to b/l e xtremities. Neuro: Gross sensation intact, protective sensation diminished. Derm: An ulcer noted in thetip of the left hallux 3 cm X 1 cm X 0.3 cm. Base is granular. minimal serous drainage noted. Mild malodor. No tracking, probing to bone or undermining. No clinical signs of active bacterial infection. Interdigital macerations present at all interdigital spaces b/l. MSK: Muscle power 5/5 to all groups, Pain on palpating the jovi-ulcerative area. - Neurological Exam Neurological Exam: Alert, Awake, Oriented x3 - Psychiatric Exam Psychiatric exam: Normal Affect, Normal Mood Assessment and Plan - Assessment and Plan (Free Text) Assessment: 78 year old male patient evaluated in the ED worsening L foot ulcer and possible infection. Plan: Patient seen and evaluated Discussed in detail with Dr. Jean Charts, labs and vitals reviewed; Afebrile, WBC 8.3. Wound culture collected and sent to lab from the left hallux ulcer. left foot 3 views X-ray; No signs of OM. Ordered L foot MRI. CHARLY/PVR done in 01/05: Limited study due to calcefic vessels, Relatively normal and symmetric PVR to b/l Ankles. B/L venous duplex: No evidence of DVT. Left hallux dressed using xeroform, and optifoam. Ordered bactroban to be added to the dressing starting tomorrow. Ordered L foot surgical shoe. Patient to ambulate in the L foot surgical shoe. Podiatry will continue to follow up the patient while in house. <Pao Jean - Last Filed: 01/17/19 13:56> Objective - Vital Signs/Intake and Output Vital Signs (last 24 hours): Temp Pulse Resp BP Pulse Ox 98 F 79 18 102/72 100 01/15/19 06:00 01/15/19 06:00 01/15/19 06:00 01/15/19 09:49 01/15/19 06:00 - Labs Labs: 01/15/19 06:30 01/15/19 06:30 Attending/Attestation - Attestation I have personally seen and examined this patient.: Yes I have fully participated in the care of the patient.: Yes I have reviewed all pertinent clinical information, including history, physical exam and plan: Yes
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
[2019-01-13] MEDS: Digoxin 125 mcg (0.125 mg) Tab PO SCH (15:35)
--- NOTE | 2019-01-13 16:27 | CP.PCM.PN ---
<Mitch Reinoso - Last Filed: 01/13/19 16:24> Subjective - Date & Time of Evaluation Date of Evaluation: 01/13/19 Time of Evaluation: 07:00 - Subjective Subjective: Mitch Reinoso DO, PGY-1 Hospitalist Progress Note for Dr. Barraza Patient was seen and examined at bedside this AM. He reports no new complaints t his morning and states he feels fine. Objective - Vital Signs/Intake and Output Vital Signs (last 24 hours): Temp Pulse Resp BP Pulse Ox 98 F 86 18 116/72 99 01/13/19 06:00 01/13/19 15:32 01/13/19 14:00 01/13/19 15:32 01/13/19 14:00 Intake and Output: 01/13/19 01/13/19 06:59 18:59 Intake Total 240 840 Output Total 1200 Balance -960 840 - Medications Medications: Current Medications Apixaban (Eliquis) 5 mg PO BID [facility]; Protocol Last Admin: 01/13/19 09:45 Dose: 5 mg Carvedilol (Coreg) 3.125 mg PO BID [facility] Last Admin: 01/13/19 09:45 Dose: 3.125 mg Digoxin (Digoxin) 0.125 mg PO 1400 [facility] Last Admin: 01/13/19 15:35 Dose: 0.125 mg Famotidine (Pepcid) 40 mg PO HS [facility] Last Admin: 01/12/19 21:21 Dose: 40 mg Furosemide (Lasix) 40 mg PO BID [facility] Last Admin: 01/13/19 09:44 Dose: 40 mg Ketorolac Tromethamine (Toradol) 15 mg IVP Q4 PRN PRN Reason: Pain, moderate (4-7) Stop: 01/17/19 22:23 Last Admin: 01/12/19 22:39 Dose: 15 mg Lisinopril (Zestril) 2.5 mg PO DAILY [facility] Last Admin: 01/13/19 09:43 Dose: 2.5 mg Mupirocin (Bactroban Ointment) 1 gm TOP BID [facility] Last Admin: 01/13/19 10:26 Dose: Not Given Spironolactone (Aldactone) 25 mg PO DAILY [facility] Last Admin: 01/13/19 09:45 Dose: 25 mg Tamsulosin HCl (Flomax) 0.4 mg PO DAILY [facility] Last Admin: 01/13/19 09:45 Dose: 0.4 mg Verapamil HCl (Calan Tab) 40 mg PO TID [facility] Last Admin: 01/13/19 15:32 Dose: 40 mg - Labs Labs: 01/13/19 06:20 01/13/19 06:20 - Constitutional Appears: Non-toxic, No Acute Distress - Head Exam Head Exam: ATRAUMATIC, NORMOCEPHALIC - Eye Exam Eye Exam: EOMI, PERRL - ENT Exam ENT Exam: Mucous Membranes Moist - Neck Exam Neck Exam: Full ROM, Normal Inspection - Respiratory Exam Respiratory Exam: Clear to Ausculation Bilateral, NORMAL BREATHING PATTERN. absent: Rales, Rhonchi, Wheezes - Cardiovascular Exam Cardiovascular Exam: REGULAR RHYTHM, RRR, +S1, +S2. absent: Gallop, Rubs, Murmur - GI/Abdominal Exam GI & Abdominal Exam: Soft, Normal Bowel Sounds. absent: Guarding, Tenderness - Extremities Exam Extremities Exam: Full ROM, Pedal Edema (non-pitting edema noted LLE > RLE with venous stasis dermatitis) - Back Exam Back Exam: NORMAL INSPECTION - Neurological Exam Neurological Exam: Alert, Awake, Oriented x3 - Psychiatric Exam Psychiatric exam: Normal Affect, Normal Mood - Skin Skin Exam: Dry, Intact, Warm Additional comments: diffuse xerosis cutis, venous stasis dermatitis as above Assessment and Plan - Assessment and Plan (Free Text) Assessment: 78 yo M with PMH of HTN, alcoholic liver cirrhosis, angina (prior normal stress test), and BPH presented at the recommendation of podiatry for L foot wound and possible infection. 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 Molina outpatient HTN Continue home meds BPH Continue flomax DVT/GI PPX: Home eliquis/pepcid Full Code HHD Monitor on med/surg Patient seen, examined, and plan discussed with my attending Marie SinhaO. Resident PGY-1 Pager: [phone] <Cathi Barraza - Last Filed: 01/18/19 13:43> Objective - Vital Signs/Intake and Output Vital Signs (last 24 hours): Temp Pulse Resp BP Pulse Ox 98 F 79 18 102/72 100 01/15/19 06:00 01/15/19 06:00 01/15/19 06:00 01/15/19 09:49 01/15/19 06:00 - Labs Labs: 01/15/19 06:30 01/15/19 06:30 Attending/Attestation - Attestation I have personally seen and examined this patient.: Yes I have fully participated in the care of the patient.: Yes I have reviewed all pertinent clinical information, including history, physical exam and plan: Yes Notes (Text): 01/18/19 13:41 Attending note; Patient seen and examined with resident. Patient is alert and awake. Denies any fevers, chills. Left foot in dressing. Patient is a 78-year-old male with past medical history significant for hypertension, alcoholic liver cirrhosis, angina, BPH, chronic atrial fibrillation, chronic systolic CHF, and hypertension that presented to the emergency room with worsening of left great toe pain and possible infection. 1. Left great toe wound. Left great toe x-ray showed no acute fracture. Left lower extremity venous Doppler negative for DVT. on Teflaro per ID. Building Service Worker recommendations appreciated. Patient has nonhealing wound. MRI of left foot Ordered to rule out osteomyelitis. patient afebrile. No leukocytosis. Wound culture pending. 2. Chronic a-fib. Rate controlled. Continue home Verapamil, Eliquis, and Coreg. Continue home digoxin. 3. Chronic systolic CHF. Compensated. Continue home Coreg, Lisinopril, Lasix, and aldactone 4. Essential hypertension. Continue home Coreg, Lisinopril, and Verapamil. 5. BPH. Continue home Verapamil. 6. GI/DVT prophylaxis. Pepcid/Eliquis 7. Patient is a full code. Upon discharge the patient will follow up with PMD DR. May. 01/18/19 13:43
[2019-01-14 07:36] LABS: BASO # 0.07 K/mm3 (0.0-2.0); BASO % 0.9 % (0.0-3.0); EOS # 0.3 (0.0-0.7); EOS % 3.5 % (1.5-5.0); HEMOGLOBIN 11.9 g/dL (14.0-18.0); LYMPH # 1.8 (1.2-3.4); LYMPH % 24.2 % (22.0-35.0); MEAN CORPUSCULAR HEMOGLOBIN 30.4 pg (25.0-35.0); MEAN CORPUSCULAR HGB CONC 33.4 g/dl (31.0-37.0); MEAN PLATELET VOLUME 10.5 fl (7.0-11.0); MONO # 0.5 (0.1-0.6); RBC 3.91 10^6/uL (3.5-6.1); RED CELL DISTRIBUTION WIDTH 12.9 % (11.5-14.5); WHITE BLOOD COUNT 7.4 10^3/uL (4.5-11.0)
[2019-01-14 07:59] LABS: ALB/GLOB RATIO 1.2 (1.1-1.8); ALBUMIN 4.2 g/dL (3.0-4.8); ALT/SGPT 6 U/L (7-56); AST/SGOT 26 U/L (17-59); BLOOD UREA NITROGEN 23 mg/dL (7-21); CALCIUM 9.7 mg/dL (8.4-10.5); GFR NON-AFRICAN AMERICAN > 60
--- NOTE | 2019-01-14 09:04 | MRI ---
Date of service: 01/13/2019 PROCEDURE: MRI of the left foot without contrast HISTORY: L hallux ulcer. R/O OM. COMPARISON: TECHNIQUE: MRI of the left foot was performed in multiple planes using multiple pulse sequences. FINDINGS: There is diffuse subcutaneous edema over the dorsum of the foot which may represent cellulitis or passive edema. There is no marrow edema to suggest osteomyelitis. The plantar fascia is normal in appearance. No evidence of abscess IMPRESSION: No evidence of osteomyelitis
--- NOTE | 2019-01-14 10:29 | CP.PCM.PN ---
<Jay Irizarry - Last Filed: 01/14/19 10:24> Subjective - Date & Time of Evaluation Date of Evaluation: 01/14/19 Time of Evaluation: 10:24 - Subjective Subjective: Podiatry consult note for Dr. Jean: 78 year old male patient seen and evaluated in the bedside for L foot ulcer and possible infection. Patient states that he still has the pain in his left big toe ulcer site when any one attempt to touch it. he denies any other pedal complaints at this time. He denies any overnight fever/chills, CP, SOB, abdominal pain/nausea/vomiting, peripheral numbness/tingling, R leg or foot pain, or urinary complaints. Objective - Vital Signs/Intake and Output Vital Signs (last 24 hours): Temp Pulse Resp BP Pulse Ox 97.4 F L 64 18 143/78 96 01/14/19 06:00 01/14/19 09:20 01/14/19 06:00 01/14/19 09:20 01/14/19 06:00 Intake and Output: 01/14/19 01/14/19 06:59 18:59 Intake Total 360 Balance 360 - Medications Medications: Current Medications Apixaban (Eliquis) 5 mg PO BID [facility]; Protocol Last Admin: 01/14/19 09:20 Dose: 5 mg Carvedilol (Coreg) 3.125 mg PO BID [facility] Last Admin: 01/14/19 09:20 Dose: 3.125 mg Digoxin (Digoxin) 0.125 mg PO 1400 [facility] Last Admin: 01/13/19 15:35 Dose: 0.125 mg Famotidine (Pepcid) 40 mg PO HS [facility] Last Admin: 01/13/19 22:01 Dose: 40 mg Furosemide (Lasix) 40 mg PO BID [facility] Last Admin: 01/14/19 09:20 Dose: 40 mg Ceftaroline Fosamil 400 mg/ (Sodium Chloride) 100 mls @ 100 mls/hr IVPB Q12 [facility]; Protocol Stop: 01/21/19 22:01 Ketorolac Tromethamine (Toradol) 15 mg IVP Q4 PRN PRN Reason: Pain, moderate (4-7) Stop: 01/17/19 22:23 Last Admin: 01/12/19 22:39 Dose: 15 mg Lisinopril (Zestril) 2.5 mg PO DAILY [facility] Last Admin: 01/14/19 09:18 Dose: 2.5 mg Mupirocin (Bactroban Ointment) 1 gm TOP BID [facility] Last Admin: 01/13/19 18:04 Dose: Not Given Spironolactone (Aldactone) 25 mg PO DAILY [facility] Last Admin: 01/14/19 09:19 Dose: 25 mg Tamsulosin HCl (Flomax) 0.4 mg PO DAILY [facility] Last Admin: 01/14/19 09:20 Dose: 0.4 mg Verapamil HCl (Calan Tab) 40 mg PO TID [facility] Last Admin: 01/14/19 09:19 Dose: 40 mg - Labs Labs: 01/14/19 07:00 01/14/19 07:00 - Constitutional Appears: Well, Non-toxic, No Acute Distress - Head Exam Head Exam: ATRAUMATIC, NORMOCEPHALIC - Extremities Exam Additional comments: B/L lower extremity focused exam: Vascular: DP/PT are not palpable b/l, Cap refill < 4 seconds to all digits, Temp gradient warm to cool from proximal to distal, no edema appreciated to b/l extremities. Neuro: Gross sensation intact, protective sensation diminished. Derm: An ulcer noted in thetip of the left hallux 3 cm X 1 cm X 0.3 cm. Base is granular. minimal serous drainage noted. Mild malodor. No tracking, probing to bone or undermining. No clinical signs of active bacterial infection. Interdigital macerations present at all interdigital spaces b/l. MSK: Muscle power 5/5 to all groups, Pain on palpating the jovi-ulcerative area. - Neurological Exam Neurological Exam: Alert, Awake, Oriented x3 - Psychiatric Exam Psychiatric exam: Normal Affect, Normal Mood Assessment and Plan - Assessment and Plan (Free Text) Assessment: 78 year old male patient evaluated in the ED worsening L foot ulcer and possible infection. Plan: Patient seen and evaluated Discussed in detail with Dr. Jean Charts, labs and vitals reviewed; Afebrile, WBC 8.3. Wound culture: Gram negative rods, Gram positive cocci, Serratia Mercescence. left foot 3 views X-ray; No signs of OM. L foot MRI: No evidence of OM. CHARLY/PVR done in 01/05: Limited study due to calcefic vessels, Relatively normal and symmetric PVR to b/l Ankles. B/L venous duplex: No evidence of DVT. Left hallux toe nail debrided using sterile nail nipper. Left hallux dressed using bctroban and mepilex. Ordered bactroban to be added to the dressing starting tomorrow. Ordered L foot surgical shoe. Patient to ambulate in the L foot surgical shoe. Podiatry will continue to follow up the patient while in house. <Pao Jean - Last Filed: 01/17/19 13:53> Objective - Vital Signs/Intake and Output Vital Signs (last 24 hours): Temp Pulse Resp BP Pulse Ox 98 F 79 18 102/72 100 01/15/19 06:00 01/15/19 06:00 01/15/19 06:00 01/15/19 09:49 01/15/19 06:00 - Labs Labs: 01/15/19 06:30 01/15/19 06:30 Attending/Attestation - Attestation I have personally seen and examined this patient.: Yes I have fully participated in the care of the patient.: Yes I have reviewed all pertinent clinical information, including history, physical exam and plan: Yes
--- NOTE | 2019-01-14 14:14 | CP.PCM.PN ---
<Mitch Reinoso - Last Filed: 01/14/19 14:15> Subjective - Date & Time of Evaluation Date of Evaluation: 01/14/19 Time of Evaluation: 07:00 - Subjective Subjective: Mitch Reinoso DO, PGY-1 Hospitalist Progress Note for Dr. Jaun Horton Patient was seen and examined at bedside this AM. He reports no new complaints this AM and states he feels fine. He denies fever/chills, CP, SOB, abd pain/nausea/vomiting, peripheral numbness/tingling, or new urinary complaints. Objective - Vital Signs/Intake and Output Vital Signs (last 24 hours): Temp Pulse Resp BP Pulse Ox 98.4 F 69 18 96/55 L 99 01/14/19 14:11 01/14/19 14:11 01/14/19 14:11 01/14/19 14:11 01/14/19 14:11 Intake and Output: 01/14/19 01/14/19 06:59 18:59 Intake Total 360 Balance 360 - Medications Medications: Current Medications Apixaban (Eliquis) 5 mg PO BID [facility]; Protocol Last Admin: 01/14/19 09:20 Dose: 5 mg Carvedilol (Coreg) 3.125 mg PO BID [facility] Last Admin: 01/14/19 09:20 Dose: 3.125 mg Digoxin (Digoxin) 0.125 mg PO 1400 [facility] Last Admin: 01/13/19 15:35 Dose: 0.125 mg Famotidine (Pepcid) 40 mg PO HS [facility] Last Admin: 01/13/19 22:01 Dose: 40 mg Furosemide (Lasix) 40 mg PO BID [facility] Last Admin: 01/14/19 09:20 Dose: 40 mg Ceftaroline Fosamil 400 mg/ (Sodium Chloride) 100 mls @ 100 mls/hr IVPB Q12 [facility]; Protocol Stop: 01/21/19 22:01 Ketorolac Tromethamine (Toradol) 15 mg IVP Q4 PRN PRN Reason: Pain, moderate (4-7) Stop: 01/17/19 22:23 Last Admin: 01/12/19 22:39 Dose: 15 mg Lisinopril (Zestril) 2.5 mg PO DAILY [facility] Last Admin: 01/14/19 09:18 Dose: 2.5 mg Mupirocin (Bactroban Ointment) 1 gm TOP BID [facility] Last Admin: 01/13/19 18:04 Dose: Not Given Spironolactone (Aldactone) 25 mg PO DAILY [facility] Last Admin: 01/14/19 09:19 Dose: 25 mg Tamsulosin HCl (Flomax) 0.4 mg PO DAILY [facility] Last Admin: 01/14/19 09:20 Dose: 0.4 mg Verapamil HCl (Calan Tab) 40 mg PO TID [facility] Last Admin: 01/14/19 09:19 Dose: 40 mg - Labs Labs: 01/14/19 07:00 01/14/19 07:00 - Constitutional Appears: Non-toxic, No Acute Distress - Head Exam Head Exam: ATRAUMATIC, NORMOCEPHALIC - Eye Exam Eye Exam: EOMI, PERRL - ENT Exam ENT Exam: Mucous Membranes Moist - Neck Exam Neck Exam: Full ROM, Normal Inspection - Respiratory Exam Respiratory Exam: Clear to Ausculation Bilateral, NORMAL BREATHING PATTERN. absent: Accessory Muscle Use, Rales, Rhonchi, Wheezes - Cardiovascular Exam Cardiovascular Exam: REGULAR RHYTHM, RRR. absent: Gallop, Rubs, Murmur - GI/Abdominal Exam GI & Abdominal Exam: Soft, Normal Bowel Sounds. absent: Tenderness - Extremities Exam Extremities Exam: Full ROM Additional comments: non-pitting edema noted LLE > RLE with venous stasis dermatitis - Back Exam Back Exam: NORMAL INSPECTION - Neurological Exam Neurological Exam: Alert, Awake, Oriented x3 - Psychiatric Exam Psychiatric exam: Normal Affect, Normal Mood - Skin Skin Exam: Dry, Intact, Warm Assessment and Plan - Assessment and Plan (Free Text) Assessment: 78 yo M with PMH of HTN, alcoholic liver cirrhosis, angina (prior normal stress test), and BPH presented at the recommendation of podiatry for L foot wound and possible infection. Plan: L Foot Wound Suspect most likely 2/2 trauma Afebrile, no leukocytosis MRI without findings of osteomyelitis Per ID, need to continue teflaro pending sensitivity results of wound cx brad orrow ID, IR consults placed, all recs appreciated AFib Continue home verapamil, coreg, digoxin, eliquis Consider cardiology consultation if becomes symptomatic or worsens Systolic CHF Continue home medications, including lasix No active issues Follows with Dr. Molina outpatient No active issues HTN Continue home meds, no active issues BPH Continue flomax, no active issues DVT/GI PPX: Home eliquis/pepcid Full Code HHD Monitor on med/surg Patient seen, examined, and plan discussed with my attending Dr. Jaun Reinoso D.O. IM Resident PGY-1 Pager: [phone] <HortonLarissa R - Last Filed: 01/16/19 14:07> Objective - Vital Signs/Intake and Output Vital Signs (last 24 hours): Temp Pulse Resp BP Pulse Ox 98 F 79 18 102/72 100 01/15/19 06:00 01/15/19 06:00 01/15/19 06:00 01/15/19 09:49 01/15/19 06:00 - Labs Labs: 01/15/19 06:30 01/15/19 06:30 Attending/Attestation - Attestation I have personally seen and examined this patient.: Yes I have fully participated in the care of the patient.: Yes I have reviewed all pertinent clinical information, including history, physical exam and plan: Yes Notes (Text): Patient seen and examined by me with resident at 11:45AM on 01/14/19. Case including HPI, physical exam, and assessment and plan discussed with resident. Agree with above with following additions/corrections. Patient is a 78-year-old male with past medical history significant for hypertension, alcoholic liver cirrhosis, angina, BPH, chronic atrial fibrillation, chronic systolic CHF, and hypertension that presented to the emergency room with worsening of left great toe pain and possible infection. Patient states he is feeling ok. Complains of intermittent pain in his left toe but states it is bearable. Patient denies any chest pain or palpitations. No shortness of breath. No headaches or dizziness. No fevers or chills. No nausea, vomiting, or abdominal pain. No dysuria. No diarrhea or constipation. Patient is ambulating. Physical exam: General: Awake and alert lying in bed in no acute distress HEENT: Normocephalic, atraumatic. Extraocular muscles intact, pupils equal and reactive, no scleral icterus. Oropharynx is pink moist. No pharyngeal erythema or exudate appreciated. Neck is supple. Cardiovascular: Regular rhythm. Normal S1 and S2. No murmurs, rubs, or gallops appreciated Pulmonary: Normal respiratory effort. No rhonchi, rales, or wheezing appreciated. Gastrointestinal: Soft, nondistended. Nontender. Positive bowel sounds all 4 quadrants. No guarding. Musculoskeletal: Moves all extremities. No calf tenderness. Positive left lower extremity edema. Left great toe dressing clean, dry, and intact. Central nervous system: AAOx3. Dermatologic: Skin warm and dry. Assessment and plan: Patient is a 78-year-old male with past medical history significant for hypertension, alcoholic liver cirrhosis, angina, BPH, chronic atrial fibrillation, chronic systolic CHF, and hypertension that presented to the emergency room with worsening of left great toe pain and possible infection. 1. Left great toe wound. Left great toe x-ray per radiologist showed no acute fracture. Left lower extremity venous Doppler negative for DVT. ID following, recommendations appreciated. Patient started on Teflaro per ID. Refractory Technician following, recommendations. Patient afebrile. No leukocytosis. Wound culture pending. MRI left foot per radiologist showed no evidence of osteomyelitis. 2. Chronic a-fib. Rate controlled. Continue home Verapamil, Eliquis, and Coreg. Continue home digoxin. 3. Chronic systolic CHF. Compensated. Continue home Coreg, Lisinopril, Lasix, and aldactone 4. Essential hypertension. Continue home Coreg, Lisinopril, and Verapamil. 5. BPH. Continue home Verapamil. 6. GI/DVT prophylaxis. Pepcid/Eliquis 7. Patient is a full code. Case was discussed in detail with patient regarding current diagnosis and treatment plan. All questions answered.
[2019-01-14] MEDS: Mupirocin 2% Ointment 15 GM TUBE TOP SCH ×2 (15:05→17:19)
--- NOTE | 2019-01-14 15:06 | CP.PCM.PN ---
Subjective - Date & Time of Evaluation Date of Evaluation: 01/14/19 Time of Evaluation: 11:45 - Subjective Subjective: Feeling better, no fevers, less pain in the left hallux, no nausea, no diarrhea. Objective - Vital Signs/Intake and Output Vital Signs (last 24 hours): Temp Pulse Resp BP Pulse Ox 98 F 86 18 116/72 99 01/13/19 06:00 01/13/19 14:00 01/13/19 14:00 01/13/19 14:00 01/13/19 14:00 Intake and Output: 01/13/19 01/13/19 06:59 18:59 Intake Total 240 840 Output Total 1200 Balance -960 840 - Medications Medications: Current Medications Apixaban (Eliquis) 5 mg PO BID [facility]; Protocol Last Admin: 01/13/19 09:45 Dose: 5 mg Carvedilol (Coreg) 3.125 mg PO BID [facility] Last Admin: 01/13/19 09:45 Dose: 3.125 mg Digoxin (Digoxin) 0.125 mg PO 1400 [facility] Famotidine (Pepcid) 40 mg PO HS [facility] Last Admin: 01/12/19 21:21 Dose: 40 mg Furosemide (Lasix) 40 mg PO BID [facility] Last Admin: 01/13/19 09:44 Dose: 40 mg Ketorolac Tromethamine (Toradol) 15 mg IVP Q4 PRN PRN Reason: Pain, moderate (4-7) Stop: 01/17/19 22:23 Last Admin: 01/12/19 22:39 Dose: 15 mg Lisinopril (Zestril) 2.5 mg PO DAILY [facility] Last Admin: 01/13/19 09:43 Dose: 2.5 mg Mupirocin (Bactroban Ointment) 1 gm TOP BID [facility] Last Admin: 01/13/19 10:26 Dose: Not Given Spironolactone (Aldactone) 25 mg PO DAILY [facility] Last Admin: 01/13/19 09:45 Dose: 25 mg Tamsulosin HCl (Flomax) 0.4 mg PO DAILY [facility] Last Admin: 01/13/19 09:45 Dose: 0.4 mg Verapamil HCl (Calan Tab) 40 mg PO TID [facility] Last Admin: 01/13/19 09:45 Dose: 40 mg - Labs Labs: 01/13/19 06:20 01/13/19 06:20 - Constitutional Appears: No Acute Distress, Chronically Ill - Head Exam Head Exam: NORMAL INSPECTION - Neck Exam Neck Exam: absent: Meningismus - Respiratory Exam Respiratory Exam: Decreased Breath Sounds - Cardiovascular Exam Cardiovascular Exam: +S1, +S2 - GI/Abdominal Exam GI & Abdominal Exam: Soft. absent: Tenderness - Extremities Exam Additional comments: left hallux with dressings in place Assessment and Plan - Assessment and Plan (Free Text) Plan: Assessment left hallux ulcer, infected with gram positive cocci, gram negative bacilli and Serratia, no evidence of osteomyelitis on MRI HTN alcoholic liver cirrhosis BPH Plan continue Teflaro day 2 pending final wound cx results; reviewed MRI result, follow up CHARLY's discussed with Dr. Jean will monitor clinically
[2019-01-14] MEDS: Digoxin 125 mcg (0.125 mg) Tab PO SCH (15:07)
--- NOTE | 2019-01-14 15:07 | CP.PCM.PN ---
Subjective - Date & Time of Evaluation Date of Evaluation: 01/14/19 Time of Evaluation: 11:45 - Subjective Subjective: Decreased pain in the left hallux, no fevers, no nausea. Objective - Vital Signs/Intake and Output Vital Signs (last 24 hours): Temp Pulse Resp BP Pulse Ox 98.4 F 69 18 96/55 L 99 01/14/19 14:11 01/14/19 14:11 01/14/19 14:11 01/14/19 14:11 01/14/19 14:11 Intake and Output: 01/14/19 01/14/19 06:59 18:59 Intake Total 360 540 Balance 360 540 - Medications Medications: Current Medications Apixaban (Eliquis) 5 mg PO BID [facility]; Protocol Last Admin: 01/14/19 09:20 Dose: 5 mg Carvedilol (Coreg) 3.125 mg PO BID [facility] Last Admin: 01/14/19 09:20 Dose: 3.125 mg Digoxin (Digoxin) 0.125 mg PO 1400 [facility] Last Admin: 01/13/19 15:35 Dose: 0.125 mg Famotidine (Pepcid) 40 mg PO HS [facility] Last Admin: 01/13/19 22:01 Dose: 40 mg Furosemide (Lasix) 40 mg PO BID [facility] Last Admin: 01/14/19 09:20 Dose: 40 mg Ceftaroline Fosamil 400 mg/ (Sodium Chloride) 100 mls @ 100 mls/hr IVPB Q12 [facility]; Protocol Stop: 01/21/19 22:01 Ketorolac Tromethamine (Toradol) 15 mg IVP Q4 PRN PRN Reason: Pain, moderate (4-7) Stop: 01/17/19 22:23 Last Admin: 01/12/19 22:39 Dose: 15 mg Lisinopril (Zestril) 2.5 mg PO DAILY [facility] Last Admin: 01/14/19 09:18 Dose: 2.5 mg Mupirocin (Bactroban Ointment) 1 gm TOP BID [facility] Last Admin: 01/14/19 15:05 Dose: Not Given Spironolactone (Aldactone) 25 mg PO DAILY [facility] Last Admin: 01/14/19 09:19 Dose: 25 mg Tamsulosin HCl (Flomax) 0.4 mg PO DAILY [facility] Last Admin: 01/14/19 09:20 Dose: 0.4 mg Verapamil HCl (Calan Tab) 40 mg PO TID [facility] Last Admin: 01/14/19 09:19 Dose: 40 mg - Labs Labs: 01/14/19 07:00 01/14/19 07:00 - Constitutional Appears: Chronically Ill - Head Exam Head Exam: NORMAL INSPECTION - Respiratory Exam Respiratory Exam: Decreased Breath Sounds - Cardiovascular Exam Cardiovascular Exam: +S1, +S2 - GI/Abdominal Exam GI & Abdominal Exam: Soft. absent: Tenderness - Extremities Exam Additional comments: left hallux with dressings in place Assessment and Plan - Assessment and Plan (Free Text) Plan: Assessment left hallux ulcer, infected with gram positive cocci, gram negative bacilli and Serratia, no evidence of osteomyelitis on MRI HTN alcoholic liver cirrhosis BPH Plan continue Teflaro day 2 pending final wound cx results; reviewed MRI result, follow up CHARLY's discussed with Dr. Jean will monitor clinically
[2019-01-14 15:09] VITALS: PULSE 76
[2019-01-15 06:59] LABS: BASO # 0.05 K/mm3 (0.0-2.0); BASO % 0.7 % (0.0-3.0); EOS # 0.2 (0.0-0.7); EOS % 2.9 % (1.5-5.0); HEMOGLOBIN 12.4 g/dL (14.0-18.0); LYMPH # 1.8 (1.2-3.4); LYMPH % 24.7 % (22.0-35.0); MEAN CELL VOLUME 90.4 fl (80.0-105.0); MEAN CORPUSCULAR HEMOGLOBIN 30.6 pg (25.0-35.0); MEAN CORPUSCULAR HGB CONC 33.9 g/dl (31.0-37.0); MEAN PLATELET VOLUME 10.2 fl (7.0-11.0); MONO # 0.4 (0.1-0.6); MONO % 5.8 % (1.0-6.0); RBC 4.05 10^6/uL (3.5-6.1); RED CELL DISTRIBUTION WIDTH 12.6 % (11.5-14.5); WHITE BLOOD COUNT 7.2 10^3/uL (4.5-11.0)
[2019-01-15 07:53] LABS: ALB/GLOB RATIO 1.3 (1.1-1.8); ALBUMIN 4.2 g/dL (3.0-4.8); ALT/SGPT 13 U/L (7-56); AST/SGOT 24 U/L (17-59); BLOOD UREA NITROGEN 23 mg/dL (7-21); CALCIUM 9.6 mg/dL (8.4-10.5); GFR NON-AFRICAN AMERICAN > 60
[2019-01-15 08:21] VITALS: PULSE 79; TEMP 98; O2SAT 100
[2019-01-15 09:58] VITALS: BP 102/72
--- NOTE | 2019-01-15 13:04 | CP.PCM.PN ---
<Jay Irizarry - Last Filed: 01/15/19 13:00> Subjective - Date & Time of Evaluation Date of Evaluation: 01/15/19 Time of Evaluation: 13:00 - Subjective Subjective: Podiatry consult note for Dr. Whatley: 78 year old male patient seen and evaluated in the bedside for L foot infected ulcer. Patient states that he still has the pain in his left big toe ulcer site when any one attempt to touch it but the pain decreased since yesterday. he denies any other pedal complaints at this time. He denies any overnight fever/chills, CP, SOB, abdominal pain/nausea/vomiting, peripheral numbness/tingling, R leg or foot pain. Objective - Vital Signs/Intake and Output Vital Signs (last 24 hours): Temp Pulse Resp BP Pulse Ox 98 F 79 18 102/72 100 01/15/19 06:00 01/15/19 06:00 01/15/19 06:00 01/15/19 09:49 01/15/19 06:00 Intake and Output: 01/15/19 01/15/19 06:59 18:59 Intake Total 980 Balance 980 - Medications Medications: Current Medications Apixaban (Eliquis) 5 mg PO BID [facility]; Protocol Last Admin: 01/15/19 09:50 Dose: 5 mg Carvedilol (Coreg) 3.125 mg PO BID [facility] Last Admin: 01/15/19 09:50 Dose: 3.125 mg Digoxin (Digoxin) 0.125 mg PO 1400 [facility] Last Admin: 01/14/19 15:07 Dose: 0.125 mg Famotidine (Pepcid) 40 mg PO HS [facility] Last Admin: 01/14/19 21:41 Dose: 40 mg Furosemide (Lasix) 40 mg PO BID [facility] Last Admin: 01/15/19 09:49 Dose: 40 mg Ceftaroline Fosamil 400 mg/ (Sodium Chloride) 100 mls @ 100 mls/hr IVPB Q12 [facility]; Protocol Stop: 01/21/19 22:01 Last Admin: 01/15/19 09:50 Dose: 100 mls/hr Ketorolac Tromethamine (Toradol) 15 mg IVP Q4 PRN PRN Reason: Pain, moderate (4-7) Stop: 01/17/19 22:23 Last Admin: 01/12/19 22:39 Dose: 15 mg Lisinopril (Zestril) 2.5 mg PO DAILY [facility] Last Admin: 01/15/19 09:50 Dose: 2.5 mg Mupirocin (Bactroban Ointment) 1 gm TOP BID [facility] Last Admin: 01/14/19 17:19 Dose: Not Given Spironolactone (Aldactone) 25 mg PO DAILY [facility] Last Admin: 01/15/19 09:49 Dose: 25 mg Tamsulosin HCl (Flomax) 0.4 mg PO DAILY [facility] Last Admin: 01/15/19 09:50 Dose: 0.4 mg Verapamil HCl (Calan Tab) 40 mg PO TID [facility] Last Admin: 01/15/19 09:50 Dose: 40 mg - Labs Labs: 01/15/19 06:30 01/15/19 06:30 - Constitutional Appears: Well, Non-toxic, No Acute Distress - Head Exam Head Exam: ATRAUMATIC, NORMOCEPHALIC - Extremities Exam Additional comments: B/L lower extremity focused exam: Vascular: DP/PT are not palpable b/l, Cap refill < 4 seconds to all digits, Temp gradient warm to cool from proximal to distal, no edema appreciated to b/l extremities. Neuro: Gross sensation intact, protective sensation diminished. Derm: An ulcer noted in thetip of the left hallux 3 cm X 1 cm X 0.3 cm, Improving. Base is granular. minimal serous drainage noted. No malodor. No tracking, probing to bone or undermining. No clinical signs of active bacterial infection. Interdigital macerations present at all interdigital spaces b/l. MSK: Muscle power 5/5 to all groups, Pain on palpating the jovi-ulcerative area. - Neurological Exam Neurological Exam: Alert, Awake, Oriented x3 - Psychiatric Exam Psychiatric exam: Normal Affect, Normal Mood Assessment and Plan - Assessment and Plan (Free Text) Assessment: 78 year old male patient evaluated in the ED worsening L foot infected ulcer. Plan: Patient seen and evaluated Discussed in detail with Dr. Whatley Charts, labs and vitals reviewed; Afebrile, WBC 7.2. Wound culture: Gram negative rods, Gram positive cocci, Serratia Mercescence. left foot 3 views X-ray; No signs of OM. L foot MRI: No evidence of OM. CHARLY/PVR done in 01/05: Limited study due to calcefic vessels, Relatively normal and symmetric PVR to b/l Ankles. B/L venous duplex: No evidence of DVT. Left hallux dressed using bctroban and mepilex. Ordered bactroban to be added to the dressing. Patient to ambulate in the L foot surgical shoe. Podiatry will continue to follow up the patient while in house. Patient to follow up with Dr. Jean upon discharge. <Branden Whatley - Last Filed: 01/15/19 14:06> Objective - Vital Signs/Intake and Output Vital Signs (last 24 hours): Temp Pulse Resp BP Pulse Ox 98 F 79 18 102/72 100 01/15/19 06:00 01/15/19 06:00 01/15/19 06:00 01/15/19 09:49 01/15/19 06:00 Intake and Output: 01/15/19 01/15/19 06:59 18:59 Intake Total 980 Balance 980 - Medications Medications: Current Medications Apixaban (Eliquis) 5 mg PO BID [facility]; Protocol Last Admin: 01/15/19 09:50 Dose: 5 mg Carvedilol (Coreg) 3.125 mg PO BID [facility] Last Admin: 01/15/19 09:50 Dose: 3.125 mg Digoxin (Digoxin) 0.125 mg PO 1400 [facility] Last Admin: 01/14/19 15:07 Dose: 0.125 mg Famotidine (Pepcid) 40 mg PO HS [facility] Last Admin: 01/14/19 21:41 Dose: 40 mg Furosemide (Lasix) 40 mg PO BID [facility] Last Admin: 01/15/19 09:49 Dose: 40 mg Ceftaroline Fosamil 400 mg/ (Sodium Chloride) 100 mls @ 100 mls/hr IVPB Q12 [facility]; Protocol Stop: 01/21/19 22:01 Last Admin: 01/15/19 09:50 Dose: 100 mls/hr Ketorolac Tromethamine (Toradol) 15 mg IVP Q4 PRN PRN Reason: Pain, moderate (4-7) Stop: 01/17/19 22:23 Last Admin: 01/12/19 22:39 Dose: 15 mg Lisinopril (Zestril) 2.5 mg PO DAILY [facility] Last Admin: 01/15/19 09:50 Dose: 2.5 mg Mupirocin (Bactroban Ointment) 1 gm TOP BID [facility] Last Admin: 01/14/19 17:19 Dose: Not Given Spironolactone (Aldactone) 25 mg PO DAILY [facility] Last Admin: 01/15/19 09:49 Dose: 25 mg Tamsulosin HCl (Flomax) 0.4 mg PO DAILY [facility] Last Admin: 01/15/19 09:50 Dose: 0.4 mg Verapamil HCl (Calan Tab) 40 mg PO TID [facility] Last Admin: 01/15/19 09:50 Dose: 40 mg - Labs Labs: 01/15/19 06:30 01/15/19 06:30 Attending/Attestation - Attestation I have personally seen and examined this patient.: Yes I have fully participated in the care of the patient.: Yes I have reviewed all pertinent clinical information, including history, physical exam and plan: Yes
--- NOTE | 2019-01-15 16:49 | CP.PCM.DIS ---
Provider - Provider Date of Admission: 01/14/19 13:59 Attending physician: Larissa Horton DO Primary care physician: Felipe May MD Consults: 01/12/19 09:43 Infectious Disease Consult Routine Comment: lt. foot ulcer, non healing, send by thad Consulting Provider: Álvaro Oshea Consulting Physician: Álvaro Oshea Reason for Consult: lt. foot ulcer, non healing, send by thad Vascular Surgery Routine Comment: Consulting Provider: Uri Dozier Physician Instructions: routine consult request by dr. jean Reason For Exam: LT. 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 Physician Instructions: Reason For Exam: EVALUATION 01/12/19 22:33 Social Work Referral Routine Comment: NEEDS ASSISTANCE AT HOME Physician Instructions: Reason For Exam: EVALUATION Time Spent in preparation of Discharge (in minutes): 40 Diagnosis - Discharge Diagnosis (1) Atrial fibrillation with RVR Status: Chronic (2) Cellulitis Status: Acute (3) Cirrhosis of liver Status: Chronic (4) Foot ulcer Status: Acute Hospital Course - Lab Results Lab Results: Micro Results 01/12/19 09:31 Toe Gram Stain - Final 01/12/19 09:31 Toe Wound Culture - Final Serratia Marcescens Providencia Rettgeri Enterococcus Faecalis 01/12/19 10:10 Blood-Venous Blood Culture - Preliminary NO GROWTH AFTER 3 DAYS 01/12/19 09:40 Blood-Venous Blood Culture - Preliminary NO GROWTH AFTER 3 DAYS Most Recent Lab Values WBC 7.2 10^3/uL (4.5-11.0) 01/15/19 06:30 RBC 4.05 10^6/uL (3.5-6.1) 01/15/19 06:30 Hgb 12.4 g/dL (14.0-18.0) L 01/15/19 06:30 Hct 36.6 % (42.0-52.0) L 01/15/19 06:30 MCV 90.4 fl (80.0-105.0) 01/15/19 06:30 MCH 30.6 pg (25.0-35.0) 01/15/19 06:30 MCHC 33.9 g/dl (31.0-37.0) 01/15/19 06:30 RDW 12.6 % (11.5-14.5) 01/15/19 06:30 Plt Count 290 10^3/uL (120.0-450.0) 01/15/19 06:30 MPV 10.2 fl (7.0-11.0) 01/15/19 06:30 Neut % (Auto) 65.9 % (50.0-68.0) 01/15/19 06:30 Lymph % (Auto) 24.7 % (22.0-35.0) 01/15/19 06:30 [place] % (Auto) 5.8 % (1.0-6.0) 01/15/19 06:30 Eos % (Auto) 2.9 % (1.5-5.0) 01/15/19 06:30 Baso % (Auto) 0.7 % (0.0-3.0) 01/15/19 06:30 Lymph # (Auto) 1.8 (1.2-3.4) 01/15/19 06:30 [place] # (Auto) 0.4 (0.1-0.6) 01/15/19 06:30 Eos # (Auto) 0.2 (0.0-0.7) 01/15/19 06:30 Baso # (Auto) 0.05 K/mm3 (0.0-2.0) 01/15/19 06:30 Absolute Neuts (auto) 4.77 (1.4-6.5) 01/15/19 06:30 ESR 32 mm/hr (0.00-15.0) H 01/12/19 09:40 Sodium 137 mmol/L (132-148) 01/15/19 06:30 Potassium 4.9 mmol/L (3.6-5.0) 01/15/19 06:30 Chloride 101 mmol/L (98-107) 01/15/19 06:30 Carbon Dioxide 29 mmol/L (21-33) 01/15/19 06:30 Anion Gap 12 (10-20) 01/15/19 06:30 BUN 23 mg/dL (7-21) H 01/15/19 06:30 Creatinine 1.0 mg/dl (0.8-1.5) 01/15/19 06:30 Est GFR ( Amer) > 60 01/15/19 06:30 Est GFR (Non-Af Amer) > 60 01/15/19 06:30 Random Glucose 103 mg/dL (70-110) 01/15/19 06:30 Hemoglobin A1c 6.1 % (4.2-6.5) 01/13/19 06:20 Calcium 9.6 mg/dL (8.4-10.5) 01/15/19 06:30 Phosphorus 4.9 mg/dL (2.5-4.5) H 01/13/19 06:20 Magnesium 2.0 mg/dL (1.7-2.2) 01/13/19 06:20 Total Bilirubin 1.4 mg/dL (0.2-1.3) H 01/15/19 06:30 AST 24 U/L (17-59) 01/15/19 06:30 ALT 13 U/L (7-56) 01/15/19 06:30 Alkaline Phosphatase 62 U/L (38-126) 01/15/19 06:30 C-React Prot High Sens 5.29 mg/L (1.00-3.00) H 01/12/19 09:40 Total Protein 7.5 g/dL (5.8-8.3) 01/15/19 06:30 Albumin 4.2 g/dL (3.0-4.8) 01/15/19 06:30 Globulin 3.3 gm/dL 01/15/19 06:30 Albumin/Globulin Ratio 1.3 (1.1-1.8) 01/15/19 06:30 Triglycerides 52 mg/dL (35-160) 01/13/19 06:20 Cholesterol 162 mg/dL (130-200) 01/13/19 06:20 LDL Cholesterol Direct 105 mg/dL (0-129) 01/13/19 06:20 HDL Cholesterol 41 mg/dL (29-60) 01/13/19 06:20 TSH 3rd Generation 1.30 mIU/mL (0.46-4.68) 01/13/19 06:20 - Hospital Course Hospital Course: Mitch Reinoso DO, PGY-1 Hospitalist Discharge Summary for Dr. Jaun Horton Prior to admission: Jayce is a pleasant 78 year old male with PMH of HTN, alcoholic liver cirrhosis, angina (prior normal stress test), and BPH presented at the recommendation of podiatry for L foot wound and possible infection. He was subsequently admitted for additional imaging and treatment with IV abx. Hospitalization course: Jayce had MRI of the L foot completed and did not show any signs of osteomyelitis or other concerning findings. He was treated with IV ceftaroline per ID recs. ID evaluated and followed the patient and recommended patient be discharged on cefpodoxime. He was also instructed to apply bactroban ointment daily with dressing to the L foot. He was instructed to follow with PMD and outside operator regularly. Medications were delivered to bedside prior to discharge. Discharge plan was discussed with patient in detail. All questions were answered. Patient seen, examined, and discharge plan discussed with my attending Dr. Jaun Reinoso D.O. IM Resident PGY-1 Discharge Exam - Head Exam Head Exam: ATRAUMATIC, NORMOCEPHALIC - Eye Exam Eye Exam: EOMI, PERRL - ENT Exam ENT Exam: Mucous Membranes Moist - Neck Exam Neck exam: Full Rom, Normal Inspection - Respiratory Exam Respiratory Exam: Clear to PA & Lateral, NORMAL BREATHING PATTERN, UNREMARKABLE. absent: Accessory Muscle Use, Rales, Rhonchi, Wheezes, Respiratory Distress - Cardiovascular Exam Cardiovascular Exam: REGULAR RHYTHM, RRR, +S1, +S2. absent: Diastolic murmur, Gallop, Rubs, Systolic Murmur - GI/Abdominal Exam GI & Abdominal Exam: Normal Bowel Sounds, Soft, Unremarkable. absent: Tenderness - Extremities Exam Extremities exam: full ROM Additional comments: non-pitting edema noted LLE > RLE with venous stasis dermatitis, L foot ulceration with minimal purulent drainage and minimal erythema - Back Exam Back exam: NORMAL INSPECTION - Neurological Exam Neurological exam: Alert, Oriented x3 - Psychiatric Exam Psychiatric exam: Normal Affect, Normal Mood - Skin Skin Exam: Dry, Intact, Warm Discharge Plan - Discharge Medications Prescriptions: Cefpodoxime [Vantin] 200 mg PO BID #14 tab - Follow Up Plan Condition: STABLE Disposition: HOME/ ROUTINE Instructions: Preventing Falls in the Older Adult, Diabetic Foot Ulcer (DC), Foot Care for Diabetics Additional Instructions: Please follow up with your primary medical doctor, Dr. May, within 3-5 days of discharge. Please follow up with the outside operator, Dr. Jean, within 3-5 days of discharge. We have given you a prescription for bactroban ointment, please apply this to your left foot wound daily. Please take antibiotics as prescribed. Please continue to take all your home medications as previously prescribed. If any of your symptoms return, please present to nearest emergency department. Referrals: Felipe May MD [Primary Care Provider] - Pao Jean DPM [Staff Provider] -
--- NOTE | 2019-01-15 22:28 | PN ---
DATE: 01/15/2019 SUBJECTIVE: The patient was seen earlier today in 567, bed 2. No fevers or chills. No nausea. No vomiting. PHYSICAL EXAMINATION: VITAL SIGNS: Temperature 98, blood pressure is 110/70, respiratory rate of 18, heart rate of 71. HEENT: Unremarkable. NECK: Supple. LUNGS: Decreased breath sounds. HEART: Normal S1 and S2. ABDOMEN: Soft. LABORATORY DATA: Reveals a white count of 7.2, hemoglobin of 12. BUN of 23, creatinine of 1. Culture reveals Serratia, Providencia and Enterococcus on the toe. Blood cultures are negative. ASSESSMENT AND PLAN: A 78-year-old male who was seen earlier today with a left hallux ulcer, negative osteomyelitis on MRI, on Teflaro, may switch to Vantin 200 mg p.o. b.i.d. Discussed with resident and the nursing staff and nurse practitioner, 200 mg of Vantin p.o. b.i.d. x7 days. Follow up with PMD. Álvaro Oshea MD
== END 2019-01-15 15:50 | disposition home or self-care (01) | DRG 593 ==
LOC: ED 08:44 → ERH 12:04 → 5RNO 22:02 → OBSVTOIN 01-14 13:59
PROVIDERS: ADMIT Hospitalist; ATTEND Hospitalist
PROC: 0HBRXZZ Excision of Toe Nail, External Approach (ICD-10-PCS; principal; 2019-01-14)
DX: L97.529 Non-pressure chronic ulcer of other part of left foot with unspecified severity (principal); I50.22 Chronic systolic (congestive) heart failure; I42.6 Alcoholic cardiomyopathy; L03.032 Cellulitis of left toe; K70.30 Alcoholic cirrhosis of liver without ascites; I11.0 Hypertensive heart disease with heart failure; I48.2 Chronic atrial fibrillation; N40.0 Benign prostatic hyperplasia without lower urinary tract symptoms; B95.2 Enterococcus as the cause of diseases classified elsewhere

== ENCOUNTER 2019-01-25 13:52 | Day surgery (SDC) | payer MEDICARE ==
[2019-01-25 14:01] VITALS: BMI 28.0
[2019-01-25 14:27] LABS: BASO # 0.05 K/mm3 (0.0-2.0); BASO % 0.6 % (0.0-3.0); EOS # 0.2 (0.0-0.7); EOS % 2.1 % (1.5-5.0); LYMPH # 1.9 (1.2-3.4); LYMPH % 24.6 % (22.0-35.0); MEAN CELL VOLUME 90.9 fl (80.0-105.0); MEAN CORPUSCULAR HEMOGLOBIN 30.3 pg (25.0-35.0); MEAN CORPUSCULAR HGB CONC 33.3 g/dl (31.0-37.0); MEAN PLATELET VOLUME 9.9 fl (7.0-11.0); MONO # 0.6 (0.1-0.6); MONO % 7.1 % (1.0-6.0); RBC 3.96 10^6/uL (3.5-6.1); RED CELL DISTRIBUTION WIDTH 12.1 % (11.5-14.5); WHITE BLOOD COUNT 7.7 10^3/uL (4.5-11.0)
[2019-01-25 14:31] LABS: INR 1.19; PARTIAL THROMBOPLASTIN TIME 33.5 Seconds (26.9-38.3); PROTHROMBIN TIME 13.4 SECONDS (9.4-12.5)
[2019-01-25 14:32] LABS: BLOOD UREA NITROGEN 22 mg/dL (7-21); CALCIUM 9.9 mg/dL (8.4-10.5); GFR NON-AFRICAN AMERICAN > 60
[2019-01-25] MEDS ORDERED: Lidocaine PF 2% (5 ml) Inj (For Cardiac Arrhy) ONE (14:33)
[2019-01-25] MEDS ORDERED: Nitroglycerin 50mg in D5W 50 MG/250 ML BOTTLE IV ONE (14:33)
[2019-01-25] MEDS ORDERED: Iodixanol 320 mg/ml 150 ml Bottle IV ONE (14:33)
[2019-01-25] MEDS ORDERED: Iodixanol 320 MG/ML 200 ML BOTTLE IV ONE (14:33)
[2019-01-25] MEDS ORDERED: Nitroglycerin 2% Ointment Foilpak UD TOP ONE (16:42)
[2019-01-25] MEDS ORDERED: Heparin25000 units/250ml 1/2NS 25,000 UNITS/250 ML BAG IV ONE (16:45)
[2019-01-25] MEDS: Heparin25000 units/250ml 1/2NS 25,000 UNITS/250 ML BAG IV PRN (16:45)
[2019-01-25] MEDS ORDERED: Oxycodone/Acetaminophen 5/325 mg Tab PO PRN (17:08)
[2019-01-25] MEDS ORDERED: Morphine 4 mg/ml ISec IVP PRN (17:11)
[2019-01-25] MEDS ORDERED: Sodium Chloride 0.45% 1,000 ML IV SCH (17:15)
[2019-01-25] MEDS ORDERED: Morphine 4 mg/ml ISec ONE (17:37)
--- NOTE | 2019-01-25 18:48 | VASCULAR ---
Date of service: 01/25/2019 PROCEDURE: 1. Abdominal aortogram and bilateral lower extremity runoff with left selective views. 2. Left anterior tibial artery angioplasty and focal stent placement 3. Attempted left dorsalis pedis angioplasty HISTORY: Severe peripheral vascular disease. Severe rest pain and gangrene left great toe PHYSICIAN(S): Uri Dozier M.D. TECHNIQUE: The relative risks and indications of the procedure were explained to the patient and his daughter and consent obtained. The patient was hydrated prior to the procedure and the appropriate labs drawn. The patient was placed supine on the arteriogram table and the right groin prepped and draped in the usual sterile fashion. Conscious sedation and monitoring were provided throughout the procedure by a nurse. Under ultrasound guidance, the right common femoral artery was punctured with a micropuncture set. A 5 Slovenian sheath was placed. Through the sheath and over guidewire a 5 Slovenian flush catheter was placed the abdominal aorta at the level of the renal arteries and a DSA abdominal pelvic arteriogram performed. The catheter was pulled down the bifurcation bilateral oblique DSA pelvic arteriograms performed. Overlapping bilateral lower extremity DSA arteriograms were obtained from the inguinal ligaments to the feet. The distal images were degraded by motion. A 0.035 angled Glidewire was advanced over the bifurcation and placed in the distal left SFA.. A 6 Slovenian 65 cm destination sheath was placed in the distal left SFA.. Heparin 5000 units IV and nitroglycerin in 250 mcg aliquots were given. The occlusion of the distal left anterior tibial artery was crossed rather easily with a 0.018 support wire. Exchange is made for a 0.014 support wire. The mid to distal left anterior tibial artery was dilated with a 3.5 x 150 balloon. There was residual focal stenosis the distal 3rd of the left anterior tibial artery. A focal 3.0 by 30 mm coronary drug-eluting stent was placed with a good angiographic result. Attempts a dilating the left dorsalis pedis artery were unsuccessful due to heavy calcification The sheath was removed and hemostasis obtained with a Perclose device. Given the extensive pedal disease, the patient will be heparinized overnight with Vasa dilators applied to the left foot FINDINGS: There are single renal arteries bilaterally which are widely patent and normal in appearance. The nephrograms are symmetric in appearance. The infrarenal abdominal aorta is widely patent with smooth calcification and no significant stenosis.. The aortic bifurcation is widely patent. The common and external iliac arteries are tortuous and widely patent. The internal iliac arteries are patent bilaterally. Right lower extremity: The right common femoral artery is patent. The right profunda femoral artery is patent. The right superficial femoral artery is patent and calcified distally without radiographically significant stenosis. The right popliteal artery is patent. Limited imaging of the right tibial arteries is noted due to motion. There appears to be 2 vessel calcified runoff with disease distally.. Left lower extremity: Left common femoral artery is patent. The left profunda femoral artery is patent. The left superficial femoral artery is patent and continuous without a radiographically significant stenosis. The left popliteal artery is calcified and patent. The left anterior tibial artery occludes distally. There is severe disease of the left wrist Elisabeth pedis artery which is occluded. The left peroneal artery occludes proximally. The left posterior tibial artery occludes at the ankle. The left dorsalis pedis artery and left plantar arch are not opacified. There is severe left pedal occlusive disease. Named vessels are not present. IMPRESSION: 1.Distal left anterior tibial artery angioplasty and focal stent placement. 2. Severe left pedal occlusive disease. The plantar arch and dorsalis pedis arteries are calcified and occluded.
[2019-01-26] MEDS: Heparin25000 units/250ml 1/2NS 25,000 UNITS/250 ML BAG IV PRN (00:32)
[2019-01-26 06:11] VITALS: RESP 18; TEMP 98.4; O2SAT 97
[2019-01-26 07:19] LABS: HEMOGLOBIN 12.1 g/dL (14.0-18.0); MEAN CELL VOLUME 91.5 fl (80.0-105.0); MEAN CORPUSCULAR HEMOGLOBIN 30.3 pg (25.0-35.0); MEAN CORPUSCULAR HGB CONC 33.1 g/dl (31.0-37.0); MEAN PLATELET VOLUME 10.3 fl (7.0-11.0); RED CELL DISTRIBUTION WIDTH 12.1 % (11.5-14.5); WHITE BLOOD COUNT 9.8 10^3/uL (4.5-11.0)
[2019-01-26 07:35] LABS: BLOOD UREA NITROGEN 18 mg/dL (7-21); CALCIUM 9.7 mg/dL (8.4-10.5); GFR NON-AFRICAN AMERICAN > 60
[2019-01-26 09:40] VITALS: BP 124/61; PULSE 88
[2019-01-26] MEDS ORDERED: Digoxin 125 mcg (0.125 mg) Tab PO SCH (14:00)
== END 2019-01-26 11:35 | disposition home or self-care (01) ==
LOC: SDSVAS 13:52 → 2RSO 17:18 → SDSVAS 01-26 11:35
PROVIDERS: ATTEND Radiology Vascular & Interventional Radiology
DX: I70.262 Atherosclerosis of native arteries of extremities with gangrene, left leg (principal)
CPT/HCPCS: 36415 ×2; 37230; 75625; 75716; 80048 ×2; 85025; 85027; 85610; 85730 ×2; 99152; 99153; C1725 ×6; C1760 ×2; C1769 ×6; C1874; C1887 ×2; C1894; J1644 ×4; J2270; J2405; J7030 ×2; Q9966; Q9967

== ENCOUNTER → 2019-03-23 | Outpatient (CLI) | payer MEDICARE, OTHER | LOC: PAT 10:41 ==

== ENCOUNTER 2019-03-31 06:07 | Day surgery (SDC) | payer MEDICARE, OTHER ==
[2019-03-23 12:10] VITALS: BMI 27.4
[2019-03-31] MEDS ORDERED: Etomidate 20 mg/10ml Inj IV ONE (07:47)
[2019-03-31] MEDS ORDERED: Midazolam 2 MG/2 ML VIAL ONE (07:47)
[2019-03-31] MEDS ORDERED: Lidocaine 1% Inj (20ml) ONE (07:48)
[2019-03-31] MEDS ORDERED: Bupivacaine 0.5% 50 ML IJ ONE ×2 (07:48→08:00)
[2019-03-31] MEDS ORDERED: ePHEDrine 50 mg/ml Inj ONE (07:51)
[2019-03-31] MEDS ORDERED: Lidocaine 2% Inj (20ml) IJ ONE (08:00)
[2019-03-31] MEDS ORDERED: CeFAZolin 1 gm in NS 100ml IVPB ONE (08:02)
[2019-03-31] MEDS ORDERED: HYDROmorphone 0.5 mg/0.5 ml ISec IVP PRN (08:48)
--- NOTE | 2019-03-31 08:52 | PCM.SURG1 ---
Surgeon's Initial Post Op Note - Surgeon's Notes Surgeon: Dr. Jean DPM Agronomy Specialist: Dr. Moi Good, Dr. Lakeshia South Type of Anesthesia: IV Sedation, Local Anesthesia Administered By: Dr. Schwartz Pre-Operative Diagnosis: Left hallux diabetic foot ulcer Operative Findings: See dictation. I: Preop: 12 cc of 1:1 mix of 0.5% marcaine plain, 1% lidocaine plain. M: 3-0 Nylon Post-Operative Diagnosis: Same Operation Performed: Left hallux amputation Specimen/Specimens Removed: Bone and soft tissue from left foot Estimated Blood Loss: EBL {In ML}: 1 Blood Products Given: N/A Drains Used: No Drains Post-Op Condition: Good Date of Surgery/Procedure: 03/31/19 Time of Surgery/Procedure: 08:51
[2019-03-31] MEDS ORDERED: Oxycodone/Acetaminophen 5/325 mg Tab PO PRN ×2 (08:53)
[2019-03-31] MEDS ORDERED: Lactated Ringer's 1,000 ML IV SCH (09:00)
[2019-03-31] MEDS ORDERED: HYDROmorphone 0.5 mg/0.5 ml ISec ONE (09:16)
[2019-03-31 10:00] VITALS: RESP 18; TEMP 97.3; O2SAT 100
--- NOTE | 2019-03-31 10:24 | RAD ---
Date of service: 03/31/2019 PROCEDURE: Left Foot Radiographs. HISTORY: Left hallux amputation COMPARISON: None. TECHNIQUE: Four views obtained. FINDINGS: BONES: Amputation of the 1st distal phalanx JOINTS: Normal. SOFT TISSUES: Normal. OTHER FINDINGS: Calcaneal spurs. Vascular calcifications IMPRESSION: Amputation of the 1st distal phalanx
[2019-03-31 10:43] VITALS: BP 127/68; PULSE 65
--- NOTE | 2019-03-31 23:17 | OP ---
PROCEDURE DATE: 03/31/2019 PREOPERATIVE DIAGNOSIS: Left hallux diabetic foot ulcer. POSTOPERATIVE DIAGNOSIS: Left hallux diabetic foot ulcer. PROCEDURE: Left hallux partial amputation. SURGEON: Pao Jean DPM ASSISTANTS: Moi Good, PGY-1; Lakeshia Rodriguez, PGY-1 TYPE OF ANESTHESIA: IV sedation and local. ANESTHESIA ADMINISTERED BY: Nam Schwartz MD INDICATIONS: The patient is a 78-year-old male with the above diagnosis. The patient has exhausted all conservative treatment at this time and now requires surgical intervention. The patient signed the consent after careful explanation of risks, benefits, complications, and alternatives for surgical procedure. No guarantees were given nor implied. N.p.o. status was confirmed prior to taking the patient to the OR. PREPARATION: The patient was brought into the operating room and placed on the operating room table in the supine position. A time-out was performed for identification of the correct patient and procedure. The patient received a total of 12 mL of a 1:1 mixture of 0.5% Marcaine plain and 2% lidocaine plain in a ring block fashion to the left hallux. The left foot was then prepped and draped in a normal sterile manner and the procedure began. No tourniquet was used during the procedure. DESCRIPTION OF PROCEDURE: Attention was drawn to the left hallux where a fish-mouth circumferential incision was made extending to the dorsal aspect of the hallux IPJ and centrally distal to the hallux IPJ using a #15 blade. The incision was then extended down to the subcutaneous layer down to the level of the bone using a bone clamp to stabilize the toe. The distal hallux was then disarticulated at the level of the IPJ. All bone and soft tissue was sent off the table for Pathology. At that time, the wound culture was performed and the site was then copiously irrigated with sterile saline and a clean culture was then taken. The surgical site was then closed with 3-0 Nylon suture in a simple suture technique. The site was then dressed with Xeroform, 4x4 gauze and Kerlix with a stocking placed superficially. POSTOPERATIVE CONDITION: The patient tolerated the local anesthesia and procedure well and was escorted to the recovery room with neurovascular status intact to the left foot. The patient is to be partial weightbearing to the heel in a surgical shoe with soft padding. Upon discharge, the patient is to follow up in Dr. Jean's office within one week of discharge. Moi Good DPM Pao Jean DPM
== END 2019-03-31 12:00 | disposition home or self-care (01) ==
LOC: SDS 06:07
PROVIDERS: ATTEND Podiatrist
DX: E11.621 Type 2 diabetes mellitus with foot ulcer (principal); L97.529 Non-pressure chronic ulcer of other part of left foot with unspecified severity; E11.69 Type 2 diabetes mellitus with other specified complication; M86.172 Other acute osteomyelitis, left ankle and foot
CPT/HCPCS: 28825; 73630; 87070; 87181; 88305; 88311; J0690; J1170; J2250; J3010; J7120 ×2